=== PATIENT | male | born 1990 | race Caucasian/White ===

== ENCOUNTER 2018-12-26 11:15 | Emergency (ER) | payer SELFPAY ==
[2018-12-26 11:20] VITALS: BP 182/107; PULSE 113; RESP 19; TEMP 36.8; O2SAT 98
[2018-12-26 15:13] VITALS: BP 145/62; PULSE 101; RESP 19; O2SAT 94
--- NOTE | 2018-12-26 15:25 | ED.SOB ---
HPI - SOB/Dyspnea <GEORGE Roberts - Last Filed: 12/26/18 22:12> General Chief Complaint: Shortness of Breath/Dyspnea Stated Complaint: 'POSSIBLE CHF' Time Seen by Provider: 12/26/18 15:00 Source: patient Mode of arrival: ambulatory Limitations: no limitations History of Present Illness 28-year-old male with history of reflux and is a former smoker here for complaint of having occasional swelling to his high lower extremities over the past couple of months. She also reports he has had occasional bouts of shortness of breath. He states that he has had a productive cough over the past few days that had some blood tinged sputum. He denies any fevers. No chest pain. He states he is concerned for heart failure. He denies any stressors relievers of his symptoms. Positive p.o. intake. No nausea vomiting. He denies any other concerns or complaints at this timeframe. He denies any prior cardiac history. Related Data Home Medications Medication Instructions Recorded Confirmed omeprazole 40 mg PO DAILY 12/26/18 12/26/18 Allergies Allergy/AdvReac Type Severity Reaction Status Date / Time tramadol [From ULTRA] Allergy Unknown Unverified 12/26/18 11:24 Review of Systems <GEORGE Roberts - Last Filed: 12/26/18 22:12> Constitutional Denies chills, Denies fever(s), Denies lethargy and Denies weakness Eyes Denies change in vision, Denies eye discharge, Denies irritation and Denies loss of vision ENT Ears, Nose, Mouth, and Throat: Denies change in voice, Denies neck pain, Denies sore throat and Denies throat swelling Cardiovascular Denies chest pain, Denies irregular heart rhythm, Denies lightheadedness, Denies palpitations, Reports dyspnea and Denies orthopnea Respiratory Reports cough, Reports dyspnea and Denies wheezing Gastrointestinal Gastrointestinal: Denies abdominal pain, Denies change in bowel habits, Denies diarrhea, Denies nausea and Denies vomiting Genitourinary Denies hematuria, Denies flank pain, Denies urinary incontinence and Denies urinary urgency Musculoskeletal Denies neck pain Comments: Edema to lower extremities Integumentary/Breasts Denies pruritus, Denies erythema, Denies rash and Denies wounds Neurologic Denies confusion, Denies loss of vision and Denies weakness Psychiatric Denies anxiety, Denies confusion, Denies depression, Denies homicidal ideation and Denies suicidal ideation Endocrine Denies palpitations Hematologic/Lymphatic Denies easy bruising Allergic/Immunologic Denies urticaria, Denies throat swelling and Denies wheezing PFSH <GEORGE Roberts - Last Filed: 12/26/18 22:12> Social History Smoking Status: Former smoker Social History Smoking Status: Former smoker Exam <GEORGE Roberts - Last Filed: 12/26/18 22:12> Initial Vital Signs Initial Vital Signs: Vital Signs Temperature 98.2 F 12/26/18 11:20 Pulse Rate 113 H 12/26/18 11:20 Respiratory Rate 12/26/18 11:20 Blood Pressure 182/107 H 12/26/18 11:20 Pulse Oximetry 98 12/26/18 11:20 Const General: cooperative and well developed Nutritional Appearance: well nourished Orientation: alert, awake, oriented x3 and not confused HENNM Mouth: oral mucosae normal and moist mucous membranes Eyes Conjunctivae: conjunctivae normal Sclera: sclerae normal Pupils: PERRL EOM: EOM intact bilaterally Resp Effort & Inspection: normal respiratory effort, able to speak in complete sentences, no respiratory distress and no use of accessory muscles Auscultation: clear to auscultation bilaterally, no rales, no rhonchi and no wheezes Cardio Rate: regular rate Rhythm: regular rhythm Heart Sounds: no click, no gallops, no murmurs and no rubs Pulses: normal peripheral pulses Skin General: no rashes or lesions noted, No jaundice and No petechiae Neuro General: alert, oriented x3, gait normal and no focal motor deficits Speech: speech normal Extrem Other: bilateral lower extremities with distal CMS intact. No appreciated edema on exam. <Michaelle Romero DO - Last Filed: 12/27/18 08:28> Initial Vital Signs Initial Vital Signs: Vital Signs Temperature 98.2 F 12/26/18 11:20 Pulse Rate 113 H 12/26/18 11:20 Respiratory Rate 12/26/18 11:20 Blood Pressure 182/107 H 12/26/18 11:20 Pulse Oximetry 98 12/26/18 11:20 Course <GEORGE Roberts - Last Filed: 12/26/18 22:12> Orders Ordered: ED Orders 12/26/18 15:30 XR chest 1V Stat 12/26/18 15:45 B Type Natriuretic Peptide Stat Complete Blood Count AUTO DIFF Stat Comprehensive Metabolic Panel Stat Troponin & CK Cardiac Panel Stat Vital Signs - 8 hr 12/26/18 15:13 12/26/18 16:00 12/26/18 17:04 Pulse Rate 101 H 79 69 Respiratory Rate 19 18 17 Blood Pressure [Left Arm] 145/62 H 136/60 127/82 Pulse Oximetry 94 99 98 <Michaelle Romero DO - Last Filed: 12/27/18 08:28> Orders Ordered: ED Orders 12/26/18 15:30 XR chest 1V Stat 12/26/18 15:45 B Type Natriuretic Peptide Stat Complete Blood Count AUTO DIFF Stat Comprehensive Metabolic Panel Stat Troponin & CK Cardiac Panel Stat Vital Signs - 8 hr 12/26/18 15:13 12/26/18 16:00 12/26/18 17:04 Pulse Rate 101 H 79 69 Respiratory Rate 19 18 17 Blood Pressure [Left Arm] 145/62 H 136/60 127/82 Pulse Oximetry 94 99 98 MDM - SOB/Dyspnea <GEORGE Roberts - Last Filed: 12/26/18 22:12> Lab Data Result diagrams: 12/26/18 15:45 12/26/18 15:45 Lab Results 12/26/18 12/26/18 Range/Units 15:45 15:45 WBC 9.0 (4.5-11.0) X10^3/uL RBC 5.39 (4.5-5.9) X10^6/uL Hgb 15.6 (13.5-17.5) g/dL Hct 46.0 (41-53) % MCV 85.4 (80-100) fL MCH 29.0 (26-34) PG MCHC 34.0 (30-36) % RDW 14.5 (11.6-14.8) % Plt Count 323 (150-400) X10^3/uL Neut % (Auto) 72.2 (50-75) % Lymph % (Auto) 17.5 L (25-40) % [place] % (Auto) 8.1 (3-14) % Eos % (Auto) 1.0 L (2-4) % Baso % (Auto) 1.2 (0-2) % Neut # (Auto) 6500 (4887-8401) /uL Lymph # (Auto) 1600 (2292-0883) /uL [place] # (Auto) 700 (0-900) /uL Eos # (Auto) 100 (0-450) /uL Baso # (Auto) 100 (0-100) /uL Sodium 141 (137-145) mmol/L Potassium 4.2 (3.4-5.1) mmol/L Chloride 101 (98-107) mmol/L Carbon Dioxide 30 (22-32) mmol/L BUN 14 (9-20) mg/dL Creatinine 0.70 (0.66-1.25) mg/dL Estimated GFR > 60.0 (>60) mL/min BUN/Creatinine Ratio 20.0 (6-22) Glucose 156 H (70-100) mg/dL Calcium 9.7 (8.4-10.2) mg/dL Total Bilirubin 0.3 (0.2-1.3) mg/dL AST 34 (17-59) IU/L ALT 59 (21-72) IU/L Alkaline Phosphatase 65 (38-126) U/L Total Creatine Kinase 139 (55-170) U/L CK-MB (CK-2) 0.90 (<2.37) ng/mL CK-MB (CK-2) Rel Index 0.6 L (1.5-5.0) % Troponin I < 0.012 (0.01-0.034) ng/mL B-Natriuretic Peptide < 100 (<100) Total Protein 8.1 (6.3-8.2) g/dL Albumin 4.5 (3.5-5.0) g/dL Globulin 3.6 (1.7-4.1) g/dL Albumin/Globulin Ratio 1.3 (1.0-2.8) Imaging Data Chest x-ray: Radiologist's impression: [address] [address] XRay Report Signed Patient: Piter Domínguez#: [id number] : 1990Acct:[id number] Age/Sex: MDate of Service: 12/26/18 Loc: ED Accession Number: [id number] Procedure: XR chest 1V Ordering Provider: Willy Jaramillo PROCEDURE: XR CHEST 1V INDICATIONS: swelling to bilateral lower extremities productive cough TECHNIQUE: One view of the chest was acquired. COMPARISON: [facility], , CHEST 2 VIEW, 11/28/2017, 8:03. FINDINGS: Surgical changes and devices: None. Lungs and pleura: Lungs are clear. No pleural effusions or pneumothorax. Mediastinum: Mediastinal contours appear normal. Heart size is normal. Bones and chest wall: No suspicious bony lesions. Overlying soft tissues appear unremarkable. IMPRESSION: Portable chest within normal limits. Dictated by: Damian Culp M.D. on 12/26/2018 at 14:55 Approved by: Damian Culp M.D. on 12/26/2018 at 14:55 ECG Data Interpretation: EKG shows sinus rhythm with no ST elevation or depression. No ectopy. Ventricular rate of 105. Pr interval 118. QRS duration of 88. QTC of 380. MDM Narrative Medical decision making narrative: chest x-ray was obtained was negative for any acute findings. EKG shows sinus rhythm with no ST elevation or depression. No ectopy. Cardiac enzymes were obtained were unremarkable. BNP was obtained and was negative. CBC andCMP was obtained was unremarkable. patient was reassured. Cough suggestive of a viral upper respiratory infection. subjective edema is normally after patient works and has been on his feet all day Suggestive of dependent edema. Will have him use elevation to help with any edema.Follow up with primary care provider next week for re-evaluation. For any worsening symptoms return emergency room. <Michaelle Romero DO - Last Filed: 12/27/18 08:28> Lab Data Lab Results 12/26/18 12/26/18 Range/Units 15:45 15:45 WBC 9.0 (4.5-11.0) X10^3/uL RBC 5.39 (4.5-5.9) X10^6/uL Hgb 15.6 (13.5-17.5) g/dL Hct 46.0 (41-53) % MCV 85.4 (80-100) fL MCH 29.0 (26-34) PG MCHC 34.0 (30-36) % RDW 14.5 (11.6-14.8) % Plt Count 323 (150-400) X10^3/uL Neut % (Auto) 72.2 (50-75) % Lymph % (Auto) 17.5 L (25-40) % [place] % (Auto) 8.1 (3-14) % Eos % (Auto) 1.0 L (2-4) % Baso % (Auto) 1.2 (0-2) % Neut # (Auto) 6500 (4101-0328) /uL Lymph # (Auto) 1600 (5967-8350) /uL [place] # (Auto) 700 (0-900) /uL Eos # (Auto) 100 (0-450) /uL Baso # (Auto) 100 (0-100) /uL Sodium 141 (137-145) mmol/L Potassium 4.2 (3.4-5.1) mmol/L Chloride 101 (98-107) mmol/L Carbon Dioxide 30 (22-32) mmol/L BUN 14 (9-20) mg/dL Creatinine 0.70 (0.66-1.25) mg/dL Estimated GFR > 60.0 (>60) mL/min BUN/Creatinine Ratio 20.0 (6-22) Glucose 156 H (70-100) mg/dL Calcium 9.7 (8.4-10.2) mg/dL Total Bilirubin 0.3 (0.2-1.3) mg/dL AST 34 (17-59) IU/L ALT 59 (21-72) IU/L Alkaline Phosphatase 65 (38-126) U/L Total Creatine Kinase 139 (55-170) U/L CK-MB (CK-2) 0.90 (<2.37) ng/mL CK-MB (CK-2) Rel Index 0.6 L (1.5-5.0) % Troponin I < 0.012 (0.01-0.034) ng/mL B-Natriuretic Peptide < 100 (<100) Total Protein 8.1 (6.3-8.2) g/dL Albumin 4.5 (3.5-5.0) g/dL Globulin 3.6 (1.7-4.1) g/dL Albumin/Globulin Ratio 1.3 (1.0-2.8) Discharge Plan Departure Patient Disposition: Home Clinical Impression: Viral URI, Dependent edema Discharge Date/Time: 12/26/18 17:11 Interventions: ED Discharge Assessment Last Done: 12/26/18 17:11 Instructions: DI for Viral Upper Respiratory Infection -- Adult, DI for Dependent Edema Activity Restrictions/Additional Instructions: EKG chest x-ray and laboratory results today were unremarkable. Cough and blood tinged sputum presents as viral upper respiratory infection. Edema to lower extremities presents as a dependent edema did recommend using elevation to a help with any edema that occurs. Follow up with primary care provider next week for re-evaluation. For any worsening symptoms return to the emergency room. Prescriptions: No Action omeprazole 40 mg Capsule,Delayed Release(Dr/Ec) 40 mg PO DAILY RF: 0 Referrals: [facility] [Provider Group] <Michaelle Romero DO - Last Filed: 12/27/18 08:28> Cosign ED Attending Cosignature Attestation: I was immediately available in the department for consultation. This documentation has been reviewed and I agree with assessment and plan. Supervised by Michaelle Romero DO
--- NOTE | 2018-12-26 15:30 | DI.RAD.S_ITS ---
PROCEDURE: XR CHEST 1V INDICATIONS: swelling to bilateral lower extremities productive cough TECHNIQUE: One view of the chest was acquired. COMPARISON: [facility], , CHEST 2 VIEW, 11/28/2017, 8:03. FINDINGS: Surgical changes and devices: None. Lungs and pleura: Lungs are clear. No pleural effusions or pneumothorax. Mediastinum: Mediastinal contours appear normal. Heart size is normal. Bones and chest wall: No suspicious bony lesions. Overlying soft tissues appear unremarkable. IMPRESSION: Portable chest within normal limits. Dictated by: Damian Culp M.D. on 12/26/2018 at 14:55 Approved by: Damian Culp M.D. on 12/26/2018 at 14:55
[2018-12-26 15:56] LABS: Add Manual Diff / Slide Review NO; Basophils Absolute Auto 100 /uL (0-100); Basophils Percent Auto 1.2 % (0-2); Eosinophils Absolute Auto 100 /uL (0-450); Hemoglobin 15.6 g/dL (13.5-17.5); Lymphocytes Absolute Auto 1600 /uL (1100-4500); Lymphocytes Percent Auto 17.5 % (25-40); Mean Corpuscular Volume 85.4 fL (80-100); Monocytes Absolute Auto 700 /uL (0-900); Monocytes Percent Auto 8.1 % (3-14); Neutrophils Absolute Auto 6500 /uL (1500-7000); Neutrophils Percent Auto 72.2 % (50-75); Platelet Count 323 X10^3/uL (150-400); Red Blood Cell Count 5.39 X10^6/uL (4.5-5.9); Red Cell Distribution Width 14.5 % (11.6-14.8)
[2018-12-26 16:00] VITALS: BP 136/60; PULSE 79; RESP 18; O2SAT 99
[2018-12-26 16:11] LABS: Alanine Aminotransferase 59 IU/L (21-72); Albumin 4.5 g/dL (3.5-5.0); Albumin Globulin Ratio 1.3 (1.0-2.8); Alkaline Phosphatase 65 U/L (38-126); Aspartate Aminotransferase 34 IU/L (17-59); Bilirubin Total 0.3 mg/dL (0.2-1.3); Blood Urea Nitrogen 14 mg/dL (9-20); Calcium 9.7 mg/dL (8.4-10.2); Carbon Dioxide 30 mmol/L (22-32); Chloride 101 mmol/L (98-107); Creatine Kinase 139 U/L (55-170); Estimated Glomerular Filt Rate > 60.0 mL/min (>60); Globulin 3.6 g/dL (1.7-4.1); Glucose 156 mg/dL (70-100); HEMOLYSIS < 15 (0-50); Potassium 4.2 mmol/L (3.4-5.1); Sodium 141 mmol/L (137-145); Total Protein 8.1 g/dL (6.3-8.2)
[2018-12-26 16:23] LABS: B Type Natriuretic Peptide < 100 (<100); Troponin I < 0.012 ng/mL (0.01-0.034)
[2018-12-26 16:26] LABS: CKMB % Relative Index 0.6 % (1.5-5.0)
--- NOTE | 2018-12-26 17:00 | ED_ITS ---
HPI - SOB/Dyspnea <GEORGE Roberts - Last Filed: 12/26/18 22:12> General Chief Complaint: Shortness of Breath/Dyspnea Stated Complaint: 'POSSIBLE CHF' Time Seen by Provider: 12/26/18 15:00 Source: patient Mode of arrival: ambulatory Limitations: no limitations History of Present Illness 28-year-old male with history of reflux and is a former smoker here for complaint of having occasional swelling to his high lower extremities over the past couple of months. She also reports he has had occasional bouts of sh ortness of breath. He states that he has had a productive cough over the past few days that had some blood tinged sputum. He denies any fevers. No chest pain. He states he is concerned for heart failure. He denies any stressors relievers of his symptoms. Positive p.o. intake. No nausea vomiting. He denies any other concerns or complaints at this timeframe. He denies any prior cardiac history. Related Data Home Medications Medication Instructions Recorded Confirmed omeprazole 40 mg PO DAILY 12/26/18 12/26/18 Allergies Allergy/AdvReac Type Severity Reaction Status Date / Time tramadol [From ULTRAM] Allergy Unknown Unverified 12/26/18 11:24 Review of Systems <GEORGE Roberts - Last Filed: 12/26/18 22:12> Constitutional Denies chills, Denies fever(s), Denies lethargy and Denies weakness Eyes Denies change in vision, Denies eye discharge, Denies irritation and Denies loss of vision ENT Ears, Nose, Mouth, and Throat: Denies change in voice, Denies neck pain, Denies sore throat and Denies throat swelling Cardiovascular Denies chest pain, Denies irregular heart rhythm, Denies lightheadedness, Denies palpitations, Reports dyspnea and Denies orthopnea Respiratory Reports cough, Reports dyspnea and Denies wheezing Gastrointestinal Gastrointestinal: Denies abdominal pain, Denies change in bowel habits, Denies diarrhea, Denies nausea and Denies vomiting Genitourinary Denies hematuria, Denies flank pain, Denies urinary incontinence and Denies urinary urgency Musculoskeletal Denies neck pain Comments: Edema to lower extremities Integumentary/Breasts Denies pruritus, Denies erythema, Denies rash and Denies wounds Neurologic Denies confusion, Denies loss of vision and Denies weakness Psychiatric Denies anxiety, Denies confusion, Denies depression, Denies homicidal ideation and Denies suicidal ideation Endocrine Denies palpitations Hematologic/Lymphatic Denies easy bruising Allergic/Immunologic Denies urticaria, Denies throat swelling and Denies wheezing PFSH <GEORGE Roberts - Last Filed: 12/26/18 22:12> Social History Smoking Status: Former smoker Social History Smoking Status: Former smoker Exam <GEORGE Roberts - Last Filed: 12/26/18 22:12> Initial Vital Signs Initial Vital Signs: Vital Signs Temperature 98.2 F 12/26/18 11:20 Pulse Rate 113 H 12/26/18 11:20 Respiratory Rate 12/26/18 11:20 Blood Pressure 182/107 H 12/26/18 11:20 Pulse Oximetry 98 12/26/18 11:20 Const General: cooperative and well developed Nutritional Appearance: well nourished Orientation: alert, awake, oriented x3 and not confused HENPA Mouth: oral mucosae normal and moist mucous membranes Eyes Conjunctivae: conjunctivae normal Sclera: sclerae normal Pupils: PERRL EOM: EOM intact bilaterally Resp Effort & Inspection: normal respiratory effort, able to speak in complete sentences, no respiratory distress and no use of accessory muscles Auscultation: clear to auscultation bilaterally, no rales, no rhonchi and no wheezes Cardio Rate: regular rate Rhythm: regular rhythm Heart Sounds: no click, no gallops, no murmurs and no rubs Pulses: normal peripheral pulses Skin General: no rashes or lesions noted, No jaundice and No petechiae Neuro General: alert, oriented x3, gait normal and no focal motor deficits Speech: speech normal Extrem Other: bilateral lower extremities with distal CMS intact. No appreciated edema on exam. <Michaelle Romero DO - Last Filed: 12/27/18 08:28> Initial Vital Signs Initial Vital Signs: Vital Signs Temperature 98.2 F 12/26/18 11:20 Pulse Rate 113 H 12/26/18 11:20 Respiratory Rate 12/26/18 11:20 Blood Pressure 182/107 H 12/26/18 11:20 Pulse Oximetry 98 12/26/18 11:20 Course <GEORGE Roberts - Last Filed: 12/26/18 22:12> Orders Ordered: ED Orders 12/26/18 15:30 XR chest 1V Stat 12/26/18 15:45 B Type Natriuretic Peptide Stat Complete Blood Count AUTO DIFF Stat Comprehensive Metabolic Panel Stat Troponin & CK Cardiac Panel Stat Vital Signs - 8 hr 12/26/18 15:13 12/26/18 16:00 12/26/18 17:04 Pulse Rate 101 H 79 69 Respiratory Rate 19 18 17 Blood Pressure [Left Arm] 145/62 H 136/60 127/82 Pulse Oximetry 94 99 98 <Michaelle Romero DO - Last Filed: 12/27/18 08:28> Orders Ordered: ED Orders 12/26/18 15:30 XR chest 1V Stat 12/26/18 15:45 B Type Natriuretic Peptide Stat Complete Blood Count AUTO DIFF Stat Comprehensive Metabolic Panel Stat Troponin & CK Cardiac Panel Stat Vital Signs - 8 hr 12/26/18 15:13 12/26/18 16:00 12/26/18 17:04 Pulse Rate 101 H 79 69 Respiratory Rate 19 18 17 Blood Pressure [Left Arm] 145/62 H 136/60 127/82 Pulse Oximetry 94 99 98 MDM - SOB/Dyspnea <GEORGE Roberts - Last Filed: 12/26/18 22:12> Lab Data Result diagrams: 12/26/18 15:45 12/26/18 15:45 Lab Results 12/26/18 12/26/18 Range/Units 15:45 15:45 WBC 9.0 (4.5-11.0) X10^3/uL RBC 5.39 (4.5-5.9) X10^6/uL Hgb 15.6 (13.5-17.5) g/dL Hct 46.0 (41-53) % MCV 85.4 (80-100) fL MCH 29.0 (26-34) PG MCHC 34.0 (30-36) % RDW 14.5 (11.6-14.8) % Plt Count 323 (150-400) X10^3/uL Neut % (Auto) 72.2 (50-75) % Lymph % (Auto) 17.5 L (25-40) % [place] % (Auto) 8.1 (3-14) % Eos % (Auto) 1.0 L (2-4) % Baso % (Auto) 1.2 (0-2) % Neut # (Auto) 6500 (2281-6560) /uL Lymph # (Auto) 1600 (7172-0879) /uL [place] # (Auto) 700 (0-900) /uL Eos # (Auto) 100 (0-450) /uL Baso # (Auto) 100 (0-100) /uL Sodium 141 (137-145) mmol/L Potassium 4.2 (3.4-5.1) mmol/L Chloride 101 (98-107) mmol/L Carbon Dioxide 30 (22-32) mmol/L BUN 14 (9-20) mg/dL Creatinine 0.70 (0.66-1.25) mg/dL Estimated GFR > 60.0 (>60) mL/min BUN/Creatinine Ratio 20.0 (6-22) Glucose 156 H (70-100) mg/dL Calcium 9.7 (8.4-10.2) mg/dL Total Bilirubin 0.3 (0.2-1.3) mg/dL AST 34 (17-59) IU/L ALT 59 (21-72) IU/L Alkaline Phosphatase 65 (38-126) U/L Total Creatine Kinase 139 (55-170) U/L CK-MB (CK-2) 0.90 (<2.37) ng/mL CK-MB (CK-2) Rel Index 0.6 L (1.5-5.0) % Troponin I < 0.012 (0.01-0.034) ng/mL B-Natriuretic Peptide < 100 (<100) Total Protein 8.1 (6.3-8.2) g/dL Albumin 4.5 (3.5-5.0) g/dL Globulin 3.6 (1.7-4.1) g/dL Albumin/Globulin Ratio 1.3 (1.0-2.8) Imaging Data Chest x-ray: Radiologist's impression: [address] [address] XRay Report Signed Patient: Piter Domínguez#: [id number] : 1990Acct:[id number] Age/Sex: te of Service: 12/26/18 Loc: ED Accession Number: [id number] Procedure: XR chest 1V Ordering Provider: Willy Jraamillo PROCEDURE: XR CHEST 1V INDICATIONS: swelling to bilateral lower extremities productive cough TECHNIQUE: One view of the chest was acquired. COMPARISON: [facility], , CHEST 2 VIEW, 11/28/2017, 8:03. FINDINGS: Surgical changes and devices: None. Lungs and pleura: Lungs are clear. No pleural effusions or pneumothorax. Mediastinum: Mediastinal contours appear normal. Heart size is normal. Bones and chest wall: No suspicious bony lesions. Overlying soft tissues appear unremarkable. IMPRESSION: Portable chest within normal limits. Dictated by: Damian Culp M.D. on 12/26/2018 at 14:55 Approved by: Damian Culp M.D. on 12/26/2018 at 14:55 ECG Data Interpretation: EKG shows sinus rhythm with no ST elevation or depression. No ectopy. Ventricular rate of 105. Pr interval 118. QRS duration of 88. QTC of 380. MDM Narrative Medical decision making narrative: chest x-ray was obtained was negative for any acute findings. EKG shows sinus rhythm with no ST elevation or depression. No ectopy. Cardiac enzymes were obtained were unremarkable. BNP was obtained and was negative. CBC andCMP was obtained was unremarkable. patient was reassured. Cough suggestive of a viral upper respiratory infection. subjective edema is normally after patient works and has been on his feet all day Suggestive of dependent edema. Will have him use elevation to help with any edema.Follow up with primary care provider next week for re-evaluation. For any worsening symptoms return emergency room. <Michaelle Romero DO - Last Filed: 12/27/18 08:28> Lab Data Lab Results 12/26/18 12/26/18 Range/Units 15:45 15:45 WBC 9.0 (4.5-11.0) X10^3/uL RBC 5.39 (4.5-5.9) X10^6/uL Hgb 15.6 (13.5-17.5) g/dL Hct 46.0 (41-53) % MCV 85.4 (80-100) fL MCH 29.0 (26-34) PG MCHC 34.0 (30-36) % RDW 14.5 (11.6-14.8) % Plt Count 323 (150-400) X10^3/uL Neut % (Auto) 72.2 (50-75) % Lymph % (Auto) 17.5 L (25-40) % [place] % (Auto) 8.1 (3-14) % Eos % (Auto) 1.0 L (2-4) % Baso % (Auto) 1.2 (0-2) % Neut # (Auto) 6500 (3177-4820) /uL Lymph # (Auto) 1600 (3867-1578) /uL [place] # (Auto) 700 (0-900) /uL Eos # (Auto) 100 (0-450) /uL Baso # (Auto) 100 (0-100) /uL Sodium 141 (137-145) mmol/L Potassium 4.2 (3.4-5.1) mmol/L Chloride 101 (98-107) mmol/L Carbon Dioxide 30 (22-32) mmol/L BUN 14 (9-20) mg/dL Creatinine 0.70 (0.66-1.25) mg/dL Estimated GFR > 60.0 (>60) mL/min BUN/Creatinine Ratio 20.0 (6-22) Glucose 156 H (70-100) mg/dL Calcium 9.7 (8.4-10.2) mg/dL Total Bilirubin 0.3 (0.2-1.3) mg/dL AST 34 (17-59) IU/L ALT 59 (21-72) IU/L Alkaline Phosphatase 65 (38-126) U/L Total Creatine Kinase 139 (55-170) U/L CK-MB (CK-2) 0.90 (<2.37) ng/mL CK-MB (CK-2) Rel Index 0.6 L (1.5-5.0) % Troponin I < 0.012 (0.01-0.034) ng/mL B-Natriuretic Peptide < 100 (<100) Total Protein 8.1 (6.3-8.2) g/dL Albumin 4.5 (3.5-5.0) g/dL Globulin 3.6 (1.7-4.1) g/dL Albumin/Globulin Ratio 1.3 (1.0-2.8) Discharge Plan Departure Patient Disposition: Home Clinical Impression: Viral URI, Dependent edema Discharge Date/Time: 12/26/18 17:11 Interventions: ED Discharge Assessment Last Done: 12/26/18 17:11 Instructions: DI for Viral Upper Respiratory Infection -- Adult, DI for Dependent Edema Activity Restrictions/Additional Instructions: EKG chest x-ray and laboratory results today were unremarkable. Cough and blood tinged sputum presents as viral upper respiratory infection. Edema to lower extremities presents as a dependent edema did recommend using elevation to a help with any edema that occurs. Follow up with primary care provider next week for re-evaluation. For any worsening symptoms return to the emergency room. Prescriptions: No Action omeprazole 40 mg Capsule,Delayed Release(Dr/Ec) 40 mg PO DAILY RF: 0 Referrals: [facility] [Provider Group] <Michaelle Romero DO - Last Filed: 12/27/18 08:28> Cosign ED Attending Cosignature Attestation: I was immediately available in the department for consultation. This documentation has been reviewed and I agree with assessment and plan. Supervised by Michaelle Romero DO
[2018-12-26 17:04] VITALS: BP 127/82; PULSE 69; RESP 17; O2SAT 98
== END 2018-12-26 17:11 | disposition home or self-care (01) ==
PROVIDERS: Emergency Provider Nurse Practitioner Family
DX: J06.9 Acute upper respiratory infection, unspecified (principal); R60.9 Edema, unspecified
CPT/HCPCS: 36415; 71045; 80053; 82550; 82553; 83880; 84484; 85025; 93005; 99283; 99285

== ENCOUNTER 2019-03-01 15:19 | Emergency (ER) | payer SELFPAY ==
[2019-03-01 15:23] VITALS: BP 155/90; PULSE 121; RESP 22; TEMP 36.7; O2SAT 95; BMI 56.2
--- NOTE | 2019-03-01 16:21 | DI.CT.S_ITS ---
PROCEDURE: CT ABDOMEN PELVIS W CON INDICATIONS: LLQ and inguinal pain TECHNIQUE: After the administration of intravenous contrast, 5 mm thick sections acquired from the diaphragm to the symphysis. 5 mm coronal and sagittal reformats were acquired. For radiation dose reduction, the following was used: automated exposure control, adjustment of mA and/or kV according to patient size. COMPARISON: None. FINDINGS: Image quality: Excellent. ABDOMEN: Lung bases: Lung bases are clear. Heart size is normal. Solid organs: Liver is enlarged in size at 25.7 cm craniocaudad, and normal in enhancement, but there is diffuse moderate fatty infiltration throughout the liver. Gallbladder appears normal. Biliary system is non dilated. Pancreas enhances normally. Spleen is normal in size and enhancement. No adrenal nodules. Kidneys demonstrate normal size and enhancement, without hydronephrosis. Peritoneum and bowel: Bowel loops demonstrate normal wall thickness and caliber. No free fluid or air. Nodes and vessels: No retroperitoneal or mesenteric adenopathy by size criteria. Aorta and inferior vena cava are normal in size. Miscellaneous: No ventral hernias. PELVIS: Genitourinary: Bladder wall thickness is normal. Miscellaneous: No inguinal hernias or adenopathy. Bones: No suspicious bony lesions. No vertebral body compression fractures. IMPRESSION: Hepatomegaly with diffuse fatty infiltration relatively prominent throughout the liver. The spleen is not enlarged. Source of left lower quadrant pain is not seen-mild sigmoid diverticulosis is noted without acute diverticulitis. No free fluid throughout the peritoneal space is seen. Dictated by: Deondre Holbrook M.D. on 03/01/2019 at 17:49 Approved by: Deondre Holbrook M.D. on 03/01/2019 at 17:51
--- NOTE | 2019-03-01 16:28 | ED.ABDPAIN ---
HPI - Abdominal Pain General Chief Complaint: Abdominal Pain Stated Complaint: thinks he has a hernia Time Seen by Provider: 03/01/19 15:43 Source: patient Mode of arrival: ambulatory Limitations: no limitations History of Present Illness HPI narrative: Patient presents the emergency department complaining of left groin pain. patient states that he has had a sharp, tearing type of pain that has been centered in his left inguinal area. He denies nausea or vomiting. He states that when he tries to urinate, he feels a sharp pain just to the left of his suprapubic area. 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 He states that when he does this, he notices an increase in his left inguinal pain. Patient denies any fevers. No dysuria with respect to urethral discomfort. No hematuria. No diarrhea or blood the stool. No history of this previously. Patient states the symptoms happened the 1st time about a week ago, and have been recurring daily in an intermittent fashion. He states that the pain decreases to about a 1/10 early in the day, but that when the patient starts lifting the pain goes up again. After the lifting, during which the pain is 10/10, the pain slowly subsides. Currently, patient states his pain is a 5/10. Patient denies any scrotal swelling or mass. No testicular pain. no pain radiating into his scrotum. Related Data Home Medications Medication Instructions Recorded Confirmed omeprazole 40 mg PO DAILY 12/26/18 12/26/18 Allergies Allergy/AdvReac Type Severity Reaction Status Date / Time tramadol [From ULTRAM] Allergy Unknown Unverified 12/26/18 11:24 Review of Systems Constitutional Denies chills, Denies fever(s), Denies lethargy and Denies weakness Eyes Denies change in vision, Denies eye discharge, Denies irritation and Denies loss of vision ENT Ears, Nose, Mouth, and Throat: Denies change in voice, Denies neck pain and Denies sore throat Cardiovascular Denies chest pain, Denies irregular heart rhythm, Denies lightheadedness, Denies palpitations, Denies dyspnea, Denies dyspnea on exertion and Denies orthopnea Respiratory Denies cough, Denies dyspnea, Denies dyspnea on exertion and Denies wheezing Gastrointestinal Gastrointestinal: Reports abdominal pain, Denies change in bowel habits, Denies diarrhea, Denies nausea and Denies vomiting Genitourinary Denies hematuria, Denies flank pain, Denies urinary incontinence and Denies urinary urgency Musculoskeletal Denies neck pain Integumentary/Breasts Denies pruritus, Denies erythema, Denies rash and Denies wounds Neurologic Denies confusion, Denies loss of vision and Denies weakness Psychiatric Denies anxiety, Denies confusion, Denies depression, Denies homicidal ideation and Denies suicidal ideation Endocrine Denies palpitations Hematologic/Lymphatic Denies easy bruising Allergic/Immunologic Denies wheezing [employer] Medical History Morbid obesity (Acute) Lumbar strain (Acute) Social History Smoking Status: Former smoker Social History Smoking Status: Former smoker Exam Initial Vital Signs Initial Vital Signs: Vital Signs Temperature 98.1 F 03/01/19 15:23 Pulse Rate 121 H 03/01/19 15:23 Respiratory Rate 22 03/01/19 15:23 Blood Pressure 155/90 H 03/01/19 15:23 Pulse Oximetry 95 03/01/19 15:23 Const General: cooperative and well developed Nutritional Appearance: well nourished Orientation: alert, awake, oriented x3 and not confused [facility] Head: normocephalic and atraumatic Ears: external ears normal and TM's normal bilaterally Nose: external nose normal and No nasal discharge Face and sinus: sinuses nontender, face symmetric, no sinus tenderness and No dry mucous membranes Mouth: oral mucosae normal and moist mucous membranes Teeth and gingiva: dentition normal Throat: tonsils normal and uvula midline Eyes General: appearance normal, both eyes and all related structures Eyelids: eyelids normal Conjunctivae: conjunctivae normal Sclera: sclerae normal Pupils: PERRL EOM: EOM intact bilaterally Neck Neck: normal visual inspection, trachea midline, No lymphadenopathy, No midline deformity and No JVD Lymphatic: No lymphedema Chest Chest: normal inspection of the chest Resp Effort & Inspection: normal respiratory effort, able to speak in complete sentences, no respiratory distress and no use of accessory muscles Auscultation: clear to auscultation bilaterally, no rales, no rhonchi and no wheezes Cardio Rate: regular rate Rhythm: regular rhythm Heart Sounds: no click, no gallops, no murmurs and no rubs Pulses: normal peripheral pulses GI Inspection: non-distended Palpation: soft, no hepatosplenomegaly, No guarding and No pulsatile mass Auscultation: normal bowel sounds Other: Patient has tenderness under his pannus, involving the left pelvic and inguinal area this. There is no mass that is palpable. No hernia defect is palpable. There is no fullness of the mons pubis. External: no edema, no hernia, no inguinal lymphadenopathy and no lesions Back/Spine/Pelvis Back: No CVA tenderness Cervical Spine: cervical ROM normal and No pain with cervical ROM Thoracic/Lumbar Spine: thoracic and lumbar spine normal to inspection Skin General: no rashes or lesions noted, No jaundice and No petechiae Neuro General: alert, oriented x3, gait normal and no focal motor deficits Speech: speech normal Extrem General: full ROM, no clubbing, cyanosis or edema, no pedal edema and no calf tenderness Psych Appearance: well kempt Mental Status: mental status grossly normal Attitude: cooperative Thought Content: normal and suicidality Judgment: judgment good Course Course Narrative: Patient was worked up with labs and CT scan of the abdomen and pelvis to evaluate his pain. Patient declined symptomatic management in the emergency department. Workup was negative, and CT scan did not show a distinct hernia. I discussed with the patient that this may represent the beginnings of hernia formation, in which the connective tissue fibers are beginning to develop micro tears which are painful, but no actual tissue herniation as yet occurred. We have discussed the avoidance of heavy lifting, and patient's need for weight loss. We have discussed the patient's need for follow-up, as well as the usual indications for return. No emergent condition has been identified today. Orders Ordered: Discontinued Medications Ketorolac Tromethamine (Toradol) 30 mg IV NOW ONE Stop: 03/01/19 18:14 Last Admin: 03/01/19 18:10 Dose: 30 mg Vital Signs - 8 hr 03/01/19 15:23 Temperature 98.1 F Pulse Rate 121 H Respiratory Rate 22 Blood Pressure 155/90 H Pulse Oximetry 95 MDM - Abdominal Pain Medical Records Attestation: I reviewed the patient's medical records. Lab Data Attestation: I reviewed the patient's lab results. Result diagrams: 03/01/19 16:36 03/01/19 16:36 Lab Results 03/01/19 03/01/19 Range/Units 16:36 16:36 WBC 7.4 (4.5-11.0) X10^3/uL RBC 5.31 (4.5-5.9) X10^6/uL Hgb 15.2 (13.5-17.5) g/dL Hct 44.1 (41-53) % MCV 83.0 (80-100) fL MCH 28.7 (26-34) PG MCHC 34.6 (30-36) % RDW 14.2 (11.6-14.8) % Plt Count 326 (150-400) X10^3/uL Neut % (Auto) 67.1 (50-75) % Lymph % (Auto) 23.0 L (25-40) % [place] % (Auto) 8.2 (3-14) % Eos % (Auto) 0.7 L (2-4) % Baso % (Auto) 1.0 (0-2) % Neut # (Auto) 5000 (1974-8066) /uL Lymph # (Auto) 1700 (9046-8127) /uL [place] # (Auto) 600 (0-900) /uL Eos # (Auto) 100 (0-450) /uL Baso # (Auto) 100 (0-100) /uL Sodium 139 (137-145) mmol/L Potassium 4.2 (3.4-5.1) mmol/L Chloride 100 (98-107) mmol/L Carbon Dioxide 28 (22-32) mmol/L BUN 17 (9-20) mg/dL Creatinine 0.70 (0.66-1.25) mg/dL Estimated GFR > 60.0 (>60) mL/min BUN/Creatinine Ratio 24.3 H (6-22) Glucose 169 H (70-100) mg/dL Calcium 10.9 H (8.4-10.2) mg/dL Total Bilirubin 0.4 (0.2-1.3) mg/dL AST 42 (17-59) IU/L ALT 67 (21-72) IU/L Alkaline Phosphatase 65 (38-126) U/L Total Protein 8.0 (6.3-8.2) g/dL Albumin 4.4 (3.5-5.0) g/dL Globulin 3.6 (1.7-4.1) g/dL Albumin/Globulin Ratio 1.2 (1.0-2.8) Imaging Data CT scan - abdomen: Radiologist's impression: [address] [address] [address] Scan Report Signed Patient: Miguel Domínguez#: [id number] : 1990Acct:[id number] Age/Sex: 28 / MDate of Service: 03/01/19 Loc: ED Accession Number: [id number] Procedure: CT abdomen pelvis w con Ordering Provider: Nata Pierce MD PROCEDURE: CT ABDOMEN PELVIS W CON INDICATIONS: LLQ and inguinal pain TECHNIQUE: After the administration of intravenous contrast, 5 mm thick sections acquired from the diaphragm to the symphysis. 5 mm coronal and sagittal reformats were acquired. For radiation dose reduction, the following was used: automated exposure control, adjustment of mA and/or kV according to patient size. COMPARISON: None. FINDINGS: Image quality: Excellent. ABDOMEN: Lung bases: Lung bases are clear. Heart size is normal. Solid organs: Liver is enlarged in size at 25.7 cm craniocaudad, and normal in enhancement, but there is diffuse moderate fatty infiltration throughout the liver. Gallbladder appears normal. Biliary system is non dilated. Pancreas enhances normally. Spleen is normal in size and enhancement. No adrenal nodules. Kidneys demonstrate normal size and enhancement, without hydronephrosis. Peritoneum and bowel: Bowel loops demonstrate normal wall thickness and caliber. No free fluid or air. Nodes and vessels: No retroperitoneal or mesenteric adenopathy by size criteria. Aorta and inferior vena cava are normal in size. Miscellaneous: No ventral hernias. PELVIS: Genitourinary: Bladder wall thickness is normal. Miscellaneous: No inguinal hernias or adenopathy. Bones: No suspicious bony lesions. No vertebral body compression fractures. IMPRESSION: Hepatomegaly with diffuse fatty infiltration relatively prominent throughout the liver. The spleen is not enlarged. Source of left lower quadrant pain is not seen-mild sigmoid diverticulosis is noted without acute diverticulitis. No free fluid throughout the peritoneal space is seen. Dictated by: Deondre Holbrook M.D. on 03/01/2019 at 17:49 Approved by: Deondre Holbrook M.D. on 03/01/2019 at 17:51 Discharge Plan Departure Patient Disposition: Home Clinical Impression: Abdominal pain Qualifiers: Abdominal location: left lower quadrant Qualified Code(s): R10.32 - Left lower quadrant pain Inguinal strain Qualifiers: Encounter type: initial encounter Laterality: left Qualified Code(s): S76.212A - Strain of adductor muscle, fascia and tendon of left thigh, initial encounter Discharge Date/Time: 03/01/19 18:36 Interventions: ED Discharge Assessment Last Done: 03/01/19 18:36 Instructions: DI for Groin Hernia, DI for Abdominal Pain-Adult Activity Restrictions/Additional Instructions: Your CT scan did not show a clear-cut hernia. However, as we have discussed, when the tissues are in the process of to form the opening for the hernia, this can cause sharp pain, prior to tissues actually being able to herniate through the defective tissue. The most important thing is for the strain to be relieved from the damaged tissues by avoiding heavy lifting or straining. Please talk to your doctor about a weight loss program, as this will also help take the strain off the area. You will be given contact information for the surgery office, as surgical repair is the treatment for a hernia, should one definitively form. At this point, you should be on light duty at work, meaning that you should not do any lifting above 5 lb until cleared to do so. Prescriptions: No Action omeprazole 40 mg Capsule,Delayed Release(Dr/Ec) 40 mg PO DAILY RF: 0 Referrals: [facility] [Provider Group] Stand Alone Forms: Work Release Note
[2019-03-01 16:46] LABS: Add Manual Diff / Slide Review NO; Basophils Absolute Auto 100 /uL (0-100); Eosinophils Absolute Auto 100 /uL (0-450); Eosinophils Percent Auto 0.7 % (2-4); Hematocrit 44.1 % (41-53); Hemoglobin 15.2 g/dL (13.5-17.5); Lymphocytes Absolute Auto 1700 /uL (1100-4500); Mean Corpuscular HGB Conc 34.6 % (30-36); Mean Corpuscular Hemoglobin 28.7 PG (26-34); Monocytes Absolute Auto 600 /uL (0-900); Monocytes Percent Auto 8.2 % (3-14); Neutrophils Absolute Auto 5000 /uL (1500-7000); Neutrophils Percent Auto 67.1 % (50-75); Platelet Count 326 X10^3/uL (150-400); Red Blood Cell Count 5.31 X10^6/uL (4.5-5.9); Red Cell Distribution Width 14.2 % (11.6-14.8); White Blood Cell Count 7.4 X10^3/uL (4.5-11.0)
[2019-03-01 16:59] LABS: Alanine Aminotransferase 67 IU/L (21-72); Albumin 4.4 g/dL (3.5-5.0); Albumin Globulin Ratio 1.2 (1.0-2.8); Alkaline Phosphatase 65 U/L (38-126); Aspartate Aminotransferase 42 IU/L (17-59); BUN Creatinine Ratio 24.3 (6-22); Bilirubin Total 0.4 mg/dL (0.2-1.3); Blood Urea Nitrogen 17 mg/dL (9-20); Calcium 10.9 mg/dL (8.4-10.2); Carbon Dioxide 28 mmol/L (22-32); Chloride 100 mmol/L (98-107); Estimated Glomerular Filt Rate > 60.0 mL/min (>60); Globulin 3.6 g/dL (1.7-4.1); Glucose 169 mg/dL (70-100); HEMOLYSIS < 15 (0-50); Potassium 4.2 mmol/L (3.4-5.1); Sodium 139 mmol/L (137-145)
--- NOTE | 2019-03-01 17:42 | PC.NURSE ---
Patient playing cards with significant other. Drinking iced tea. Denies nausea but reports 7/10 abd pain. Reports that the naproxen is wearing off.
[2019-03-01 17:59] VITALS: BP 138/86
[2019-03-01] MEDS: KETOROLAC 60 MG/2 ML VIAL 30 MG IV (18:10)
== END 2019-03-01 18:36 | disposition home or self-care (01) ==
PROVIDERS: Emergency Provider Emergency Medicine
DX: R10.32 Left lower quadrant pain (principal); S76.212A Strain of adductor muscle, fascia and tendon of left thigh, initial encounter
CPT/HCPCS: 36591; 74177; 80053; 85025; 96374; 99282; 99284; J1885; Q9967

== ENCOUNTER → 2021-04-14 14:46 | Outpatient (ROUT) | payer OTHER, SELFPAY ==
[2021-04-14 15:06] LABS: Add Manual Diff / Slide Review NO; Basophils Absolute Auto 0 /uL (0-100); Basophils Percent Auto 0.6 % (0-2); Eosinophils Absolute Auto 100 /uL (0-450); Eosinophils Percent Auto 0.9 % (2-4); Hematocrit 40.9 % (41-53); Hemoglobin 13.8 g/dL (13.5-17.5); Lymphocytes Absolute Auto 1600 /uL (1100-4500); Lymphocytes Percent Auto 20.2 % (25-40); Mean Corpuscular HGB Conc 33.6 % (30-36); Mean Corpuscular Hemoglobin 28.2 PG (26-34); Mean Corpuscular Volume 84.1 fL (80-100); Monocytes Absolute Auto 500 /uL (0-900); Monocytes Percent Auto 6.2 % (3-14); Neutrophils Absolute Auto 5600 /uL (1500-7000); Neutrophils Percent Auto 72.1 % (50-75); Platelet Count 315 X10^3/uL (150-400); Red Blood Cell Count 4.87 X10^6/uL (4.5-5.9); Red Cell Distribution Width 14.2 % (11.6-14.8); White Blood Cell Count 7.8 X10^3/uL (4.5-11.0)
[2021-04-14 15:22] LABS: Alanine Aminotransferase 37 IU/L (<50); Albumin 3.7 g/dL (3.5-5.0); Albumin Globulin Ratio 1.3 (1.0-2.8); Alkaline Phosphatase 69 U/L (38-126); Aspartate Aminotransferase 29 IU/L (17-59); Bilirubin Total 0.3 mg/dL (0.2-1.3); Blood Urea Nitrogen 17 mg/dL (9-20); Carbon Dioxide 24 mmol/L (22-32); Chloride 101 mmol/L (98-107); Cholesterol 152 mg/dL (140-199); Estimated Glomerular Filt Rate > 60.0 mL/min (>60); Globulin 2.9 g/dL (1.7-4.1); Glucose 275 mg/dL (70-100); HDL Cholesterol 42 mg/dL (40-60); HEMOLYSIS < 15 (0-50); LDL Cholesterol Calculated 75 mg/dL (<100); Potassium 4.6 mmol/L (3.4-5.1); Sodium 134 mmol/L (137-145); Total Protein 6.6 g/dL (6.3-8.2); Triglycerides 175 mg/dL (35-150)
== END ==
PROVIDERS: Visit Provider Internal Medicine
DX: E66.01 Morbid (severe) obesity due to excess calories (principal); E08.8 Diabetes mellitus due to underlying condition with unspecified complications; Z68.43 Body mass index [BMI] 50.0-59.9, adult; I10 Essential (primary) hypertension; E66.9 Obesity, unspecified
CPT/HCPCS: 80053; 80061; 82043; 82570; 85025

== ENCOUNTER 2021-06-05 10:21 | Observation (INO) | payer OTHER, MEDICAID, SELFPAY ==
[2021-06-05] VITALS (14 sets, daily range): BP systolic 112–167; BP diastolic 61–98; PULSE 84–116; RESP 16–37; TEMP 36–37.5; O2SAT 94–100; BMI 53.1
--- NOTE | 2021-06-05 10:31 | DI.RAD.S_ITS ---
PROCEDURE: XR CHEST 1V INDICATIONS: suspected sepsis TECHNIQUE: One view of the chest was acquired. COMPARISON: [facility], CR, XR CHEST 1V, 12/26/2018, 15:42. FINDINGS: Surgical changes and devices: None. Lungs and pleura: Lungs are clear. No pleural effusions or pneumothorax. Mediastinum: Mediastinal contours appear normal. Heart size is accentuated by AP technique, but is likely within normal limits. Bones and chest wall: No suspicious bony lesions. Overlying soft tissues appear unremarkable. IMPRESSION: No acute cardiopulmonary abnormality. Dictated by: Willie Hilton M.D. on 06/05/2021 at 9:48 Approved by: Willie Hilton M.D. on 06/05/2021 at 9:50
[2021-06-05 11:05] LABS: Add Manual Diff / Slide Review NO; Basophils Absolute Auto 0 /uL (0-100); Basophils Percent Auto 0.4 % (0-2); Eosinophils Absolute Auto 0 /uL (0-450); Eosinophils Percent Auto 0.3 % (2-4); Hematocrit 41.9 % (41-53); Hemoglobin 14.2 g/dL (13.5-17.5); Lymphocytes Absolute Auto 800 /uL (1100-4500); Lymphocytes Percent Auto 8.9 % (25-40); Mean Corpuscular HGB Conc 33.8 % (30-36); Mean Corpuscular Hemoglobin 27.9 PG (26-34); Mean Corpuscular Volume 82.6 fL (80-100); Monocytes Absolute Auto 600 /uL (0-900); Monocytes Percent Auto 6.2 % (3-14); Neutrophils Absolute Auto 8000 /uL (1500-7000); Neutrophils Percent Auto 84.2 % (50-75); Platelet Count 233 X10^3/uL (150-400); Red Blood Cell Count 5.07 X10^6/uL (4.5-5.9); Red Cell Distribution Width 14.8 % (11.6-14.8); White Blood Cell Count 9.5 X10^3/uL (4.5-11.0)
[2021-06-05 11:14] LABS: Alanine Aminotransferase 39 IU/L (<50); Albumin 3.9 g/dL (3.5-5.0); Albumin Globulin Ratio 1.1 (1.0-2.8); Alkaline Phosphatase 68 U/L (38-126); Aspartate Aminotransferase 29 IU/L (17-59); BUN Creatinine Ratio 17.5 (6-22); Bilirubin Total 0.5 mg/dL (0.2-1.3); Blood Urea Nitrogen 10 mg/dL (9-20); Calcium 9.1 mg/dL (8.4-10.2); Carbon Dioxide 24 mmol/L (22-32); Chloride 104 mmol/L (98-107); Estimated Glomerular Filt Rate > 60.0 mL/min (>60); Globulin 3.4 g/dL (1.7-4.1); Glucose 187 mg/dL (70-100); HEMOLYSIS < 15 (0-50); Lipase 38 U/L (23-300); Potassium 4.3 mmol/L (3.4-5.1); Sodium 136 mmol/L (137-145); Total Protein 7.3 g/dL (6.3-8.2)
[2021-06-05] MEDS: HYDROMORPHONE 1 MG INJ IV ×2 (11:15→11:53)
[2021-06-05 11:16] LABS: Lactate (Lactic Acid) 0.9 mmol/L (0.7-2.1)
[2021-06-05] MEDS: LIDO 1%/SOD BICARB 8.4% (10ML) 10 ML SYRINGE INJ (11:22)
[2021-06-05] MEDS: SODIUM CHLORIDE 0.9% 1,000 ML 1000 ML IV (11:23)
[2021-06-05 11:30] LABS: Procalcitonin 0.77 ng/mL (<0.5)
[2021-06-05] MEDS: cefTRIAXone 2,000 MG in SODIUM CHLORIDE 0.9% 100 ML 200 ML IV (11:54)
[2021-06-05 12:17] LABS: COVID19 - ADMIT (NP swab/PCR) Negative (Negative)
--- NOTE | 2021-06-05 12:44 | ED.SKABFB ---
HPI - Skin/Abscess/Foreign Bdy General Chief complaint: Skin/Abscess/Foreign Body Stated complaint: hurt right leg Time Seen by Provider: 06/05/21 10:49 History of Present Illness HPI narrative: Patient is a 31-year-old male who has history of diabetes, obesity who presents with severe right leg pain getting worse over the last 2 days. He said he had ?sun poisoning 2 days ago. He said he was out on a boat and came home he had fevers chills could get warm. And has had progressing right lower leg pain. He does have some obvious jones on his forearms no blistering. Right leg is red and really tender. Said he says it hurts whenever he moves his toes. He denies any chest pain cough or shortness of breath, he denies any abdominal pain nausea vomiting. Related Data Home Medications Medication Instructions Recorded Confirmed omeprazole 40 mg capsule,delayed 40 mg PO DAILY 12/26/18 06/05/21 release amlodipine 5 mg tablet (Norvasc) 5 mg PO DAILY 06/05/21 06/05/21 insulin NPH-reg human insulin 100 28 unit SUBCUT ONCE PM 06/05/21 06/05/21 unit/mL (70-30) subcutaneous syringe insulin NPH-reg human insulin 100 32 unit SUBCUT QAM 06/05/21 06/05/21 unit/mL (70-30) subcutaneous syringe lisinopril 10 mg tablet 10 mg PO DAILY 06/05/21 06/05/21 metformin 1,000 mg tablet 1,000 mg PO BID 06/05/21 06/05/21 Allergies Allergy/AdvReac Type Severity Reaction Status Date / Time vancomycin Allergy Intermediate Rash Verified 06/05/21 10:30 tramadol [From ULTRAM] Allergy Unknown Verified 06/05/21 10:30 Review of Systems Review of Systems Narrative: My GENERAL: Denies chills, fatigue, malaise, fever, sweats, travel HEENT: Denies sinus pain, ear pain, sore throat, difficulty swallowing, neck pain RESPIRATORY: Denies dyspnea, cough,] [wheezing,] [hemoptysis,] [sputum.] CARDIOVASCULAR: Denies chest pain, palpitations, orthopnea, edema GASTROINTESTINAL: Denies nausea, vomiting, abdominal pain, diarrhea, constipation, melena. : Denies dysuria, frequency, incontinence, hematuria, urinary retention, flank pain. MUSCULOSKELETAL: Denies weakness, joint pain, or bony pain SKIN: See HPI NEUROLOGIC: Denies weakness, dizziness, headache, numbness, change in speech, confusion PSYCHIATRIC: No concerning psychosocial issues. 12 point review of systems is negative except for those stated above and HPI Patient History Medical History Diabetes Lumbar strain Morbid obesity Social History marital status: unmarried,living together household members: significant other occupational status: employed Smoking Status: Current every day smoker alcohol intake: current substance use type: marijuana Smoking Status: Former smoker alcohol intake frequency: other Substance Use Type: marijuana Exam Initial Vital Signs Initial Vital Signs: Vital Signs Temperature 99.5 F 06/05/21 10:26 Pulse Rate 116 H 06/05/21 10:26 Respiratory Rate 24 06/05/21 10:26 Blood Pressure 167/98 H 06/05/21 10:26 Pulse Oximetry 98 06/05/21 10:26 GENERAL: Alert 31-year-old male BMI 53 appears in pain and in no acute distress. HEENT: Head atraumatic,EOMI, pupils reactive, face symmetric, moist mucous membranes CARDIOVASCULAR: Regular rate and rhythm without murmurs, rubs or gallops. RESPIRATORY: Breath sounds equal bilaterally, no wheezes rales or rhonchi. ABDOMEN: Soft, nontender. Normoactive bowel sounds all 4 quadrants. No guarding or rebound. EXTREMITIES: Normal range of motion, no clubbing or edema. Neurovascularly intact Right lower extremity quite tense extremely painful distal pedal pulse intact hurts to move toes NEUROLOGICAL: Alert and oriented x4.Normal gait and speech. Cranial nerves II through XII grossly intact. SKIN: Right lower extremity erythematous knee to ankle some posteriorly as well, the forearms have some mild erythema no blistering Course Orders Ordered: ED Orders 06/05/21 11:16 COVID19 - ADMIT ([facility] swab/PCR) Stat Acetaminophen (Acetaminophen 325 Mg Tablet) 650 mg PO Q6HR PRN PRN Reason: Fever/Mild Pain (1-3) Last Admin: 06/05/21 13:26 Dose: 650 mg Documented by: BRITTNEE Amlodipine Besylate (Amlodipine 5 Mg Tablet) 5 mg PO DAILY [facility]IMO Docusate Sodium (Docusate 100 Mg Capsule) 100 mg PO BID [facility] Enoxaparin Sodium (Enoxaparin 40 Mg/0.4 Ml Syringe) 40 mg SUBCUT DAILY [facility] [place] Sodium Chloride (Normal Saline 0.9%) 1,000 mls @ 125 mls/hr IV CONT [facility] [place] Last Admin: 06/05/21 13:57 Dose: 125 mls/hr Documented by: KEVINOPAR Ceftriaxone Sodium 2,000 mg/ (Sodium Chloride) 100 mls @ 200 mls/hr IV 1200 [facility] [place] Ibuprofen (Ibuprofen 600 Mg Tablet) 600 mg PO Q6HR PRN PRN Reason: Fever/Mild Pain (1-3) Last Admin: 06/05/21 13:26 Dose: 600 mg Documented by: BRITTNEE Insulin Human Isoph/Insulin Regular (Insulin Nph/Reg 70-30 100 Unit/Ml 3ml Vial) 28 unit SUBCUT 1600 MAXIMO Last Admin: 06/05/21 17:14 Dose: 28 unit Documented by: MERCEDES Cosigned by: JULISSA Insulin Human Isoph/Insulin Regular (Insulin Nph/Reg 70-30 100 Unit/Ml 3ml Vial) 32 unit SUBCUT 0630 [facility] [place] Insulin Human Lispro (Insulin Lispro 100 Unit/Ml 3ml Vial) 0 unit SUBCUT ACHS [facility]; Protocol Last Admin: 06/05/21 17:11 Dose: 1 unit Documented by: MERCEDES Cosigned by: JULISSA Lisinopril (Lisinopril 10 Mg Tablet) 10 mg PO DAILY [facility] [place] Morphine Sulfate (Morphine 4 Mg/Ml Inj) 4 mg IV Q4HR PRN PRN Reason: Pain, Severe (7-10) Naloxone HCl (Naloxone 0.4 Mg/Ml Vial) 0.2 mg IV Q2MIN PRN PRN Reason: Opiate Reversal Ondansetron HCl (Ondansetron 4 Mg/2 Ml Inj) 4 mg IV Q8HR PRN PRN Reason: Nausea And Vomiting Oxycodone HCl (Oxycodone Ir 5 Mg Tablet) 5 mg PO Q6HR PRN PRN Reason: Pain, Moderate (4-6) Last Admin: 06/05/21 13:27 Dose: 5 mg Documented by: BRITTNEE Pantoprazole Sodium (Pantoprazole Dr 40 Mg Tablet) 40 mg PO 0600 [facility] [place] Discontinued Medications Hydromorphone HCl (Hydromorphone 1 Mg Inj) 1 mg IV NOW ONE Stop: 06/05/21 11:10 Last Admin: 06/05/21 11:15 Dose: 1 mg Documented by: MYRANDA Hydromorphone HCl (Hydromorphone 1 Mg Inj) 1 mg IV NOW ONE Stop: 06/05/21 11:31 Last Admin: 06/05/21 11:53 Dose: 1 mg Documented by: JOSHUA Sodium Chloride (Normal Saline 0.9%) 1,000 mls @ 1,000 mls/hr IV BOLUS ONE Stop: 06/05/21 11:30 Last Infusion: 06/05/21 13:06 Dose: 0 mls/hr Documented by: Admin: 06/05/21 11:23 Dose: 1,000 mls/hr Documented by: MYRANDA Ceftriaxone Sodium 2,000 mg/ (Sodium Chloride) 100 mls @ 200 mls/hr IV NOW ONE Stop: 06/05/21 11:38 Last Infusion: 06/05/21 12:30 Dose: 0 mls/hr Documented by: Admin: 06/05/21 11:54 Dose: 200 mls/hr Documented by: JOSHUA Ceftriaxone Sodium 2,000 mg/ (Sodium Chloride) 100 mls @ 200 mls/hr IV Q24H MAXIMO Last Admin: 06/05/21 15:17 Dose: Not Given Documented by: JULISSA Lidocaine/Sodium Bicarbonate (Lido 1%/Sod Bicarb 8.4% (10ml) 10 Ml Syringe) 10 ml INJ NOW ONE Stop: 06/05/21 10:55 Last Admin: 06/05/21 11:22 Dose: 10 ml Documented by: MYRANDA Vital Signs Vital signs: Vital Signs - 8 hr 06/05/21 12:30 Pulse Rate 102 H Respiratory Rate 21 Pulse Oximetry 97 MDM - Skin/Abscess/Foreign Bdy Lab Data Result diagrams: 06/05/21 10:54 06/05/21 10:54 Labs: Lab Results 06/05/21 06/05/21 06/05/21 Range/Units 10:54 10:54 10:54 WBC 9.5 (4.5-11.0) X10^3/uL RBC 5.07 (4.5-5.9) X10^6/uL Hgb 14.2 (13.5-17.5) g/dL Hct 41.9 (41-53) % MCV 82.6 (80-100) fL MCH 27.9 (26-34) PG MCHC 33.8 (30-36) % RDW 14.8 (11.6-14.8) % Plt Count 233 (150-400) X10^3/uL Neut % (Auto) 84.2 H (50-75) % Lymph % (Auto) 8.9 L (25-40) % [place]arton % (Auto) 6.2 (3-14) % Eos % (Auto) 0.3 L (2-4) % Baso % (Auto) 0.4 (0-2) % Neut # (Auto) 8000 H (5407-3545) /uL Lymph # (Auto) 800 L (4436-0205) /uL [place]arton # (Auto) 600 (0-900) /uL Eos # (Auto) 0 (0-450) /uL Baso # (Auto) 0 (0-100) /uL Sodium 136 L (137-145) mmol/L Potassium 4.3 (3.4-5.1) mmol/L Chloride 104 (98-107) mmol/L Carbon Dioxide 24 (22-32) mmol/L BUN 10 (9-20) mg/dL Creatinine 0.57 L (0.66-1.25) mg/dL Estimated GFR > 60.0 (>60) mL/min BUN/Creatinine Ratio 17.5 (6-22) Glucose 187 H (70-100) mg/dL Lactate 0.9 (0.7-2.1) mmol/L Calcium 9.1 (8.4-10.2) mg/dL Total Bilirubin 0.5 (0.2-1.3) mg/dL AST 29 (17-59) IU/L ALT 39 (<50) IU/L Alkaline Phosphatase 68 (38-126) U/L Total Creatine Kinase (55-170) U/L Total Protein 7.3 (6.3-8.2) g/dL Albumin 3.9 (3.5-5.0) g/dL Globulin 3.4 (1.7-4.1) g/dL Albumin/Globulin Ratio 1.1 (1.0-2.8) Lipase 38 (23-300) U/L Procalcitonin 0.77 H (<0.5) ng/mL SARS-CoV-2 (PCR) (Negative) 06/05/21 06/05/21 Range/Units 10:54 11:16 WBC (4.5-11.0) X10^3/uL RBC (4.5-5.9) X10^6/uL Hgb (13.5-17.5) g/dL Hct (41-53) % MCV (80-100) fL MCH (26-34) PG MCHC (30-36) % RDW (11.6-14.8) % Plt Count (150-400) X10^3/uL Neut % (Auto) (50-75) % Lymph % (Auto) (25-40) % Wharton % (Auto) (3-14) % Eos % (Auto) (2-4) % Baso % (Auto) (0-2) % Neut # (Auto) (4525-5465) /uL Lymph # (Auto) (3633-1277) /uL Wharton # (Auto) (0-900) /uL Eos # (Auto) (0-450) /uL Baso # (Auto) (0-100) /uL Sodium (137-145) mmol/L Potassium (3.4-5.1) mmol/L Chloride (98-107) mmol/L Carbon Dioxide (22-32) mmol/L BUN (9-20) mg/dL Creatinine (0.66-1.25) mg/dL Estimated GFR (>60) mL/min BUN/Creatinine Ratio (6-22) Glucose (70-100) mg/dL Lactate (0.7-2.1) mmol/L Calcium (8.4-10.2) mg/dL Total Bilirubin (0.2-1.3) mg/dL AST (17-59) IU/L ALT (<50) IU/L Alkaline Phosphatase (38-126) U/L Total Creatine Kinase 192 H (55-170) U/L Total Protein (6.3-8.2) g/dL Albumin (3.5-5.0) g/dL Globulin (1.7-4.1) g/dL Albumin/Globulin Ratio (1.0-2.8) Lipase (23-300) U/L Procalcitonin (<0.5) ng/mL SARS-CoV-2 (PCR) Negative (Negative) Point of Care Testing Glucose POC 144 Imaging Data Chest x-ray: Radiologist's Impression: PROCEDURE: XR CHEST 1V INDICATIONS: suspected sepsis TECHNIQUE: One view of the chest was acquired. COMPARISON: [facility], , XR CHEST 1V, 12/26/2018, 15:42. FINDINGS: Surgical changes and devices: None. Lungs and pleura: Lungs are clear. No pleural effusions or pneumothorax. Mediastinum: Mediastinal contours appear normal. Heart size is accentuated by AP technique, but is likely within normal limits. Bones and chest wall: No suspicious bony lesions. Overlying soft tissues appear unremarkable. IMPRESSION: No acute cardiopulmonary abnormality. Dictated by: Willie Hilton M.D. on 06/05/2021 at 9:48 ECG Data Interpretation: Sinus tachycardia rate 116 p.r. interval 142, QRS [address] changes or T-wave inversions MDM Narrative Medical decision making narrative: Patient is afebrile mildly tachycardic no leukocytosis elevated procalcitonin. Probably cellulitis. However patient is so tender away was concerned about come possible compartment syndrome 4 quadrants were anesthetized up the lower leg and pressures were measured anterior 10 mgHg lateral 3mmHg, medial 7mmHg and posterior 1mmHg. None of which are diagnostic of compartment syndrome, more likely a cellulitis. He certainly is not having severe sepsis, hemodynamically stable with some mild tachycardia. Dr. Caraballo in ED to seen evaluate patient have wakes up. Discharge Plan Departure Patient Disposition: Admitted As Inpatient Clinical Impression: Cellulitis of right lower leg Admit Date/Time: 06/05/21 12:48 Admit Provider: Simon Caraballo
--- NOTE | 2021-06-05 13:04 | PC.NURSE ---
Ice packs applied to lower leg for comfort. Dr Gregorio at bedside.
[2021-06-05] MEDS: ACETAMINOPHEN 325 MG TABLET 650 MG PO (13:26)
[2021-06-05] MEDS: IBUPROFEN 600 MG TABLET PO (13:26)
[2021-06-05] MEDS: OXYCODONE IR 5 MG TABLET PO (13:27)
[2021-06-05] MEDS: SODIUM CHLORIDE 0.9% 1,000 ML 125 ML IV ×2 (13:57→21:51)
--- NOTE | 2021-06-05 14:19 | PC.NURSE ---
Assess- Patient admitted to room 211, Blood Sugar 144. Patient states that he is a type 2 diabetic. He is an obese man, and weighs 350 pounds. He has a hx of hypertension and does take blood pressure meds. Patient has cellulitis from below his r.knee down to his r.ankle. Area is outlined in black marking pen. Area red and warm to touch, he has 2+ bilateral edema to lower extremities. Up with minimal assist, patient has voided in the urinal. He is on Normal Saline at 125cc/hr and has had percolone, tylenol, and ibuprofen for pain.
--- NOTE | 2021-06-05 15:19 | P.HP_ITS ---
History of Present Illness History of Present Illness Date Patient Seen: 06/05/21 Time Patient Seen: 13:00 Chief complaint: hurt right leg Narrative: Mr. Domínguez is a 31M with PMH DM, HTN, HL, morbid obesity who comes in with right leg swelling, pain. He had been in his normal state of health until Saturday when he went out boating all day. He was in the sun, got significant sunburns, however he states he legs were not exposed to sun. He also did not swim in the water. He recalls no trauma to his leg, no cuts/scratches. That day he began feeling worse with fevers,chills. He developed progressing right lower leg pain over most of the lower right leg. This was progressed slowly since in area. However, it has become more painful. He has a headache and slight nausea. He has been able to eat, but appetite is decreased. In the ED, vitals were notable for tachycardia, tachypnea, and high blood pressure. Labs notable for WBC of 9.5 with 84% PMNs, creatinine 0.57, procalcitonin 0.77, lactate 0.9, COVID negative. Chest xray negative for any acute process. ED physician did measure four sites on his leg and found pressures of 10 anteriorly, 3 laterally, 7 medially, 1 posteriorly which was inconsistent with compartment syndrome. He was ordered for ceftriaxone and admitted for further treatment. Family history: multiple uncles with CAD, grandfather with CAD Patient History Medical History Diabetes Lumbar strain Morbid obesity Family & Social History Social History: household members significant other Prior Living Arrangements House Safety & Behavioral: Feels Safe in Current Yes Environment Been Physically Hurt or No Threatened By a Person Suicidal Ideation Description None Suicide Plan Description No Plan Tobacco & Substance use: Tobacco type cigarettes,cannabis/marijuana Smoking Status Current every day smoker alcohol intake current alcohol intake frequency a few times a month Substance Use Type marijuana Meds Home Medications and Allergies Home Medications Medication Instructions Recorded Confirmed Type omeprazole 40 mg capsule,delayed 40 mg PO DAILY 12/26/18 06/05/21 History release amlodipine 5 mg tablet (Norvasc) 5 mg PO DAILY 06/05/21 06/05/21 History insulin NPH-reg human insulin 100 28 unit SUBCUT ONCE PM 06/05/21 06/05/21 History unit/mL (70-30) subcutaneous syringe insulin NPH-reg human insulin 100 32 unit SUBCUT QAM 06/05/21 06/05/21 History unit/mL (70-30) subcutaneous syringe lisinopril 10 mg tablet 10 mg PO DAILY 06/05/21 06/05/21 History metformin 1,000 mg tablet 1,000 mg PO BID 06/05/21 06/05/21 History Allergies Allergy/AdvReac Type Severity Reaction Status Date / Time vancomycin Allergy Intermediate Rash Verified 06/05/21 10:30 tramadol [From ULTRAM] Allergy Unknown Verified 06/05/21 10:30 Review of Systems Review of Systems Narrative: 14 systems reviewed and negative aside from what is noted in HPI Exam Vital Signs (past 8 hours): - 06/05/21 10:26 06/05/21 10:42 06/05/21 10:44 Temperature 99.5 F Pulse Rate 116 H 115 H 112 H Respiratory Rate 24 37 H 26 H Blood Pressure 167/98 H 152/72 H Pulse Oximetry 98 97 06/05/21 11:00 06/05/21 11:30 06/05/21 12:00 Temperature Pulse Rate 108 H 106 H 107 H Respiratory Rate 32 H 33 H 28 H Blood Pressure Pulse Oximetry 99 94 98 06/05/21 12:30 06/05/21 13:00 06/05/21 13:20 Temperature 96.8 F L Pulse Rate 102 H 102 H 110 H Respiratory Rate 21 25 H 20 Blood Pressure 144/84 H Pulse Oximetry 97 98 100 Oxygen Delivery Method Room Air Oxygen Flow Rate 0 Narrative Exam Narrative: GEN: mild distress from pain HEENT: moist mucous membranes, PERRL NECK: trachea midline, no JVD CV: tachycardic, no murmurs, rubs, gallops PULM: clear bilaerally, with no wheezes, rhonchi, rales ABD: soft, nontender, nondistended, no organomegaly, normal bowel sounds EXT: warm and well perfused, pedal pulses bilaterally SKIN: Right lower extremity erythematous from knee to ankle, well demarcate primarily anteriorly but also posterior as well, tender and warm to touch, no crepitus or fluctuance noted NEURO: AAOx4, moving all extremities, normal speech PSYCH: pleasant, cooperative Objective Labs Result Diagrams: 06/05/21 10:54 06/05/21 10:54 Labs: Laboratory Results - last 24 hr 06/05/21 06/05/21 06/05/21 10:54 10:54 10:54 WBC 9.5 RBC 5.07 Hgb 14.2 Hct 41.9 MCV 82.6 MCH 27.9 MCHC 33.8 RDW 14.8 Plt Count 233 Neut % (Auto) 84.2 H Lymph % (Auto) 8.9 L [place] % (Auto) 6.2 Eos % (Auto) 0.3 L Baso % (Auto) 0.4 Neut # (Auto) 8000 H Lymph # (Auto) 800 L [place] # (Auto) 600 Eos # (Auto) 0 Baso # (Auto) 0 Sodium 136 L Potassium 4.3 Chloride 104 Carbon Dioxide 24 BUN 10 Creatinine 0.57 L Estimated GFR > 60.0 BUN/Creatinine Ratio 17.5 Glucose 187 H Lactate 0.9 Calcium 9.1 Total Bilirubin 0.5 AST 29 ALT 39 Alkaline Phosphatase 68 Total Protein 7.3 Albumin 3.9 Globulin 3.4 Albumin/Globulin Ratio 1.1 Lipase 38 Procalcitonin 0.77 H SARS-CoV-2 (PCR) 06/05/21 11:16 WBC RBC Hgb Hct MCV MCH MCHC RDW Plt Count Neut % (Auto) Lymph % (Auto) [place] % (Auto) Eos % (Auto) Baso % (Auto) Neut # (Auto) Lymph # (Auto) [place] # (Auto) Eos # (Auto) Baso # (Auto) Sodium Potassium Chloride Carbon Dioxide BUN Creatinine Estimated GFR BUN/Creatinine Ratio Glucose Lactate Calcium Total Bilirubin AST ALT Alkaline Phosphatase Total Protein Albumin Globulin Albumin/Globulin Ratio Lipase Procalcitonin SARS-CoV-2 (PCR) Negative Assessment & Plan Assessment & Plan narrative: Mr. Domínguez is a 31M PMH DM, HTN, HL who comes in with leg pain found to have right leg cellulitis. 1. Acute right leg cellulitis -currently not septic -procalcitonin mildly elevated -no evidence of abscess, no crepitus, area of erythema not spreading rapidly -started on IV ceftriaxone 2gm daily -continue IV fluids -compartment pressures done in ED ranged from 1-10 in the four regions, inconsistent with compartment syndrome 2. Type 2 Diabetes, insulin dependent -continue home dose of insulin -hold metformin -ordered for insulin sliding scale 3. Hypertension -continue lisinopril and amlodipine 4. Hyperlipidemia -per patient not on any medications CODE: Kady, Berenice Neeraj, mother is proxy DIET: Diabetic IVF: Normal saline at 125cc/hr DVT ppx: Lovenox 40u sc Quality VTE Deep Vein Thrombosis/Pulmonary Embolism Present on Admission: No MIPS - Admit I confirm the patient?s Advance Care Plan is present, Code status is documented, Surrogate decision maker is in patient?s record [If Yes, STOP here]: Yes
[2021-06-05 16:07] LABS: Creatine Kinase 192 U/L (55-170)
[2021-06-05] MEDS: INSULIN LISPRO 100 UNIT/ML 3ML VIAL SUBCUT (17:11)
[2021-06-05] MEDS: INSULIN NPH/REG 70-30 100 UNIT/ML 3ML VIAL 28 UNIT SUBCUT (17:14)
[2021-06-05] MEDS: DOCUSATE 100 MG CAPSULE PO (20:56)
[2021-06-06] MEDS: PANTOPRAZOLE DR 40 MG TABLET PO (05:11)
[2021-06-06] MEDS: SODIUM CHLORIDE 0.9% 1,000 ML 125 ML IV (05:12)
[2021-06-06 05:53] LABS: Add Manual Diff / Slide Review NO; Basophils Absolute Auto 0 /uL (0-100); Basophils Percent Auto 0.4 % (0-2); Eosinophils Absolute Auto 100 /uL (0-450); Hematocrit 40.4 % (41-53); Lymphocytes Absolute Auto 1100 /uL (1100-4500); Lymphocytes Percent Auto 16.7 % (25-40); Mean Corpuscular HGB Conc 32.1 % (30-36); Mean Corpuscular Hemoglobin 27.6 PG (26-34); Mean Corpuscular Volume 85.9 fL (80-100); Monocytes Absolute Auto 600 /uL (0-900); Monocytes Percent Auto 8.3 % (3-14); Neutrophils Absolute Auto 5000 /uL (1500-7000); Neutrophils Percent Auto 73.6 % (50-75); Platelet Count 224 X10^3/uL (150-400); Red Blood Cell Count 4.71 X10^6/uL (4.5-5.9); Red Cell Distribution Width 14.9 % (11.6-14.8); White Blood Cell Count 6.7 X10^3/uL (4.5-11.0)
[2021-06-06 05:59] LABS: Blood Urea Nitrogen 11 mg/dL (9-20); Calcium 8.5 mg/dL (8.4-10.2); Carbon Dioxide 27 mmol/L (22-32); Chloride 106 mmol/L (98-107); Estimated Glomerular Filt Rate > 60.0 mL/min (>60); Glucose 154 mg/dL (70-100); HEMOLYSIS < 15 (0-50); Potassium 4.2 mmol/L (3.4-5.1); Sodium 138 mmol/L (137-145)
[2021-06-06 08:06] VITALS: BP 153/98; PULSE 100; RESP 16; TEMP 36.1; O2SAT 97
[2021-06-06] MEDS: INSULIN LISPRO 100 UNIT/ML 3ML VIAL SUBCUT (08:13)
[2021-06-06] MEDS: INSULIN NPH/REG 70-30 100 UNIT/ML 3ML VIAL 32 UNIT SUBCUT (08:13)
[2021-06-06] MEDS: ENOXAPARIN 40 MG/0.4 ML SYRINGE SUBCUT (08:15)
[2021-06-06] MEDS: DOCUSATE 100 MG CAPSULE PO (08:15)
[2021-06-06] MEDS: lisinopriL 10 MG TABLET PO (08:15)
[2021-06-06] MEDS: AMLODIPINE 5 MG TABLET PO (08:15)
--- NOTE | 2021-06-06 09:24 | CM.DANOTE ---
Discharge Planning/Care Management DCP: assessment: case received, EMR reviewed and met with pt right after he saw Dr. Caraballo this morning. Introduced self and role. Pt is a 31 year old male who admitted yesterday to care of hospitalist team. PCP: pt confirms: Dr. Renaldo Tristan Payer: [facility]/Medicaid. Pt confirms the doctor told him he would be able to d/c home today on oral antibiotics and says he is pleased re same. He will drive himself home. CM Discharge Assessment Start: 06/06/21 09:20 Freq: Status: Active Protocol: Document 06/06/21 09:23 ITV (Rec: 06/06/21 09:24 ITV [id number]) Discharge Planning Assessment Advance Directives? No History Provided By Patient,Medical Record Prior Living Arrangements House Household Members significant other Type of transporation used prior to Drives own vehicle admit Independent with ADL's Yes Is patient alert and oriented? Yes Discharge Plan Home Transportation Arrangement will drive self
--- NOTE | 2021-06-06 10:04 | PC.NURSE ---
Patients r.lower leg with some redness and cellulitis. Area is more red on the proximal leg and pink toward his foot. Area is outlined in black marker. Patient will be discharged at 11am, and given an oral dose of antibiotics prior to leaving. He denies pain.
[2021-06-06] MEDS: cephALEXin 250 MG CAPSULE 500 MG PO (10:57)
--- NOTE | 2021-06-06 15:38 | P.DS_ITS ---
History of Present Illness History of Present Illness Chief complaint: hurt right leg Narrative: Mr. Domínguez is a 31M with PMH DM, HTN, HL, morbid obesity who comes in with right leg swelling, pain. He had been in his normal state of health until Saturday when he went out boating all day. He was in the sun, got significant sunburns, however he states he legs were not exposed to sun. He also did not swim in the water. He recalls no trauma to his leg, no cuts/scratches. That day he began feeling worse with fevers,chills. He developed progressing right lower leg pain over most of the lower right leg. This was progressed slowly since in area. However, it has become more painful. He has a headache and slight nausea. He has been able to eat, but appetite is decreased. In the ED, vitals were notable for tachycardia, tachypnea, and high blood pressure. Labs notable for WBC of 9.5 with 84% PMNs, creatinine 0.57, procalcitonin 0.77, lactate 0.9, COVID negative. Chest xray negative for any acute process. ED physician did measure four sites on his leg and found pressures of 10 anteriorly, 3 laterally, 7 medially, 1 posteriorly which was inconsistent with compartment syndrome. He was ordered for ceftriaxone and admitted for further treatment. Family history: multiple uncles with CAD, grandfather with CAD Discharge Providers Provider Date of admission: 06/05/21 12:48 Discharge Date: 06/06/21 Discharge provider: Simon Caraballo MD Summary Hospital Course Discharge Diagnosis: 1. Acute right leg cellulitis 2. Type 2 Diabetes, insulin dependent 3. Hypertension 4. Hyperlipidemia 5. Morbid obesity, BMI 53.2 Hospital Course: Mr. Domínguez was admitted with a right leg cellulitis. He had quite exquisite pain, but remained hemodynamically stable. He had no sepsis. He had compartment pressures measured in his right leg which were normal. He had no crepuitus or fluctuance. He was started on IV ceftriaxone with marked improved. He was discharged with keflex for a plan of one week total of antibiotics. Exam Vital Signs (past 8 hours): - 06/06/21 08:06 Temperature 97.0 F L Pulse Rate 100 H Respiratory Rate 16 Blood Pressure 153/98 H Pulse Oximetry 97 Oxygen Delivery Method Room Air Oxygen Flow Rate 0 Narrative Exam Narrative: GEN: no acute distress HEENT: moist mucous membranes, PERRL NECK: trachea midline, no JVD CV: tachycardic, no murmurs, rubs, gallops PULM: clear bilaerally, with no wheezes, rhonchi, rales ABD: soft, nontender, nondistended, no organomegaly, normal bowel sounds EXT: warm and well perfused, pedal pulses bilaterally SKIN: Right lower extremity erythema markedly improved, decreased swelling, warmth and pain NEURO: AAOx4, moving all extremities, normal speech PSYCH: pleasant, cooperative Objective Labs Result Diagrams: 06/06/21 05:35 06/06/21 05:35 Labs: Laboratory Results - last 24 hr 06/05/21 06/06/21 06/06/21 10:54 05:35 05:35 WBC 6.7 RBC 4.71 Hgb 13.0 L Hct 40.4 L MCV 85.9 D MCH 27.6 MCHC 32.1 RDW 14.9 H Plt Count 224 Neut % (Auto) 73.6 Lymph % (Auto) 16.7 L [place] % (Auto) 8.3 Eos % (Auto) 1.0 L Baso % (Auto) 0.4 Neut # (Auto) 5000 Lymph # (Auto) 1100 [place] # (Auto) 600 Eos # (Auto) 100 Baso # (Auto) 0 Sodium 138 Potassium 4.2 Chloride 106 Carbon Dioxide 27 BUN 11 Creatinine 0.61 L Estimated GFR > 60.0 BUN/Creatinine Ratio 18.0 Glucose 154 H Calcium 8.5 Total Creatine Kinase 192 H PFSH Medical History Diabetes Lumbar strain Morbid obesity Social History marital status: unmarried,living together household members: significant other occupational status: employed Smoking Status: Current every day smoker alcohol intake: current substance use type: marijuana Discharge Plan Discharge Plan Patient Disposition: Home Provider Discharge Comment: Mr. Domínguez came in with right leg pain and was found to have a skin infection (cellulitis). He improved quite quickly with antibiotics. He will need to finish his antibiotic prescription. He can be off work through 06/08. Discharge orders & Medications Prescriptions: New cephalexin 500 mg capsule 500 mg PO QID Qty: 24 RF: 0 Continued metformin 1,000 mg Tablet 1,000 mg PO BID RF: 0 amlodipine [Norvasc] 5 mg Tablet 5 mg PO DAILY RF: 0 lisinopril 10 mg Tablet 10 mg PO DAILY RF: 0 insulin NPH and regular human 100 unit/mL (70-30) Syringe 32 unit SUBCUT QAM RF: 0 insulin NPH and regular human 100 unit/mL (70-30) Syringe 28 unit SUBCUT ONCE PM RF: 0 omeprazole 40 mg Capsule,Delayed Release(Dr/Ec) 40 mg PO DAILY RF: 0 Quality VTE Deep Vein Thrombosis/Pulmonary Embolism Present on Admission: No MIPS - DC The patient has current or prior documentation of left ventricular ejection fraction (LVEF) less than 40%, or moderate or severely depressed left ventricular systolic function.: No
== END 2021-06-06 11:05 | disposition home or self-care (01) ==
LOC: ED 11:25 → AC 12:52
PROVIDERS: Admitting Provider Internal Medicine; Emergency Provider Emergency Medicine; Referring Provider Emergency Medicine; Visit Provider Internal Medicine
DX: L03.115 Cellulitis of right lower limb (principal); E11.9 Type 2 diabetes mellitus without complications; Z79.4 Long term (current) use of insulin; E66.01 Morbid (severe) obesity due to excess calories; Z68.43 Body mass index [BMI] 50.0-59.9, adult; I10 Essential (primary) hypertension; E78.5 Hyperlipidemia, unspecified; F17.210 Nicotine dependence, cigarettes, uncomplicated; Z20.822 Contact with and (suspected) exposure to COVID-19
CPT/HCPCS: 36415; 71045; 80048; 80053; 82550; 82962; 83605; 83690; 84145; 85025; 87040; 87635; 93005; 93010; 96361; 96365; 96372; 96375; 99284; C9803; G0378; J0696; J1170; J1650; J1815

== ENCOUNTER 2021-11-30 15:19 | Emergency (ER) | payer OTHER, MEDICAID, SELFPAY ==
[2021-06-05 13:29] VITALS: BMI 53.1
[2021-11-30 15:31] VITALS: BP 163/70; PULSE 106; RESP 20; TEMP 36.9; O2SAT 97; BMI 54.1
[2021-11-30] MEDS: AMOXICILLIN/CLAV 875/125 MG 1 TAB PO (15:59)
[2021-11-30] MEDS: CLOTRIMAZOLE 1% CRM 30 GM 1 APPLIC TOP (15:59)
[2021-11-30] MEDS: FLUCONAZOLE 150 MG TABLET PO (15:59)
--- NOTE | 2021-11-30 17:22 | ED.MALEGU ---
HPI - Male Genitourinary <ADRIA GranadosP - Last Filed: 11/30/21 17:35> General Chief complaint: Urogenital-Male Stated complaint: Balanitis Time Seen by Provider: 11/30/21 15:33 Source: patient Mode of arrival: Ambulatory History of Present Illness HPI Narrative: 31-year-old male presents to the emergency department complaining of balanitis. Pt has a history of diabetes, obesity, he is uncircumcised and has a history of this happening 2 times prior in the past. He also has a history of a foreskin tear with cellulitis during his last balanitis infection approximately 1.5 years ago. During that infection, he was admitted to the hospital and given vanc and Zosyn for an infection with tear is to his foreskin. Patient reports that it has been about 2 weeks that he has been trying to chavis off the symptoms. He reports that it is very difficult to clean since he is uncircumcised and obese, said is it is very painful at the head of his penis. Patient denies any recent STI exposure, reports that he is in a monogamous relationship without concern for STI. He denies any penile discharge, he does endorse yeast at the head of his penis. He denies any testicular pain. He denies any fever, urinary symptoms, difficulty urinating, or dysuria. Related Data Home Medications Medication Instructions Recorded Confirmed omeprazole 40 mg capsule,delayed 40 mg PO DAILY 12/26/18 06/05/21 release amlodipine 5 mg tablet (Norvasc) 5 mg PO DAILY 06/05/21 06/05/21 insulin NPH-reg human insulin 100 28 unit SUBCUT ONCE PM 06/05/21 06/05/21 unit/mL (70-30) subcutaneous syringe insulin NPH-reg human insulin 100 32 unit SUBCUT QAM 06/05/21 06/05/21 unit/mL (70-30) subcutaneous syringe lisinopril 10 mg tablet 10 mg PO DAILY 06/05/21 06/05/21 metformin 1,000 mg tablet 1,000 mg PO BID 06/05/21 06/05/21 Previous Rx's Medication Instructions Recorded cephalexin 500 mg capsule 500 mg PO QID #24 cap 06/06/21 amoxicillin 875 mg-potassium 1 tab PO BID 5 Days #10 tab 11/30/21 clavulanate 125 mg tablet (Augmentin) clotrimazole 1 % topical cream 1 applic TOPICAL BID 7 Days #30 g 11/30/21 Allergies Allergy/AdvReac Type Severity Reaction Status Date / Time vancomycin Allergy Intermediate Rash Verified 06/05/21 10:30 tramadol [From ULTRAM] Allergy Unknown Verified 06/05/21 10:30 Review of Systems <GEORGE Granados - Last Filed: 11/30/21 17:35> Review of Systems Narrative: General: denies fever, chills Head/Neck: denies headache, neck pain Eyes: denies visual changes, eye pain Cardio: denies chest pain, palpitations Respiratory: denies shortness of breath, cough GI: denies abdominal pain, nausea, vomiting, or diarrhea : denies dysuria, hematuria, endorses penis pain MSK: denies joint pain, muscle weakness Skin: denies rash, itching Neuro: denies numbness, tingling Patient History <GEORGE Granados - Last Filed: 11/30/21 17:35> Medical History Diabetes Lumbar strain Morbid obesity Social History marital status: unmarried,living together household members: significant other occupational status: employed Smoking Status: Current every day smoker alcohol intake: current substance use type: marijuana Smoking Status: Current every day smoker tobacco type: cigarettes alcohol intake frequency: a few times a month Substance Use Type: marijuana Exam <GEORGE Granados - Last Filed: 11/30/21 17:35> Narrative Exam Narrative: Independently reviewed vitals signs and nursing notes. General: Awake, alert, nontoxic, no cardiorespiratory distress Head/Neck: Atraumatic, neck full range of motion Eyes: EOMI, conjunctiva normal Nose: nares patent, no rhinorrhea Mouth/Throat: moist mucus membranes, posterior pharynx normal, no oral lesions Cardio: Regular rate and rhythm, no peripheral edema Respiratory: respirations unlabored without wheezing, stridor, or rales. No retractions. GI: Abdomen soft, nontender MSK: Moves all extremities, neurovascularly intact : Patient's penis is retracted, able to retract the foreskin and obtain a culture of the smegma appears like yeast with a curd like appearance, head of penis is erythematous without penile discharge, area does not appear cellulitic, without edematous scrotum Skin: Normal capillary refill, no rash Neuro: Normal speech and cognition, normal gait Initial Vital Signs Initial Vital Signs: Vital Signs Temperature 98.5 F 11/30/21 15:31 Pulse Rate 106 H 11/30/21 15:31 Respiratory Rate 20 11/30/21 15:31 Blood Pressure 163/70 H 11/30/21 15:31 Pulse Oximetry 97 11/30/21 15:31 <Michaelle Romero DO - Last Filed: 12/01/21 07:32> Initial Vital Signs Initial Vital Signs: Vital Signs Temperature 98.5 F 11/30/21 15:31 Pulse Rate 106 H 11/30/21 15:31 Respiratory Rate 20 11/30/21 15:31 Blood Pressure 163/70 H 11/30/21 15:31 Pulse Oximetry 97 11/30/21 15:31 Course <GEORGE Granados - Last Filed: 11/30/21 17:35> Orders Ordered: Discontinued Medications Amoxicillin/Clavulanate Potassium (Amoxicillin/Clav 875/125 Mg) 1 tab PO NOW ONE Stop: 11/30/21 15:48 Last Admin: 11/30/21 15:59 Dose: 1 tab Documented by: PERLA Clotrimazole (Clotrimazole 1% Vag Crm 45 Gm) 1 applic TOP NOW ONE Stop: 11/30/21 15:46 Clotrimazole (Clotrimazole 1% Crm 30 Gm) 1 applic TOP NOW ONE Stop: 11/30/21 15:50 Last Admin: 11/30/21 15:59 Dose: 1 applic Documented by: PERLA Fluconazole (Fluconazole 150 Mg Tablet) 150 mg PO NOW ONE Stop: 11/30/21 15:51 Last Admin: 11/30/21 15:59 Dose: 150 mg Documented by: PERLA Vital Signs Vital signs: Vital Signs - 8 hr 11/30/21 15:31 Temperature 98.5 F Pulse Rate 106 H Respiratory Rate 20 Blood Pressure 163/70 H Pulse Oximetry 97 <Michaelle Romero DO - Last Filed: 12/01/21 07:32> Orders Ordered: Discontinued Medications Amoxicillin/Clavulanate Potassium (Amoxicillin/Clav 875/125 Mg) 1 tab PO NOW ONE Stop: 11/30/21 15:48 Last Admin: 11/30/21 15:59 Dose: 1 tab Documented by: PERLA Clotrimazole (Clotrimazole 1% Vag Crm 45 Gm) 1 applic TOP NOW ONE Stop: 11/30/21 15:46 Clotrimazole (Clotrimazole 1% Crm 30 Gm) 1 applic TOP NOW ONE Stop: 11/30/21 15:50 Last Admin: 11/30/21 15:59 Dose: 1 applic Documented by: PERLA Fluconazole (Fluconazole 150 Mg Tablet) 150 mg PO NOW ONE Stop: 11/30/21 15:51 Last Admin: 11/30/21 15:59 Dose: 150 mg Documented by: PERLA Vital Signs Vital signs: Vital Signs - 8 hr 11/30/21 15:31 Temperature 98.5 F Pulse Rate 106 H Respiratory Rate 20 Blood Pressure 163/70 H Pulse Oximetry 97 MDM - Male Genitourinary <GEORGE Granados - Last Filed: 11/30/21 17:35> MDM Narrative Medical decision making narrative: 31-year-old male presents to the emergency department for balanitis infection which started approximately 2 weeks ago. Patient has a history of uncircumcised penis, obesity, and diabetes type 2. This is his 3rd episode of balanitis. Culture obtained, appears like yeast with erythematous penis head. Without penile discharge or scrotal edema. Patient reports his blood sugars have been approximately 180 range recently. He is insulin-dependent. Patient reports that he moved recently and has been under lot of stress, he reports that it is difficult to clean his penis due to his body habitus. I prescribed topical clotrimazole, gave him 1 oral fluconazole as this is most likely candidal, and empirically covered him for bacteria with Augmentin. Patient was given information various ways to clean this area, was given clear directions on how to apply the cream and for 1 week to 3 weeks as long as his symptoms persist. He will follow-up with his primary care provider if this does not get better. No new sexual partners or concern for STI. Is appropriate and amenable to discharge home. Vital signs are stable on repeat examination is unremarkable. Patient has been informed of results. Patient has been given strict return to ER precautions for any new or worsening symptoms. Patient understands to follow up closely with outpatient providers as instructed. Patient understands plan and agrees to discharge home. All questions and concerns answered at this time. Discharge Plan Departure Patient Disposition: Home Clinical Impression: Candidal balanitis Activity Restrictions/Additional Instructions: *You have been diagnosed with balanitis most likely candidal with possible bacterial component. Today I gave you an oral antifungal and an oral antibiotic which should clear this up. I have also prescribed a course of antibiotics for you to order picker/assembler and a topical antifungal which show into to use twice a day for at least 1 week and up to 3 weeks. Please clean your penis every day as best as able and apply the antifungal cream morning and night. Please try and keep your blood sugars under tight control during this time. I hope this clears up over the next couple of days. Please return if it is getting worse, you can take ibuprofen or Tylenol as needed for pain. I hope you feel better soon, we will call you if your antibiotic is not sufficient when the culture results. *What to do: *Please continue to take your regular medications as directed. [ x] New medication prescriptions sent to your pharmacy: [[facility] ] [ ] New medication written as a paper prescription [ ] No new medications given *Please follow up with your primary care provider in 2-3 days, call for an appointment. Let them know you were seen in the Emergency Department and that we ask that you be seen in follow up. We will electronically transmit a record of today's note if your PCP is in our system *If you do not have a primary care provider please contact the [facility] Resource line at [phone]. They will ask some questions about your medical history and help get you set up with a doctor in the community. *Return to Emergency Department if you should have any new, worsening or concerning symptoms, such as [fever greater than 101F, chills, worsening pain, persistent vomiting or other bothersome symptoms] What is balanitis? Balanitis is the medical term for when the head of the penis or the clitoris is swollen, sore, or inflamed. This condition most often affects the penis, so this article will focus only on that type. What are the symptoms of balanitis? The symptoms often get worse over 3 to 7 days and can include: ?Pain, tenderness, or itching on the head of the penis (also called the glans) (figure [email or web address]://www.[employer]/contents/image?imageKey=PI%0U12036&topicKey=PI%4A31074&search=balanitis&source=see_link) ?Red sores on the head of the penis or the skin around the head of the penis (also called the foreskin or prepuce) ?Thick, bad-smelling pus on the head of the penis If these symptoms are not treated in a person who is not circumcised, the penis can swell and the foreskin can get stuck to the head of the penis or just below the head of the penis. The foreskin can also form scars. In some cases, balanitis can make it hard to urinate. Should I see a doctor or nurse? Yes. If you have the symptoms described above, see your doctor or nurse right away. Go to the emergency room if you are not circumcised and your foreskin is stuck just below the head of your penis and won't move. This could cause permanent damage (figure [email or web address]://www.[employer]/contents/image?imageKey=PI%1N61164&topicKey=PI%8H11879&search=balanitis&source=see_link). Will I need tests?Probably. Your doctor or nurse will need to find out what might be causing your balanitis. To do that, they will probably: ?Take samples of the fluid from your penis to check for infection ?Order blood tests to check for diabetes or infection How is balanitis treated?Treatment varies depending on the cause of the balanitis: ?If your balanitis is caused by a yeast infection, you will be treated with medicines called antifungals. These medicines come as a cream or gel that you put on your penis, or as pills you take by mouth. Yeast infections most often affect men with diabetes. ?If your balanitis happened because you did not clean your penis well, you will have to rinse your penis twice a day. After your symptoms get better, you will need to begin cleaning yourself better with mild soap and water every day. (But don't use soap while you still have symptoms. Soap can make symptoms worse.) ?If your balanitis is caused by infection with bacteria you will be treated with antibiotic pills. Infections that can cause balanitis include infections you can catch during sex. ?If your balanitis is caused by an allergy or skin reaction to soaps, medicines, or chemicals, you will be treated with steroid creams or ointments. These steroids reduce inflammation and help the skin heal. ?In rare cases, balanitis is a symptom of cancer or a sign that cancer might soon develop. If your balanitis is related to cancer, you will get treated with surgery or cancer medicines. Treatment of balanitis in children is very similar to treatment in adults. Can balanitis be prevented?Yes. You can reduce your chances of getting balanitis by keeping your penis clean. This is especially important if you are not circumcised. After your symptoms are cured, wash your penis every day with soap and water. If you are not circumcised, be sure to pull back the foreskin to clean under it. Then dry the skin there before you put the foreskin back. Keeping your penis clean is important, but it is also possible to go too far. Clean the area gently, with water that is not too hot. Use mild soap, but be careful not to scrub the area too roughly. Prescriptions: New amoxicillin-pot clavulanate [Augmentin] 875-125 mg tablet 1 tab PO BID 5 Days Qty: 10 0RF clotrimazole 1 % cream 1 applic topical BID 7 Days Qty: 30 0RF No Action metformin 1,000 mg Tablet 1,000 mg PO BID 0RF amlodipine [Norvasc] 5 mg Tablet 5 mg PO DAILY 0RF lisinopril 10 mg Tablet 10 mg PO DAILY 0RF insulin NPH and regular human 100 unit/mL (70-30) Syringe 32 unit SUBCUT QAM 0RF insulin NPH and regular human 100 unit/mL (70-30) Syringe 28 unit SUBCUT ONCE PM 0RF cephalexin 500 mg capsule 500 mg PO QID Qty: 24 0RF omeprazole 40 mg Capsule,Delayed Release(Dr/Ec) 40 mg PO DAILY 0RF Referrals: Karl Tristan MD [Primary Care Provider] - <Michaelle Romero DO - Last Filed: 12/01/21 07:32> Cosign ED Attending Cosignature Attestation: I was immediately available in the department for consultation. Documentation has been reviewed.
== END 2021-11-30 16:10 | disposition home or self-care (01) ==
PROVIDERS: Emergency Provider Nurse Practitioner Critical Care Medicine; PCP Internal Medicine
DX: B37.42 Candidal balanitis (principal)
CPT/HCPCS: 87070; 87077; 87147; 87205; 99283

== ENCOUNTER 2022-01-02 16:00 | Emergency (ER) | payer OTHER, MEDICAID, SELFPAY ==
[2021-06-05 13:29] VITALS: BMI 53.1
[2022-01-02 16:17] VITALS: BP 136/67; PULSE 111; RESP 22; TEMP 36.6; O2SAT 99
--- NOTE | 2022-01-02 18:15 | DI.RAD.S_ITS ---
PROCEDURE: XR LUMBAR SPINE 2-3V INDICATIONS: right hip pain TECHNIQUE: Two views of the lumbar spine were acquired. COMPARISON: None. FINDINGS: Bones: 5 [id number] vertebrae are present. There is normal bony alignment. No vertebral body compression fractures. No suspicious bony lesions. Left femur orthopedic hardware is partially imaged. Soft tissues: Overlying bowel gas pattern is normal. No suspicious soft tissue calcifications. IMPRESSION: No acute osseous abnormality. If the symptoms persist, consider cross sectional imaging such as MRI or CT for further assessment. Dictated by: Willie Hilton M.D. on 01/02/2022 at 18:31 Approved by: Willie Hilton M.D. on 01/02/2022 at 18:32
--- NOTE | 2022-01-02 18:16 | ED.EXTPRO ---
HPI - Extremity Problem <Leroy Woods PA-C - Last Filed: 01/02/22 18:41> General Chief complaint: Extremity Problem,Nontraumatic Stated complaint: rt hip pain, states ballanitis Time Seen by Provider: 01/02/22 17:21 Source: patient Mode of arrival: Ambulatory History of Present Illness HPI Narrative: Patient is a 31-year-old male who presents for evaluation of his right hip with pain radiating down to his right knee. He reports this to be a chronic issue this been going on since June of last year pain comes and goes however today it has become increasingly worse that he is now having difficulty walking. He denies any recent trauma or fall he denies any history of back problems and he denies any pain that radiates down past his knee. Related Data Home Medications Medication Instructions Recorded Confirmed omeprazole 40 mg capsule,delayed 40 mg PO DAILY 12/26/18 06/05/21 release amlodipine 5 mg tablet (Norvasc) 5 mg PO DAILY 06/05/21 06/05/21 insulin NPH-reg human insulin 100 28 unit SUBCUT ONCE PM 06/05/21 06/05/21 unit/mL (70-30) subcutaneous syringe insulin NPH-reg human insulin 100 32 unit SUBCUT QAM 06/05/21 06/05/21 unit/mL (70-30) subcutaneous syringe lisinopril 10 mg tablet 10 mg PO DAILY 06/05/21 06/05/21 metformin 1,000 mg tablet 1,000 mg PO BID 06/05/21 06/05/21 Previous Rx's Medication Instructions Recorded cephalexin 500 mg capsule 500 mg PO QID #24 cap 06/06/21 ibuprofen 800 mg tablet 800 mg PO Q8H PRN #21 tab 01/02/22 methylprednisolone 4 mg tablets in See Rx Instructions .ROUTE 01/02/22 a dose pack (Medrol (Mike)) .COMPLEX #21 ea Allergies Allergy/AdvReac Type Severity Reaction Status Date / Time vancomycin Allergy Intermediate Rash Verified 06/05/21 10:30 tramadol [From ULTRAM] Allergy Unknown Verified 06/05/21 10:30 Review of Systems <Leroy Woods PA-C - Last Filed: 01/02/22 18:41> Review of Systems ROS Unobtainable: All systems reviewed & are unremarkable except as noted in HPI and below Constitutional Constitutional: Denies chills, Denies fatigue, Denies fever(s), Denies frequent falls, Denies lethargy and Denies weakness Eyes Eyes: Denies change in vision, Denies eye discharge, Denies irritation and Denies loss of vision ENT Ears, Nose, Mouth, and Throat: Denies change in voice, Denies dizziness, Denies neck pain, Denies sore throat and Denies throat swelling Cardiovascular Cardiovascular: Denies chest pain, Denies irregular heart rhythm, Denies lightheadedness, Denies palpitations, Denies dyspnea, Denies dyspnea on exertion and Denies orthopnea Respiratory Respiratory: Denies cough, Denies dyspnea, Denies dyspnea on exertion and Denies wheezing Gastrointestinal Gastrointestinal: Denies abdominal pain, Denies change in bowel habits, Denies diarrhea, Denies nausea and Denies vomiting Genitourinary Genitourinary: Denies hematuria, Denies flank pain, Denies urinary incontinence and Denies urinary urgency Musculoskeletal Musculoskeletal: Reports system reviewed and no additional complaints, except as documented, Reports as per HPI, Denies back pain, Reports arthralgias, Denies muscle weakness, Denies neck pain, Denies numbness and Denies tingling Integumentary/Breasts Skin/Breast: Denies pruritus, Denies erythema, Denies rash and Denies wounds Neurologic Neurologic: Denies behavioral changes, Denies confusion, Denies dizziness, Denies frequent falls, Denies loss of vision, Denies numbness, Denies tingling and Denies weakness Psychiatric Psychiatric: Denies anxiety, Denies behavioral changes, Denies confusion, Denies depression, Denies homicidal ideation and Denies suicidal ideation Endocrine Endocrine: Denies fatigue, Denies flushing and Denies palpitations Hematologic/Lymphatic Hematologic/Lymphatic: Denies easy bruising Allergic/Immunologic Allergic/Immunologic: Denies urticaria, Denies throat swelling and Denies wheezing Patient History <Leroy Woods PA-C - Last Filed: 01/02/22 18:41> Medical History Diabetes Lumbar strain Morbid obesity Social History marital status: unmarried,living together household members: significant other occupational status: employed Smoking Status: Current every day smoker alcohol intake: current substance use type: marijuana Smoking Status: Current every day smoker tobacco type: cigarettes alcohol intake frequency: a few times a month Substance Use Type: marijuana Exam <TOD Darnell Last Filed: 01/02/22 18:41> Initial Vital Signs Initial Vital Signs: Vital Signs Temperature 97.9 F 01/02/22 16:17 Pulse Rate 111 H 01/02/22 16:17 Respiratory Rate 22 01/02/22 16:17 Blood Pressure 136/67 01/02/22 16:17 Pulse Oximetry 99 01/02/22 16:17 Const General: cooperative and healthy appearing Nutritional Appearance: obese Orientation: Orientation Back/Spine/Pelvis Back: normal to inspection Sacroiliac Joints: nontender Extrem Right lower extremity: normal to inspection, full ROM and hip/thigh Details: tenderness Location: other (IT Band) <DO Salvador Barroso Last Filed: 01/03/22 07:33> Initial Vital Signs Initial Vital Signs: Vital Signs Temperature 97.9 F 01/02/22 16:17 Pulse Rate 111 H 01/02/22 16:17 Respiratory Rate 22 01/02/22 16:17 Blood Pressure 136/67 01/02/22 16:17 Pulse Oximetry 99 01/02/22 16:17 Course <Leroy Woods PA-C - Last Filed: 01/02/22 18:41> Orders Ordered: ED Orders 01/02/22 18:15 XR lumbar spine 2-3V Stat Vital Signs Vital signs: Vital Signs - 8 hr 01/02/22 16:17 Temperature 97.9 F Pulse Rate 111 H Respiratory Rate 22 Blood Pressure 136/67 Pulse Oximetry 99 <DO Salvador Barroso Last Filed: 01/03/22 07:33> Orders Ordered: ED Orders 01/02/22 18:15 XR lumbar spine 2-3V Stat Vital Signs Vital signs: Vital Signs - 8 hr 01/02/22 16:17 Temperature 97.9 F Pulse Rate 111 H Respiratory Rate 22 Blood Pressure 136/67 Pulse Oximetry 99 MDM - Extremity (Nontraumatic) <TOD Darnell Last Filed: 01/02/22 18:41> Differential Diagnosis Differential diagnosis: Likely other MDM Narrative Medical decision making narrative: Patient was evaluated for right sided leg pain radiating from outside hip to the lateral part of the knee. X-rays of lumbar spine were performed which do not show any evidence of any degenerative changes in the upper L-spine the x-rays look adequate. I think it is feasible to treat this patient from an outpatient setting with some anti-inflammatories and steroids and he should follow up with his PCP for ongoing treatment. Discharge Plan Departure Patient Disposition: Home Clinical Impression: Iliotibial band tendinitis of right side Instructions: Iliotibial Band Syndrome Activity Restrictions/Additional Instructions: You were evaluated today for your pain in the right hip radiating down to her right knee. I believe is a combination of steroids and anti-inflammatories would be effective treatment for this condition however if you do not see any improvement over the next week he should follow-up with your PCP for continued evaluation. Prescriptions: New methylprednisolone [Medrol (Mike)] 4 mg tablets,dose pack See Rx Instructions .ROUTE .COMPLEX Qty: 21 0RF Rx Instructions: orally per package directions ibuprofen 800 mg tablet 800 mg PO Q8H PRN (Reason: pain) Qty: 21 0RF No Action metformin 1,000 mg Tablet 1,000 mg PO BID 0RF amlodipine [Norvasc] 5 mg Tablet 5 mg PO DAILY 0RF lisinopril 10 mg Tablet 10 mg PO DAILY 0RF insulin NPH and regular human 100 unit/mL (70-30) Syringe 32 unit SUBCUT QAM 0RF insulin NPH and regular human 100 unit/mL (70-30) Syringe 28 unit SUBCUT ONCE PM 0RF cephalexin 500 mg capsule 500 mg PO QID Qty: 24 0RF omeprazole 40 mg Capsule,Delayed Release(Dr/Ec) 40 mg PO DAILY 0RF Referrals: Karl Tristan MD [Primary Care Provider] - <Quinten Blancas DO - Last Filed: 01/03/22 07:33> Cosign ED Attending Cosignature Attestation: I was immediately available in the department for consultation. This documentation has been reviewed and I agree with assessment and plan. Supervised by Quinten Blancas DO
--- NOTE | 2022-01-02 19:33 | PC.NURSE ---
Pt's azaleaance called to voice complaints that pt had been 'rushed' in and out of the ED and that we had missed a big infection. I explained that pt had been seen by the provider and had been evaluated. She continued to verbalize displeasure with care. I attempted to de-escalate however she continued to raise her voice and I hung up.
== END 2022-01-02 18:46 | disposition home or self-care (01) ==
PROVIDERS: Emergency Provider Physician Assistant; PCP Internal Medicine
DX: M76.821 Posterior tibial tendinitis, right leg (principal)
CPT/HCPCS: 72100; 99281; 99283

== ENCOUNTER 2022-05-16 06:37 | Observation (INO) | payer OTHER, MEDICAID, SELFPAY ==
[2021-06-05 13:29] VITALS: BMI 53.1
[2022-05-16] VITALS (20 sets, daily range): BP systolic 126–151; BP diastolic 60–78; PULSE 97–118; RESP 18–22; TEMP 37.1–38.2; O2SAT 93–100; BMI 53.1
--- NOTE | 2022-05-16 06:48 | DI.US.S_ITS ---
PROCEDURE: US PERIPH VENOUS LOW EXTREM RT INDICATIONS: PAIN, EDEMA, WARMTH TECHNIQUE: Real-time imaging, as well as color and pulse Doppler interrogation, were performed of the lower extremity deep veins from the inguinal ligament to the popliteal fossa. COMPARISON: None. FINDINGS: The common femoral, femoral and popliteal veins are normally compressible, and free of intraluminal thrombus. Color and pulse Doppler demonstrate normal phasic intraluminal flow. There is normal augmentation response to distal compression maneuver. IMPRESSION: No deep venous thrombosis. Dictated by: Ginny Briseno M.D. on 05/16/2022 at 8:57 Approved by: Ginny Briseno M.D. on 05/16/2022 at 9:10
--- NOTE | 2022-05-16 07:14 | ED.EXTPRO ---
HPI - Extremity Problem General Chief complaint: Extremity Problem,Nontraumatic Stated complaint: Sudden severe pain in right leg Time Seen by Provider: 05/16/22 06:48 Source: patient Mode of arrival: Wheelchair History of Present Illness HPI Narrative: Patient is a 32-year-old male history of diabetes, morbid obesity presenting today with sudden onset of severe right leg pain. 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 Woke up this morning around 1:00 a.m. with severe pain unable to bear weight shooting from his hip all the way down to his toe. He denies any injury. He also states that he has been unable to tell when he has to urinate he says that has happened in the last couple of hours. He is currently febrile in the ED with temperature of a 100.7? and tachycardic. He denies any IV drug use. He denies any painful or frequent urination. He has no abdominal pain no nausea or vomiting. No cough chest pain or shortness of breath. There is no abscess or redness on his leg. Related Data Home Medications Medication Instructions Recorded Confirmed omeprazole 40 mg capsule,delayed 40 mg PO DAILY 12/26/18 05/16/22 release amlodipine 5 mg tablet (Norvasc) 5 mg PO DAILY 06/05/21 05/16/22 insulin NPH-reg human insulin 100 40 unit SUBCUT ONCE PM 06/05/21 05/16/22 unit/mL (70-30) subcutaneous syringe insulin NPH-reg human insulin 100 50 unit SUBCUT QAM 06/05/21 05/16/22 unit/mL (70-30) subcutaneous syringe lisinopril 10 mg tablet 10 mg PO DAILY 06/05/21 05/16/22 metformin 1,000 mg tablet 1,000 mg PO BID 06/05/21 05/16/22 Previous Rx's Medication Instructions Recorded cephalexin 500 mg capsule 500 mg PO QID #24 caps 06/06/21 ibuprofen 800 mg tablet 800 mg PO Q8H PRN pain #21 tabs 01/02/22 methylprednisolone 4 mg tablets in See Rx Instructions PO .COMPLEX 01/02/22 a dose pack (Medrol (Mike)) #21 ea Allergies Allergy/AdvReac Type Severity Reaction Status Date / Time vancomycin Allergy Intermediate Rash Verified 06/05/21 10:30 tramadol [From ULTRAM] Allergy Unknown Verified 06/05/21 10:30 Review of Systems Review of Systems Narrative: GENERAL: + fever, see HPI HEENT: Denies sinus pain, ear pain, sore throat, difficulty swallowing, neck pain RESPIRATORY: Denies dyspnea, cough, wheezing, hemoptysis, sputum. CARDIOVASCULAR: Denies chest pain, palpitations, orthopnea, edema GASTROINTESTINAL: Denies nausea, vomiting, abdominal pain, diarrhea, constipation, melena. : Denies dysuria, frequency, incontinence, hematuria, urinary retention, flank pain. MUSCULOSKELETAL: See HPI SKIN: No rash, no erythema, no pruritus NEUROLOGIC: Denies weakness, dizziness, headache, numbness, change in speech, confusion PSYCHIATRIC: No concerning psychosocial issues. 12 point review of systems is negative except for those stated above and HPI Patient History Medical History Diabetes Lumbar strain Morbid obesity Social History marital status: unmarried,living together household members: significant other occupational status: employed Smoking Status: Current every day smoker alcohol intake: current substance use type: marijuana Smoking Status: Current every day smoker tobacco type: cigarettes alcohol intake frequency: a few times a month Substance Use Type: marijuana Exam Initial Vital Signs Initial Vital Signs: Vital Signs Temperature 100.7 F H 05/16/22 06:40 Pulse Rate 118 H 05/16/22 06:40 Respiratory Rate 20 05/16/22 06:40 Blood Pressure 136/69 05/16/22 06:40 Pulse Oximetry 96 05/16/22 06:40 Oxygen Delivery Method 05/16/22 06:40 GENERAL: Alert 32-year-old male, appears in severe pain HEENT: Head atraumatic,EOMI, pupils reactive, face symmetric, moist mucous membranes CARDIOVASCULAR: Regular rate and rhythm without murmurs, rubs or gallops. RESPIRATORY: Breath sounds equal bilaterally, no wheezes rales or rhonchi. ABDOMEN: Soft, nontender. Normoactive bowel sounds all 4 quadrants. No guarding or rebound. EXTREMITIES: Normal range of motion, no clubbing or edema. Neurovascularly intact BACK: Low back pain no is localization or step-off Significant pain moving right leg starting in hip area distal pedal pulse intact no significant swelling NEUROLOGICAL: Alert and oriented x4.Normal gait and speech. SKIN: Warm, dry, no laceration, no petechiae, no rashes or lesions. No erythema no abscess Course Orders Ordered: ED Orders 05/16/22 11:14 UA Complete [Urinalysis and Microscopic] Stat Acetaminophen (Acetaminophen 325 Mg Tablet) 650 mg PO Q4H PRN PRN Reason: Fever/Mild Pain (1-3) Last Admin: 05/16/22 17:03 Dose: 650 mg Documented By: AMY Hydromorphone HCl (Hydromorphone 2 Mg Tablet) 1 mg PO Q4HR PRN PRN Reason: Pain, Severe (7-10) Last Admin: 05/16/22 15:48 Dose: 1 mg Documented By: AMY Ceftriaxone Sodium 2,000 mg/ (Sodium Chloride) 100 mls @ 200 mls/hr IV Q24H MAXIMO Stop: 05/21/22 07:59 Ketorolac Tromethamine (Ketorolac 30 Mg/Ml Vial) 15 mg IV Q6H PRN PRN Reason: pain 4-6 Stop: 05/21/22 15:27 Last Admin: 05/16/22 18:39 Dose: 15 mg Documented By: AMY Discontinued Medications Hydromorphone HCl (Hydromorphone 1 Mg Inj) 1 mg IV NOW ONE Stop: 05/16/22 07:29 Last Admin: 05/16/22 07:40 Dose: 1 mg Documented By: NOMAN Hydromorphone HCl (Hydromorphone 1 Mg Inj) 1 mg IV NOW ONE Stop: 05/16/22 09:47 Last Admin: 05/16/22 10:27 Dose: 1 mg Documented By: NOMAN(2) Hydromorphone HCl (Hydromorphone 1 Mg Inj) 1 mg IV NOW ONE Stop: 05/16/22 10:25 Last Admin: 05/16/22 11:11 Dose: 1 mg Documented By: NOMAN Hydromorphone HCl (Hydromorphone 1 Mg Inj) 1 mg IV NOW ONE Stop: 05/16/22 11:07 Last Admin: 05/16/22 13:10 Dose: Not Given Documented By: AMY Sodium Chloride (Normal Saline 0.9%) 1,000 mls @ 1,000 mls/hr IV BOLUS ONE Stop: 05/16/22 07:47 Last Infusion: 05/16/22 09:14 Dose: 0 mls/hr Documented By: NOMAN(3) Admin: 05/16/22 07:41 Dose: 1,000 mls/hr Documented By: NOMAN Ceftriaxone Sodium 2,000 mg/ (Sodium Chloride) 100 mls @ 200 mls/hr IV NOW ONE Stop: 05/16/22 07:39 Last Infusion: 05/16/22 09:14 Dose: 0 mls/hr Documented By: NOMAN(3) Admin: 05/16/22 07:52 Dose: 200 mls/hr Documented By: NOMAN Sodium Chloride (Normal Saline 0.9%) 1,000 mls @ 1,000 mls/hr IV BOLUS ONE Stop: 05/16/22 09:06 Last Infusion: 05/16/22 11:04 Dose: 0 mls/hr Documented By: Admin: 05/16/22 09:19 Dose: 1,000 mls/hr Documented By: NOMAN Ketorolac Tromethamine (Ketorolac 30 Mg/Ml Vial) 15 mg IV NOW ONE Stop: 05/16/22 06:49 Last Admin: 05/16/22 07:40 Dose: 15 mg Documented By: NOMAN Lorazepam (Lorazepam 2 Mg/Ml Inj) 1 mg IV NOW ONE Stop: 05/16/22 11:07 Last Admin: 05/16/22 11:12 Dose: 1 mg Documented By: NOMAN Vital Signs Vital signs: Vital Signs - 8 hr 05/16/22 11:10 05/16/22 12:13 05/16/22 11:19 Pulse Rate 102 H 100 H Respiratory Rate 18 Blood Pressure 145/76 H 132/60 Pulse Oximetry 97 95 05/16/22 11:30 05/16/22 12:00 Pulse Rate 102 H 101 H Respiratory Rate Blood Pressure 145/76 H Pulse Oximetry 96 98 MDM - Extremity (Nontraumatic) Lab Data Result diagrams: 05/16/22 07:31 05/16/22 07:31 Labs: Lab Results 05/16/22 05/16/22 05/16/22 Range/Units 07:31 07:31 07:31 WBC 17.5 H (4.5-11.0) X10^3/uL RBC 5.28 (4.5-5.9) X10^6/uL Hgb 15.0 (13.5-17.5) g/dL Hct 44.0 (41-53) % MCV 83.3 (80-100) fL MCH 28.3 (26-34) PG MCHC 34.0 (30-36) % RDW 14.4 (11.6-14.8) % Plt Count 277 (150-400) X10^3/uL Neut % (Auto) 90.0 H (50-75) % Lymph % (Auto) 3.9 L (25-40) % [place] % (Auto) 6.0 (3-14) % Eos % (Auto) 0.0 L (2-4) % Baso % (Auto) 0.1 (0-2) % Neut # (Auto) 12918 H (7279-4238) /uL Lymph # (Auto) 700 L (5879-2563) /uL [place] # (Auto) 1100 H (0-900) /uL Eos # (Auto) 0 (0-450) /uL Baso # (Auto) 0 (0-100) /uL ESR (0-15) MM/HR Sodium 134 L (137-145) mmol/L Potassium 4.5 (3.4-5.1) mmol/L Chloride 99 (98-107) mmol/L Carbon Dioxide 26 (22-32) mmol/L BUN 14 (9-20) mg/dL Creatinine 0.60 L (0.66-1.25) mg/dL Estimated GFR > 60 (>60) mL/min BUN/Creatinine Ratio 23.3 H (6-22) Glucose 365 H (70-100) mg/dL Lactate 1.8 (0.7-2.1) mmol/L Calcium 9.3 (8.4-10.2) mg/dL Total Bilirubin 0.4 (0.2-1.3) mg/dL AST 28 (17-59) IU/L ALT 48 (<50) IU/L Alkaline Phosphatase 73 (38-126) U/L C-Reactive Protein 3.8 H (<1.0) mg/dL Total Protein 7.4 (6.3-8.2) g/dL Albumin 4.4 (3.5-5.0) g/dL Globulin 3.0 (1.7-4.1) g/dL Albumin/Globulin Ratio 1.5 (1.0-2.8) Procalcitonin (<0.5) ng/mL Urine Color Urine Appearance Urine pH (4.5-8.0) Ur Specific [place] (1.000-1.035) Urine Protein (Negative) Urine Glucose (UA) (Negative) g/dL Urine Ketones (NEGATIVE) Urine Occult Blood (Negative) Urine Nitrate (Negative) Urine Bilirubin (NEGATIVE) Urine Urobilinogen (0.2) E.U./dL Ur Leukocyte Esterase (NEGATIVE) Urine RBC (0-5/HPF) Urine WBC (0-5/HPF) Ur Squamous Epith Cells (0-5/HPF) Urine Bacteria (None) Ur Culture Indicated? 05/16/22 05/16/22 05/16/22 Range/Units 07:31 07:31 11:14 WBC (4.5-11.0) X10^3/uL RBC (4.5-5.9) X10^6/uL Hgb (13.5-17.5) g/dL Hct (41-53) % MCV (80-100) fL MCH (26-34) PG MCHC (30-36) % RDW (11.6-14.8) % Plt Count (150-400) X10^3/uL Neut % (Auto) (50-75) % Lymph % (Auto) (25-40) % [place] % (Auto) (3-14) % Eos % (Auto) (2-4) % Baso % (Auto) (0-2) % Neut # (Auto) (5211-3831) /uL Lymph # (Auto) (2847-3662) /uL [place] # (Auto) (0-900) /uL Eos # (Auto) (0-450) /uL Baso # (Auto) (0-100) /uL ESR 4 (0-15) MM/HR Sodium (137-145) mmol/L Potassium (3.4-5.1) mmol/L Chloride (98-107) mmol/L Carbon Dioxide (22-32) mmol/L BUN (9-20) mg/dL Creatinine (0.66-1.25) mg/dL Estimated GFR (>60) mL/min BUN/Creatinine Ratio (6-22) Glucose (70-100) mg/dL Lactate (0.7-2.1) mmol/L Calcium (8.4-10.2) mg/dL Total Bilirubin (0.2-1.3) mg/dL AST (17-59) IU/L ALT (<50) IU/L Alkaline Phosphatase (38-126) U/L C-Reactive Protein (<1.0) mg/dL Total Protein (6.3-8.2) g/dL Albumin (3.5-5.0) g/dL Globulin (1.7-4.1) g/dL Albumin/Globulin Ratio (1.0-2.8) Procalcitonin 0.59 H (<0.5) ng/mL Urine Color Yellow Urine Appearance Clear Urine pH 5.5 (4.5-8.0) Ur Specific [place] <=1.005 (1.000-1.035) Urine Protein 1+ H (Negative) Urine Glucose (UA) 2+ H (Negative) g/dL Urine Ketones Trace H (NEGATIVE) Urine Occult Blood Trace-lysed (Negative) Urine Nitrate Negative (Negative) Urine Bilirubin Negative (NEGATIVE) Urine Urobilinogen 0.2 (0.2) E.U./dL Ur Leukocyte Esterase Negative (NEGATIVE) Urine RBC 0-1/hpf (0-5/HPF) Urine WBC 0-1/hpf (0-5/HPF) Ur Squamous Epith Cells 0-1 /hpf (0-5/HPF) Urine Bacteria Occasional (0-1) (None) Ur Culture Indicated? Cult not indicated Point of Care Testing Glucose POC 330 Imaging Data US - DVT: Radiologist's Impression: tient: Maria De Jesus Mireles MR#: [id number] : 12/08/1930 Acct:[id number] Age/Sex: 89 / F Date of Service: 05/16/22 Loc: ED Accession Number: [id number] ?? Procedure: MR abdomen wo/w con Ordering Provider: Quinten Blancas D.O. PROCEDURE:? MR ABDOMEN WO/W CON ? INDICATIONS:? abnormal labs, dilated ducts on CT ? TECHNIQUE:? Coronal HASTE, axial 2D FLASH in- and [id number]; axial breath-hold T2 FSE.? Dynamic axial VIBE during the administration of contrast; post-contrast coronal VIBE or 2D FLASH with fat saturation from the hepatic dome to the iliac crests.? Optional diffusion weighted imaging and ADC may be performed.? ? COMPARISON:? [facility], CT, CT ABDOMEN PELVIS W CON, 05/16/2022, 1:12. ? FINDINGS:? Image quality:? Excellent.? ? Lung bases:? No basal pleural effusions.? Heart size is normal.? ? Solid organs:? Liver/biliary:? Status post cholecystectomy.? The liver has normal signal with no intrahepatic biliary ductal dilatation.? The extrahepatic bile duct is mildly dilated measuring up to 10 mm in diameter.? No obstructing mass or stone is identified. ? Nodes and vessels:? No retroperitoneal or mesenteric adenopathy by size criteria.? Aorta and inferior vena cava are normal in size.? ? Bowel and peritoneum:? There is a moderate-sized hiatal hernia.? There is a small duodenal diverticulum noted adjacent to the ampullary.? No free fluid.? ? Bones and soft tissues:? No ventral hernias.? Bone marrow is normal in overall signal.? ? IMPRESSION:? 1. Biliary ductal dilatation without obstructing stone or mass identified.? This finding is likely due to prior cholecystectomy and age. 2. Moderate-sized hiatal hernia.? ? ? Dictated by: Nadir Cunha M.D. on 05/16/2022 at 16:56 ? ? Approved by: Nadir Cunha M.D. on 05/16/2022 at 17:07 ? CT scan - abdomen/pelvis: Radiologist's Impression: CT Scan Report Signed Patient: Miguel Domínguez MR#: [id number] : 1990 Acct:[id number] Age/Sex: 32 / M Date of Service: 05/16/22 Loc: ED Accession Number: [id number] ?? Procedure: CT abdomen pelvis w con Ordering Provider: Gina Paz D.O. PROCEDURE:? CT ABDOMEN PELVIS W CON ? INDICATIONS:? severe right hip pain with fever ? TECHNIQUE:? After the administration of IV contrast, axial sections were acquired from the lung bases to the pubic symphysis.? Coronal and sagittal reformats were performed.? For radiation dose reduction, the following was used:? automated exposure control, adjustment of mA and/or kV according to patient size. ? COMPARISON:? [facility], CT, CT ABDOMEN PELVIS W CON, 03/01/2019, 16:43. ? FINDINGS:? Image quality:? Excellent.? ? Lung bases:? Unremarkable.? ? Heart:? No significant findings. ? ? ABDOMEN: Liver:? Liver is enlarged measuring 26.9 cm with steatosis.? ? Gallbladder:? Unremarkable.? ? Biliary ducts:? Unremarkable.? ? Pancreas:? Unremarkable.? ? Spleen:? Unremarkable.? ? Adrenal Glands:? Unremarkable.? ? Kidneys and Ureters:? Unremarkable.? ? ? Stomach and Bowel:? Stomach, small bowel loops, and colon are unremarkable.? Peritoneum:? No abnormal intraperitoneal fluid.? No free air.? ? Ventral Wall: ? No hernia.? Abdominal Nodes:? No retroperitoneal or mesenteric adenopathy by size criteria.? Vessels:? Aorta and inferior vena cava are normal in size.? ? PELVIS: Pelvic Organs:? Unremarkable.? ? Bladder:? Unremarkable.? ? Pelvic Nodes: No enlarged lymph nodes.? Miscellaneous: No inguinal hernias are seen. ? ? ? Bones:? Unremarkable.? IMPRESSION:? ? Hepatomegaly with steatosis. ? No visualized right hip abnormality. ? ? Dictated by: Ginny Briseno M.D. on 05/16/2022 at 8:33 ? MR Lumbar: Radiologist's Impression: [address] [place] [address] Magnetic Resonance Report Signed Patient: Miguel Domínguez MR#: [id number] : 1990 Acct:[id number] Age/Sex: 32 / M Date of Service: 05/16/22 Loc: ED Accession Number: [id number] ?? Procedure: MR lumbar spine wo/w con Ordering Provider: Gina Paz D.O. PROCEDURE:? MR LUMBAR SPINE WO/W CON ? INDICATIONS:? fever, severe pain, loss of bladder ? TECHNIQUE:? Noncontrast sagittal T1 spin echo and T2 fast echo, sagittal STIR, and T2 fast spin echo through the lumbar spine.? In cases with scoliosis, additional coronal T2 fast spin echo may be performed.? ? COMPARISON:? [facility], GAIL, XR LUMBAR SPINE 2-3V, 01/02/2022, 18:07. ? FINDINGS:? Image quality:? Excellent.? ? Alignment and Curvature:? There is normal bony alignment.? ? Bone Marrow:? Marrow is of normal overall signal.? No acute vertebral body compression fractures.? ? Spinal Cord:? Conus medullaris terminates at the L1 level.? Visualized cord demonstrates normal signal and size.? ? Paraspinous Soft Tissues:? No paravertebral masses.? ? T12-L1:? Normal appearance.? ? L1-L2:? Normal appearance.? ? L2-L3:? Normal appearance.? ? L3-L4:? Normal appearance.? ? L4-L5:? Disc has a normal appearance.? Mild bilateral facet hypertrophy.? No central stenosis.? Mild bilateral neural foraminal narrowing.? No neural compression. ? L5-S1:? Disc has a normal appearance.? Mild right and moderate left facet hypertrophy.? No central stenosis.? Mild left neural foraminal narrowing.? No neural compression. ? ? IMPRESSION:? ? 1. L4-L5 and L5-S1 facet arthropathy. ? 2. No central stenosis. ? 3. No severe neural foraminal narrowing. ? 4. No neural compression. ? 5. No suspicious postcontrast enhancement.? ? ? Dictated by: Ludy Andrade MD, PhD on 05/16/2022 at 11:36 ? ? MDM Narrative Medical decision making narrative: Patient is a diabetic male with sudden onset of severe right-sided leg pain which time like sciatica however is with loss of urinary control concern for possible epidural abscess. He is febrile here he got leukocytosis elevated inflammatory markers and procalcitonin. No other sign is infection. MRI is fortunately negative. Injuring the patient does have a bacterial infection however I do not source. He has no respiratory symptoms at all. No breathing issues. Biggest complaint is severe pain in his right leg. Possible psoas abscess however CT does not show any abscess or abnormality. Urinalysis is negative. He has no headache or meningeal signs. He is empirically given Rocephin. However he developed hives to vancomycin at this time would out obvious epidural abscess will hold off for MRSA infection in till cultures come back. Patient has low-grade fever, mildly tachycardic with normal blood pressure. He is given IV fluids and Toradol. He has received multiple medications of Dilaudid and Ativan for pain. Dr. De La Torre accepts patient Discharge Plan Departure Patient Disposition: Admitted As Inpatient Clinical Impression: Sepsis Admit Date/Time: 05/16/22 12:13 Admit Provider: Lena Rai
--- NOTE | 2022-05-16 07:24 | DI.MRI.S_ITS ---
PROCEDURE: MR LUMBAR SPINE WO/W CON INDICATIONS: fever, severe pain, loss of bladder TECHNIQUE: Noncontrast sagittal T1 spin echo and T2 fast echo, sagittal STIR, and T2 fast spin echo through the lumbar spine. In cases with scoliosis, additional coronal T2 fast spin echo may be performed. COMPARISON: [facility], CR, XR LUMBAR SPINE 2-3V, 01/02/2022, 18:07. FINDINGS: Image quality: Excellent. Alignment and Curvature: There is normal bony alignment. Bone Marrow: Marrow is of normal overall signal. No acute vertebral body compression fractures. Spinal Cord: Conus medullaris terminates at the L1 level. Visualized cord demonstrates normal signal and size. Paraspinous Soft Tissues: No paravertebral masses. T12-L1: Normal appearance. L1-L2: Normal appearance. L2-L3: Normal appearance. L3-L4: Normal appearance. L4-L5: Disc has a normal appearance. Mild bilateral facet hypertrophy. No central stenosis. Mild bilateral neural foraminal narrowing. No neural compression. L5-S1: Disc has a normal appearance. Mild right and moderate left facet hypertrophy. No central stenosis. Mild left neural foraminal narrowing. No neural compression. IMPRESSION: 1. L4-L5 and L5-S1 facet arthropathy. 2. No central stenosis. 3. No severe neural foraminal narrowing. 4. No neural compression. 5. No suspicious postcontrast enhancement. Dictated by: Ludy Andrade MD, PhD on 05/16/2022 at 11:36 Approved by: Ludy Andrade MD, PhD on 05/16/2022 at 11:39
--- NOTE | 2022-05-16 07:24 | DI.CT.S_ITS ---
PROCEDURE: CT ABDOMEN PELVIS W CON INDICATIONS: severe right hip pain with fever TECHNIQUE: After the administration of IV contrast, axial sections were acquired from the lung bases to the pubic symphysis. Coronal and sagittal reformats were performed. For radiation dose reduction, the following was used: automated exposure control, adjustment of mA and/or kV according to patient size. COMPARISON: [facility], CT, CT ABDOMEN PELVIS W CON, 03/01/2019, 16:43. FINDINGS: Image quality: Excellent. Lung bases: Unremarkable. Heart: No significant findings. ABDOMEN: Liver: Liver is enlarged measuring 26.9 cm with steatosis. Gallbladder: Unremarkable. Biliary ducts: Unremarkable. Pancreas: Unremarkable. Spleen: Unremarkable. Adrenal Glands: Unremarkable. Kidneys and Ureters: Unremarkable. Stomach and Bowel: Stomach, small bowel loops, and colon are unremarkable. Peritoneum: No abnormal intraperitoneal fluid. No free air. Ventral Wall: No hernia. Abdominal Nodes: No retroperitoneal or mesenteric adenopathy by size criteria. Vessels: Aorta and inferior vena cava are normal in size. PELVIS: Pelvic Organs: Unremarkable. Bladder: Unremarkable. Pelvic Nodes: No enlarged lymph nodes. Miscellaneous: No inguinal hernias are seen. Bones: Unremarkable. IMPRESSION: Hepatomegaly with steatosis. No visualized right hip abnormality. Dictated by: Ginny Briseno M.D. on 05/16/2022 at 8:33 Approved by: Ginny Briseno M.D. on 05/16/2022 at 8:57
[2022-05-16] MEDS: HYDROMORPHONE 1 MG INJ IV ×3 (07:40→11:11)
[2022-05-16] MEDS: KETOROLAC 30 MG/ML VIAL 15 MG IV ×2 (07:40→18:39)
[2022-05-16] MEDS: SODIUM CHLORIDE 0.9% 1,000 ML 1000 ML IV ×2 (07:41→09:19)
[2022-05-16 07:46] LABS: Add Manual Diff / Slide Review NO; Basophils Absolute Auto 0 /uL (0-100); Basophils Percent Auto 0.1 % (0-2); Eosinophils Absolute Auto 0 /uL (0-450); Lymphocytes Absolute Auto 700 /uL (1100-4500); Lymphocytes Percent Auto 3.9 % (25-40); Mean Corpuscular Hemoglobin 28.3 PG (26-34); Mean Corpuscular Volume 83.3 fL (80-100); Monocytes Absolute Auto 1100 /uL (0-900); Neutrophils Absolute Auto 15800 /uL (1500-7000); Platelet Count 277 X10^3/uL (150-400); Red Blood Cell Count 5.28 X10^6/uL (4.5-5.9); Red Cell Distribution Width 14.4 % (11.6-14.8); White Blood Cell Count 17.5 X10^3/uL (4.5-11.0)
[2022-05-16] MEDS: cefTRIAXone 2,000 MG in SODIUM CHLORIDE 0.9% 100 ML 200 MG IV (07:52)
[2022-05-16 08:02] LABS: Lactate (Lactic Acid) 1.8 mmol/L (0.7-2.1)
[2022-05-16 08:04] LABS: Alanine Aminotransferase 48 IU/L (<50); Albumin 4.4 g/dL (3.5-5.0); Albumin Globulin Ratio 1.5 (1.0-2.8); Alkaline Phosphatase 73 U/L (38-126); Aspartate Aminotransferase 28 IU/L (17-59); BUN Creatinine Ratio 23.3 (6-22); Bilirubin Total 0.4 mg/dL (0.2-1.3); Blood Urea Nitrogen 14 mg/dL (9-20); C-Reactive Protein Quant 3.8 mg/dL (<1.0); Calcium 9.3 mg/dL (8.4-10.2); Carbon Dioxide 26 mmol/L (22-32); Chloride 99 mmol/L (98-107); Estimated Glomerular Filt Rate > 60 mL/min (>60); Glucose 365 mg/dL (70-100); HEMOLYSIS < 15 (0-50); Potassium 4.5 mmol/L (3.4-5.1); Sodium 134 mmol/L (137-145); Total Protein 7.4 g/dL (6.3-8.2)
[2022-05-16 08:09] LABS: Erythrocyte Sedimentation Rate 4 MM/HR (0-15)
[2022-05-16 08:18] LABS: Procalcitonin 0.59 ng/mL (<0.5)
[2022-05-16] MEDS: LORazepam 2 MG/ML INJ 1 MG IV (11:12)
[2022-05-16 11:45] LABS: Appearance Urine UA CLEAR; Bilirubin Urine UA NEGATIVE (NEGATIVE); Color Urine UA YELLOW; Glucose Urine UA 2+ g/dL (Negative); Ketones Urine UA TRACE (NEGATIVE); Leukocyte Esterase Urine UA NEGATIVE (NEGATIVE); Nitrite Urine UA NEGATIVE (Negative); Occult Blood Urine UA TRACE-LYSED (Negative); Protein Urine UA 1+ (Negative); Specific Gravity Urine UA <=1.005 (1.000-1.035); Urobilinogen Urine UA 0.2 E.U./dL (0.2); pH Urine UA 5.5 (4.5-8.0)
[2022-05-16 11:59] LABS: Bacteria Urine Occasional (0-1); Culture Indicated Urine Cult Not Indicated; RBC Urine 0-1/HPF (0-5/HPF); Squamous Epithelial Cell Urine 0-1 /HPF (0-5/HPF); WBC Urine 0-1/HPF (0-5/HPF)
[2022-05-16 13:17] LABS: COVID19 -Nasal RAPID Negative (Negative)
[2022-05-16] MEDS: HYDROMORPHONE 2 MG TABLET 1 MG PO ×2 (15:48→22:58)
[2022-05-16] MEDS: ACETAMINOPHEN 325 MG TABLET 650 MG PO (17:03)
[2022-05-16] MEDS: LACTATED RINGERS 1,000 ML 60 ML IV (21:00)
[2022-05-16] MEDS: INSULIN LISPRO 100 UNIT/ML 3ML VIAL SUBCUT (21:00)
[2022-05-16 21:43] LABS: NT-proBNP (BNP-Adult 18+) 24 pg/mL (<125)
[2022-05-16 21:48] LABS: Hemoglobin A1C% w Est Avg Glu 11.5 % (4.0-6.0)
[2022-05-16] MEDS: METFORMIN HCL 500 MG TABLET 1000 MG PO (22:50)
[2022-05-16] MEDS: INSULIN NPH/REG 70-30 100 UNIT/ML 3ML VIAL 40 UNIT SUBCUT (23:01)
[2022-05-17] VITALS (7 sets, daily range): BP systolic 133–153; BP diastolic 76–81; PULSE 88–97; RESP 18–20; TEMP 36.5–37.1; O2SAT 95–98
[2022-05-17] MEDS: ACETAMINOPHEN 325 MG TABLET 650 MG PO ×2 (00:48→08:33)
[2022-05-17] MEDS: KETOROLAC 30 MG/ML VIAL 15 MG IV ×2 (00:49→08:33)
--- NOTE | 2022-05-17 03:38 | P.HP_ITS ---
History of Present Illness History of Present Illness Date Patient Seen: 05/16/22 Time Patient Seen: 21:07 Chief complaint: Sudden severe pain in right leg Narrative: Miguel Domínguez is a 31M with PMH DM, HTN, HL, morbid obesity who comes in complaining of acute onset right hip pain, with right leg swelling, pain. 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 Woke up around 1:00 a.m. with severe pain unable to bear weight shooting from his hip radiating to his toe.? He denies any injury.? He also states that he has been unable to tell when he has to urinate, or sense a full bladder and has been incontinent over the day.?In the ED patient presented with a temp of 100.7? and tachycardic.? He denies any IV drug use, painful or frequent urination, no abdominal pain, nausea or vomiting.? No cough, chest pain or shortness of breath. Upon admit patient is diaphoretic continues to be afebrile temp 99.7?, BP 130/69, tachycardic HR 107, slightly tachypneic, R 21, O2 saturation 94 5% on room air, BMI is 53.2. Patient reports that he is having difficulty weight- bearing ambulating. Patient continues with severe right hip and leg pain. Patient suffers from chronic low back pain that is unchanged, noted lumbar paraspinal tenderness. Patient notes that he had a sciffy procedure at 13 years of age with a pin placement in the right hip. Should be noted the patient was also seen on 06/05/2021 and admitted for a right leg cellulitis of unknown etiology. Lower extremity venous ultrasound was negative for DVT. Patient's right leg is erythemic, warm to the touch, painful to light touch, and inflammation noted above the knee down to the ankle. Patient does meet SIRS criteria, with a sofa score of 1. WBC 17.5, neut # 15,800, mono # 1100, sodium 134, glucose 365, lactate WNL, ESR WNL, CRP 3.8, procalcitonin 0.59. 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 Patient's abdomen pelvis CT demonstrated hepatomegaly a with steatosis, right hip demonstrated no abnormal disease. Patient's urine demonstrated positive protein, glucose, ketones, negative for nitrates no culture was ordered. Patient admitted with sepsis, hyponatremia possible right lower leg cellulitis of unknown etiology. Patient History Medical History (Updated 05/17/22 @ 03:55 by NAEEM Salas-DENZEL) Diabetes GERD (gastroesophageal reflux disease) HTN (hypertension) Lumbar strain Morbid obesity Surgical History (Updated 05/17/22 @ 03:55 by NAEEM Salas-) History of hip surgery Family & Social History Family History (Updated 05/17/22 @ 03:56 by NAEEM Salas-) Mother Heart disease Father Heart disease Social History: household members significant other Safety & Behavioral: Feels Safe in Current Yes Environment Been Physically Hurt or No Threatened By a Person Tobacco & Substance use: Tobacco type cigarettes,cannabis/marijuana Smoking Status Current every day smoker alcohol intake current alcohol intake frequency a few times a month Substance Use Type marijuana Meds Home Medications and Allergies Home Medications Medication Instructions Recorded Confirmed Type omeprazole 40 mg capsule,delayed 40 mg PO DAILY 12/26/18 05/16/22 History release amlodipine 5 mg tablet (Norvasc) 5 mg PO DAILY 06/05/21 05/16/22 History insulin NPH-reg human insulin 100 40 unit SUBCUT ONCE PM 06/05/21 05/16/22 History unit/mL (70-30) subcutaneous syringe insulin NPH-reg human insulin 100 50 unit SUBCUT QAM 06/05/21 05/16/22 History unit/mL (70-30) subcutaneous syringe lisinopril 10 mg tablet 10 mg PO DAILY 06/05/21 05/16/22 History metformin 1,000 mg tablet 1,000 mg PO BID 06/05/21 05/16/22 History cephalexin 500 mg capsule 500 mg PO QID #24 caps 06/06/21 05/16/22 Rx ibuprofen 800 mg tablet 800 mg PO Q8H PRN pain #21 tabs 01/02/22 05/16/22 Rx methylprednisolone 4 mg tablets in See Rx Instructions PO .COMPLEX 01/02/22 05/16/22 Rx a dose pack (Medrol (Mike)) #21 ea Allergies Allergy/AdvReac Type Severity Reaction Status Date / Time vancomycin Allergy Intermediate Rash Verified 06/05/21 10:30 tramadol [From ULTRAM] Allergy Unknown Verified 06/05/21 10:30 Review of Systems Review of Systems Narrative: All 12 point systems reviewed with the patient and are negative except otherwise documented. Exam Vital Signs (past 8 hours): - 05/16/22 20:51 05/16/22 23:00 05/17/22 01:00 Temperature 98.8 F 98.8 F Pulse Rate 99 H 95 H Respiratory Rate 22 20 Blood Pressure 151/71 H 150/79 H Pulse Oximetry 96 95 95 Oxygen Delivery Method Nasal Cannula Oxygen Flow Rate 3 0 0 05/17/22 00:51 Temperature Pulse Rate Respiratory Rate Blood Pressure Pulse Oximetry 98 Oxygen Delivery Method Nasal Cannula Oxygen Flow Rate 3 Oxygen Delivery Method Nasal Cannula Oxygen Flow Rate 0 Narrative Exam Narrative: General: Patient is a well-developed, morbidly obese male, in severe pain, diaphoretic, in no acute distress at this time. HEENT: Normocephalic, atraumatic, extraocular muscles intact, oral pharynx is clear and mucous membranes are moist. Neck is supple and symmetric, trachea is midline, no adenopathy, no thyroid enlargement, nontender, no masses palpated. Negative for JVD Chest: Normal AP diameter and contour without kyphoscoliosis, no nasal flaring, retractions, or tachypneic labored Lungs: Auscultation of all lung recio are clear without adventitious sounds, wheezes, rhonchi, or rales. Cardio: regular rate and rhythm without murmur, rubs, or gallops, no carotid bruit, no cardiac pulsations present. Abdomen: Soft nontender, negative for organomegaly, or masses. Bowel sounds are present in all 4 quadrants without guarding or rebound, no CVA tenderness. Musculoskeletal: Right lower extremity erythematous from knee to ankle, well demarcated, tender and warm to touch, painful to light touch, no crepitus or fluctuance noted. No signs of open wounds or injury. No swelling or erythema is noted over the right hip. Skin: Diaphoretic, Warm, and intact without rashes, ulcerations or petechiae- with right lower leg exception. Neuro: Alert and orientated x3, strength is +5/5 in all extremities, sensation to touch intact, no gross deficits noted of cranial nerves. Psych: Patient has a well-kept appearance, appropriate affect, mental status attitude thought context and judgment are appropriate for age. Objective Labs Result Diagrams: 05/16/22 07:31 05/16/22 07:31 Labs: Laboratory Results - last 24 hr 05/16/22 05/16/22 05/16/22 07:31 07:31 07:31 WBC 17.5 H RBC 5.28 Hgb 15.0 Hct 44.0 MCV 83.3 MCH 28.3 MCHC 34.0 RDW 14.4 Plt Count 277 Neut % (Auto) 90.0 H Lymph % (Auto) 3.9 L [place] % (Auto) 6.0 Eos % (Auto) 0.0 L Baso % (Auto) 0.1 Neut # (Auto) 21776 H Lymph # (Auto) 700 L [place] # (Auto) 1100 H Eos # (Auto) 0 Baso # (Auto) 0 ESR Sodium 134 L Potassium 4.5 Chloride 99 Carbon Dioxide 26 BUN 14 Creatinine 0.60 L Estimated GFR > 60 BUN/Creatinine Ratio 23.3 H Glucose 365 H Hemoglobin A1c Lactate 1.8 Calcium 9.3 Total Bilirubin 0.4 AST 28 ALT 48 Alkaline Phosphatase 73 C-Reactive Protein 3.8 H NT-Pro-B Natriuret Pep Total Protein 7.4 Albumin 4.4 Globulin 3.0 Albumin/Globulin Ratio 1.5 Procalcitonin Urine Color Urine Appearance Urine pH Ur Specific [place] Urine Protein Urine Glucose (UA) Urine Ketones Urine Occult Blood Urine Nitrate Urine Bilirubin Urine Urobilinogen Ur Leukocyte Esterase Urine RBC Urine WBC Ur Squamous Epith Cells Urine Bacteria Ur Culture Indicated? SARS-CoV-2 (PCR) 05/16/22 05/16/22 05/16/22 07:31 07:31 07:31 WBC RBC Hgb Hct MCV MCH MCHC RDW Plt Count Neut % (Auto) Lymph % (Auto) [place] % (Auto) Eos % (Auto) Baso % (Auto) Neut # (Auto) Lymph # (Auto) [place] # (Auto) Eos # (Auto) Baso # (Auto) ESR 4 Sodium Potassium Chloride Carbon Dioxide BUN Creatinine Estimated GFR BUN/Creatinine Ratio Glucose Hemoglobin A1c 11.5 H Lactate Calcium Total Bilirubin AST ALT Alkaline Phosphatase C-Reactive Protein NT-Pro-B Natriuret Pep Total Protein Albumin Globulin Albumin/Globulin Ratio Procalcitonin 0.59 H Urine Color Urine Appearance Urine pH Ur Specific [place] Urine Protein Urine Glucose (UA) Urine Ketones Urine Occult Blood Urine Nitrate Urine Bilirubin Urine Urobilinogen Ur Leukocyte Esterase Urine RBC Urine WBC Ur Squamous Epith Cells Urine Bacteria Ur Culture Indicated? SARS-CoV-2 (PCR) 05/16/22 05/16/22 05/16/22 07:31 11:14 12:30 WBC RBC Hgb Hct MCV MCH MCHC RDW Plt Count Neut % (Auto) Lymph % (Auto) [place] % (Auto) Eos % (Auto) Baso % (Auto) Neut # (Auto) Lymph # (Auto) [place] # (Auto) Eos # (Auto) Baso # (Auto) ESR Sodium Potassium Chloride Carbon Dioxide BUN Creatinine Estimated GFR BUN/Creatinine Ratio Glucose Hemoglobin A1c Lactate Calcium Total Bilirubin AST ALT Alkaline Phosphatase C-Reactive Protein NT-Pro-B Natriuret Pep 24 Total Protein Albumin Globulin Albumin/Globulin Ratio Procalcitonin Urine Color Yellow Urine Appearance Clear Urine pH 5.5 Ur Specific [place] <=1.005 Urine Protein 1+ H Urine Glucose (UA) 2+ H Urine Ketones Trace H Urine Occult Blood Trace-lysed Urine Nitrate Negative Urine Bilirubin Negative Urine Urobilinogen 0.2 Ur Leukocyte Esterase Negative Urine RBC 0-1/hpf Urine WBC 0-1/hpf Ur Squamous Epith Cells 0-1 /hpf Urine Bacteria Occasional (0-1) Ur Culture Indicated? Cult not indicated SARS-CoV-2 (PCR) Negative Assessment & Plan Assessment & Plan narrative: Miguel Domínguez is a 31M PMH DM, HTN, HL, morbid obesity who comes in with sepsis, severe right hip and leg pain with right leg cellulitis of unknown etiology. 1.Sepsis secondary to, Acute right leg cellulitis, acute, present on admission -CRP 3.8, procalcitonin 0.59, WBC 17.5, lactate & ESR- WNL, tachycardic HR107, tachypneic RR 21, febrile temp 99.7? -this is the patient's 2nd admit for right lower leg cellulitis from unknown etiology. -blood cultures drawn ED -procalcitonin mildly elevated -no evidence of abscess, no crepitus, area of erythema and inflammation spreading -started on IV ceftriaxone daily -continue IV fluids -Consider weighted T2 MRI for evaluation for epidural abscess, psoas abscess, or subacute infection regarding pin in right hip? -concerns regarding patient's sudden onset of urinary incontinence, inability to since fullness of bladder or need to urinate-rule out spinal injury. 2. Insulin-dependent type 2 diabetes, with hyperglycemia, uncontrolled, acute on chronic, present on admission -patient admitted under diabetic protocols -continue home dose of insulin -hold metformin -ordered for insulin sliding scale 3. Hypertension -continue lisinopril and amlodipine 4. Morbid obesity as evidence by BMI of 54.7, acute on chronic, present on admission -dietary consult ordered 5. GERD, chronic, present on admission -continue patient's omeprazole or equivalency Code status:Full Surrogate decision maker: Judith FrancoGirlfrienmarie KRUGER PCR:Negative DVT/VTE prophylaxis: SCDs on left leg and Lovenox 40mg Disposition: Patient admitted to acute care expected length of stay greater than 3 midnights I have utilized all available immediate resources to obtain, update, or review the patient's current medications. I confirmed that the patient's advanced care plan is present, Code status is documented and/or surrogate decision maker is listed in the patient's medical record. Time Spent With Patient Critical Care time: I spent a total of [] minutes of critical care time on this patient's care today; this time is exclusive of procedural time. Quality VTE Deep Vein Thrombosis/Pulmonary Embolism Present on Admission: No
[2022-05-17] MEDS: cefTRIAXone 1,000 MG in SODIUM CHLORIDE 0.9% 100 ML 200 MG IV (05:47)
[2022-05-17 06:22] LABS: Add Manual Diff / Slide Review NO; Basophils Absolute Auto 0 /uL (0-100); Basophils Percent Auto 0.4 % (0-2); Eosinophils Absolute Auto 100 /uL (0-450); Eosinophils Percent Auto 0.7 % (2-4); Hemoglobin 13.9 g/dL (13.5-17.5); Lymphocytes Absolute Auto 1100 /uL (1100-4500); Lymphocytes Percent Auto 15.2 % (25-40); Mean Corpuscular HGB Conc 33.9 % (30-36); Mean Corpuscular Hemoglobin 28.2 PG (26-34); Mean Corpuscular Volume 83.2 fL (80-100); Monocytes Absolute Auto 600 /uL (0-900); Monocytes Percent Auto 8.9 % (3-14); Neutrophils Absolute Auto 5200 /uL (1500-7000); Neutrophils Percent Auto 74.8 % (50-75); Platelet Count 215 X10^3/uL (150-400); Red Blood Cell Count 4.93 X10^6/uL (4.5-5.9); Red Cell Distribution Width 14.4 % (11.6-14.8)
[2022-05-17 06:52] LABS: INR 1.2 (0.9-1.3); Prothrombin Time 13.4 SECONDS (10.1-12.7)
[2022-05-17 06:54] LABS: PTT Partial Thromboplastin Tim 33 SECONDS (26.4-36.2)
[2022-05-17 06:57] LABS: Alanine Aminotransferase 41 IU/L (<50); Albumin 3.6 g/dL (3.5-5.0); Albumin Globulin Ratio 1.2 (1.0-2.8); Alkaline Phosphatase 61 U/L (38-126); Aspartate Aminotransferase 25 IU/L (17-59); BUN Creatinine Ratio 22.6 (6-22); Bilirubin Total 0.3 mg/dL (0.2-1.3); Blood Urea Nitrogen 14 mg/dL (9-20); Calcium 8.5 mg/dL (8.4-10.2); Carbon Dioxide 29 mmol/L (22-32); Chloride 105 mmol/L (98-107); Estimated Glomerular Filt Rate > 60 mL/min (>60); Globulin 3.1 g/dL (1.7-4.1); Glucose 201 mg/dL (70-100); HEMOLYSIS < 15 (0-50); Magnesium 2.1 mg/dL (1.6-2.3); Potassium 4.1 mmol/L (3.4-5.1); Sodium 138 mmol/L (137-145); Total Protein 6.7 g/dL (6.3-8.2)
[2022-05-17] MEDS: lisinopriL 10 MG TABLET PO (08:32)
[2022-05-17] MEDS: AMLODIPINE 5 MG TABLET PO (08:32)
[2022-05-17] MEDS: PANTOPRAZOLE DR 40 MG TABLET PO (08:32)
[2022-05-17] MEDS: INSULIN LISPRO 100 UNIT/ML 3ML VIAL SUBCUT ×2 (08:34→12:47)
[2022-05-17] MEDS: ENOXAPARIN 40 MG/0.4 ML SYRINGE SUBCUT (08:36)
[2022-05-17] MEDS: INSULIN NPH/REG 70-30 100 UNIT/ML 3ML VIAL 50 UNIT SUBCUT (08:44)
--- NOTE | 2022-05-17 14:02 | P.DS_ITS ---
History of Present Illness History of Present Illness Date Patient Seen: 05/16/22 Time Patient Seen: 21:07 Chief complaint: Sudden severe pain in right leg Narrative: Per admitting provider: Miguel Domínguez is a 31M with PMH DM, HTN, HL, morbid obesity who comes in [facility] of acute onset right hip pain, with right leg swelling, pain. 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 Woke up around 1:00 a.m. with severe pain unable to bear weight shooting from his hip radiating to his toe.? He denies any injury.? He also states that he has been unable to tell when he has to urinate, or sense a full bladder and has been incontinent over the day.?In the ED patient presented with a temp of 100.7? and tachycardic.? He denies any IV drug use, painful or frequent urination, no abdominal pain, nausea or vomiting.? No cough, chest pain or shortness of breath. Upon admit patient is diaphoretic continues to be afebrile temp 99.7?, BP 130/69, tachycardic HR 107, slightly tachypneic, R 21, O2 saturation 94 5% on room air, BMI is 53.2. Patient reports that he is having difficulty weight- bearing ambulating. Patient continues with severe right hip and leg pain. Patient suffers from chronic low back pain that is unchanged, noted lumbar paraspinal tenderness. Patient notes that he had a sciffy procedure at 13 years of age with a pin placement in the right hip. Should be noted the patient was also seen on 06/05/2021 and admitted for a right leg cellulitis of unknown etiology. Lower extremity venous ultrasound was negative for DVT. Patient's right leg is erythemic, warm to the touch, painful to light touch, and inflammation noted above the knee down to the ankle. Patient does meet SIRS criteria, with a sofa score of 1. WBC 17.5, neut # 15,800, mono # 1100, sodium 134, glucose 365, lactate WNL, ESR WNL, CRP 3.8, procalcitonin 0.59. 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 Patient's abdomen pelvis CT demonstrated hepatomegaly a with steatosis, right hip demonstrated no abnormal disease. Patient's urine demonstrated positive protein, glucose, ketones, negative for nitrates no culture was ordered. Patient admitted with sepsis, hyponatremia possible right lower leg cellulitis of unknown etiology. Discharge Providers Provider Date of admission: 05/16/22 12:13 Discharge Date: 05/17/22 Consults: 05/16/22 20:52 Consult to Dietitian, Adult Routine Comment: Reason For Exam: DM uncontrolled morbid obesity Discharge provider: Simon Caraballo MD Summary Hospital Course Discharge Diagnosis: 1. Cellulitis, not septic 2. Type 2 Diabetes, on insulin 3. Hypertension 4. Morbid obesity, BMI 54.7 5. GERD Hospital Course: Mr. Domínguez was admitted with cellulitis. It was initially quite painful, and he had fever and tachycardia. It was confined to his lower leg. Because of the initial severity and some difficulty with urination workup was done to rule out abscess. MRI of lumbar spine was normal. He did have hip pain and CT abdomen/pelvis ruled out and abscess. His initial white count was 17. The next day was improved to 7, and he had no fevers. His cellulitis was reduced in area. He was able to be discharged home and will be given one week of antibiotics and should follow up with PCP within one week. Exam Vital Signs (past 8 hours): - 05/17/22 08:32 05/17/22 09:00 05/17/22 09:00 Temperature 97.7 F Pulse Rate 97 H 97 H Respiratory Rate 20 Blood Pressure 151/76 H 151/76 H Pulse Oximetry 97 96 Oxygen Delivery Method Room Air Oxygen Flow Rate 0 0 05/17/22 13:00 05/17/22 13:00 Temperature 98.7 F Pulse Rate 88 Respiratory Rate 19 Blood Pressure 133/76 Pulse Oximetry 97 97 Oxygen Delivery Method Room Air Oxygen Flow Rate 0 0 Oxygen Delivery Method Room Air Oxygen Flow Rate 0 Narrative Exam Narrative: General: no acute distress Lungs: clear bilaterally Cardio: regular rate and rhythm with no murmurs Musculoskeletal: Right lower extremity erythematous with original line of cellulitis demarcated, and now area of erythema reduced, and pain improved Objective Labs Result Diagrams: 05/17/22 05:23 05/17/22 05:23 Labs: Laboratory Results - last 24 hr 05/16/22 05/16/22 05/17/22 07:31 07:31 05:23 WBC 7.0 D RBC 4.93 Hgb 13.9 Hct 41.0 MCV 83.2 MCH 28.2 MCHC 33.9 RDW 14.4 Plt Count 215 Neut % (Auto) 74.8 Lymph % (Auto) 15.2 L [place] % (Auto) 8.9 Eos % (Auto) 0.7 L Baso % (Auto) 0.4 Neut # (Auto) 5200 Lymph # (Auto) 1100 [place] # (Auto) 600 Eos # (Auto) 100 Baso # (Auto) 0 PT INR APTT Sodium Potassium Chloride Carbon Dioxide BUN Creatinine Estimated GFR BUN/Creatinine Ratio Glucose Hemoglobin A1c 11.5 H Calcium Magnesium Total Bilirubin AST ALT Alkaline Phosphatase NT-Pro-B Natriuret Pep 24 Total Protein Albumin Globulin Albumin/Globulin Ratio 05/17/22 05/17/22 05:23 05:23 WBC RBC Hgb Hct MCV MCH MCHC RDW Plt Count Neut % (Auto) Lymph % (Auto) [place] % (Auto) Eos % (Auto) Baso % (Auto) Neut # (Auto) Lymph # (Auto) [place] # (Auto) Eos # (Auto) Baso # (Auto) PT 13.4 H INR 1.2 APTT 33 Sodium 138 Potassium 4.1 Chloride 105 Carbon Dioxide 29 BUN 14 Creatinine 0.62 L Estimated GFR > 60 BUN/Creatinine Ratio 22.6 H Glucose 201 H D Hemoglobin A1c Calcium 8.5 Magnesium 2.1 Total Bilirubin 0.3 AST 25 ALT 41 Alkaline Phosphatase 61 NT-Pro-B Natriuret Pep Total Protein 6.7 Albumin 3.6 Globulin 3.1 Albumin/Globulin Ratio 1.2 REPLACED BY [facility] Medical History (Updated 05/17/22 @ 03:55 by JEREMIAH Salas) Diabetes GERD (gastroesophageal reflux disease) HTN (hypertension) Lumbar strain Morbid obesity Surgical History (Updated 05/17/22 @ 03:55 by JEREMIAH Salas) History of hip surgery Family History (Updated 05/17/22 @ 03:56 by JEREMIAH Salas) Mother Heart disease Father Heart disease Social History marital status: unmarried,living together household members: significant other occupational status: employed Smoking Status: Current every day smoker alcohol intake: current substance use type: marijuana Discharge Plan Discharge Plan Patient Disposition: Home Provider Discharge Comment: Mr. Domínguez was admitted with a cellulitis (skin infection). He quickly improved with IV antibiotics and was feeling good enough to go home. He was discharged with one week of antibiotics. Discharge orders & Medications Prescriptions: Continued metformin 1,000 mg Tablet 1,000 mg PO BID amlodipine [Norvasc] 5 mg Tablet 5 mg PO DAILY lisinopril 10 mg Tablet 10 mg PO DAILY insulin NPH and regular human 100 unit/mL (70-30) Syringe 50 unit SUBCUT QAM insulin NPH and regular human 100 unit/mL (70-30) Syringe 40 unit SUBCUT ONCE PM ibuprofen 800 mg tablet 800 mg PO Q8H PRN (Reason: pain) Qty: 21 0RF cephalexin 500 mg capsule 500 mg PO QID Qty: 28 0RF omeprazole 40 mg Capsule,Delayed Release(Dr/Ec) 40 mg PO DAILY Discontinued methylprednisolone [Medrol (Mike)] 4 mg tablets,dose pack See Rx Instructions .ROUTE .COMPLEX Qty: 21 0RF Rx Instructions: orally per package directions Diet/Activity/Treatments Diet: Carb-consistent/Diabetic Quality VTE Deep Vein Thrombosis/Pulmonary Embolism Present on Admission: No
--- NOTE | 2022-05-17 14:29 | CM.DANOTE ---
Addendum entered by Tyra Harman R.N. 05/17/22 14:35: Patient has discharge orders this afternoon and to be discharged home. CHERYL Original Note: Initial Discharge Planning Note: Case received. EMR reviewed. Met with patient in room. Introduced self and role. Payer: [facility] HO and Medicaid PCP: He previously had Dr Tristan who retired and will see a new provider 05/30/22. 31 year old obese male admitted yesterday with shooting pain to E. He has been diagnosed with sepsis and RLE cellulitis and treated for. He states he is feeling better and that leg is much less red. Patient lives locally with partner and works as a middle school reading teacher at the [employer]. P: Return to prior living arrangement. CHERYL Discharge Planning/Care Management CM Discharge Assessment Start: 05/17/22 14:25 Freq: Status: Active Protocol: Document 05/17/22 14:25 (Rec: 05/17/22 14:28 [id number]) Discharge Planning Assessment Assigned Nozzle Worker Ling Harman RN/JOSSP Advance Directives? No History Provided By Patient,Medical Record Prior Living Arrangements House Household Members significant other Type of transporation used prior to Drives own vehicle admit Independent with ADL's Yes Is patient alert and oriented? Yes Caregiver for Another No Discharge Plan Home Transportation Arrangement self or partner will transport Referrals Initiated None needed Whiteboard Updated in Patient Room with Yes name and ext. # of Nozzle Worker Review Status In Process
== END 2022-05-17 15:13 | disposition home or self-care (01) | DRG 383 ==
LOC: ED 12:01 → AC 13:31
PROVIDERS: Emergency Medicine; Nurse Practitioner Family; Admitting Provider Neuromusculoskeletal Medicine, Sports Medicine; Emergency Provider Emergency Medicine; Referring Provider Emergency Medicine; Visit Provider Neuromusculoskeletal Medicine, Sports Medicine
DX: L03.115 Cellulitis of right lower limb (principal); E66.01 Morbid (severe) obesity due to excess calories; Z68.43 Body mass index [BMI] 50.0-59.9, adult; E11.65 Type 2 diabetes mellitus with hyperglycemia; I10 Essential (primary) hypertension; K21.9 Gastro-esophageal reflux disease without esophagitis; F17.210 Nicotine dependence, cigarettes, uncomplicated; Z79.84 Long term (current) use of oral hypoglycemic drugs; Z79.4 Long term (current) use of insulin; Z20.822 Contact with and (suspected) exposure to COVID-19
CPT/HCPCS: 36415; 72158; 74177; 80053; 81001; 82962; 83036; 83605; 83735; 83880; 84145; 85025; 85610; 85651; 85730; 86140; 87040; 87635; 93971; 96361; 96365; 96375; 96376; 99284; 99285; C9803; G0378; J0696; J1170; J1650; J1815; J1885; J2060

== ENCOUNTER 2022-06-05 15:20 | Emergency (ER) | payer OTHER, MEDICAID, SELFPAY ==
[2022-05-16 13:28] VITALS: BMI 53.1
[2022-06-05 15:46] VITALS: BP 152/89; PULSE 110; RESP 24; TEMP 36.9; O2SAT 97
[2022-06-05 18:58] VITALS: BP 140/70; PULSE 96; O2SAT 97
[2022-06-05] MEDS: KETOROLAC 30 MG/ML VIAL IM (19:43)
--- NOTE | 2022-06-11 20:33 | ED.MALEGU ---
HPI - Male Genitourinary <Ratna Calderon PA-C - Last Filed: 06/12/22 20:41> General Chief complaint: Urogenital-Male Stated complaint: states severe balanitis Time Seen by Provider: 06/05/22 19:10 Source: patient Mode of arrival: Ambulatory History of Present Illness HPI Narrative: 32-year-old male with past medical history type 2 diabetes on metformin and insulin presents to the ED with penile tip irritation and discharge. Patient endorses a cottage cheese like discharge at the tip of his penis, with the skin very sore and inflamed. Patient endorses significant pain in the area. Patient states that he has a frequent history of balanitis which responds to antifungals. Patient denies fever, chills, chest pain, shortness of breath. Patient denies unprotected sex. Patient denies history of STI. Related Data Home Medications Medication Instructions Recorded Confirmed omeprazole 40 mg capsule,delayed 40 mg PO DAILY 12/26/18 05/16/22 release amlodipine 5 mg tablet (Norvasc) 5 mg PO DAILY 06/05/21 05/16/22 insulin NPH-reg human insulin 100 40 unit SUBCUT ONCE PM 06/05/21 05/16/22 unit/mL (70-30) subcutaneous syringe insulin NPH-reg human insulin 100 50 unit SUBCUT QAM 06/05/21 05/16/22 unit/mL (70-30) subcutaneous syringe lisinopril 10 mg tablet 10 mg PO DAILY 06/05/21 05/16/22 metformin 1,000 mg tablet 1,000 mg PO BID 06/05/21 05/16/22 Previous Rx's Medication Instructions Recorded cephalexin 500 mg capsule 500 mg PO QID #28 caps 05/17/22 ibuprofen 800 mg tablet 800 mg PO Q8H PRN pain #21 tabs 05/17/22 fluconazole 150 mg tablet 150 mg PO Q3D 2 doses #2 tabs 06/05/22 Allergies Allergy/AdvReac Type Severity Reaction Status Date / Time vancomycin Allergy Intermediate Rash Verified 06/05/21 10:30 tramadol [From ULTRAM] Allergy Unknown Verified 06/05/21 10:30 Review of Systems <Ratna Calderon PA-C - Last Filed: 06/12/22 20:41> Review of Systems ROS Unobtainable: All systems reviewed & are unremarkable except as noted in HPI and below Constitutional Constitutional: Denies chills, Denies fatigue, Denies fever(s), Denies frequent falls, Denies lethargy and Denies weakness Eyes Eyes: Denies change in vision, Denies eye discharge, Denies irritation and Denies loss of vision ENT Ears, Nose, Mouth, and Throat: Denies change in voice, Denies dizziness, Denies neck pain, Denies sore throat and Denies throat swelling Cardiovascular Cardiovascular: Denies chest pain, Denies irregular heart rhythm, Denies lightheadedness, Denies palpitations, Denies dyspnea, Denies dyspnea on exertion and Denies orthopnea Respiratory Respiratory: Denies cough, Denies dyspnea, Denies dyspnea on exertion and Denies wheezing Gastrointestinal Gastrointestinal: Denies abdominal pain, Denies change in bowel habits, Denies diarrhea, Denies nausea and Denies vomiting Genitourinary Genitourinary: Denies hematuria, Denies flank pain, Reports penile discharge, Denies urinary incontinence and Denies urinary urgency Musculoskeletal Musculoskeletal: Denies back pain, Denies muscle weakness, Denies neck pain, Denies numbness and Denies tingling Integumentary/Breasts Skin/Breast: Denies pruritus, Denies erythema, Denies rash and Denies wounds Neurologic Neurologic: Denies behavioral changes, Denies confusion, Denies dizziness, Denies frequent falls, Denies loss of vision, Denies numbness, Denies tingling and Denies weakness Psychiatric Psychiatric: Denies anxiety, Denies behavioral changes, Denies confusion, Denies depression, Denies homicidal ideation and Denies suicidal ideation Endocrine Endocrine: Denies fatigue, Denies flushing and Denies palpitations Hematologic/Lymphatic Hematologic/Lymphatic: Denies easy bruising Allergic/Immunologic Allergic/Immunologic: Denies urticaria, Denies throat swelling and Denies wheezing Patient History <Ratna Calderon PA-C - Last Filed: 06/12/22 20:41> Medical History Diabetes GERD (gastroesophageal reflux disease) HTN (hypertension) Lumbar strain Morbid obesity Surgical History History of hip surgery Family History Mother Heart disease Father Heart disease Social History marital status: unmarried,living together household members: significant other occupational status: employed Smoking Status: Current every day smoker alcohol intake: current substance use type: marijuana Smoking Status: Current every day smoker tobacco type: cigarettes alcohol intake frequency: a few times a month Substance Use Type: marijuana Exam <Ratna Calderon PA-C - Last Filed: 06/12/22 20:41> Narrative Exam Narrative: Const General:?cooperative, healthy appearing and comfortable [facility] Head:?normal to inspection Ears:?hearing grossly normal bilaterally Nose:?external nose normal Face and sinus:?normal facial exam and sinuses nontender Mouth:?oral mucosae normal Throat:?posterior oropharynx normal Eyes General:?appearance normal, both eyes and all related structures Neck Neck:?normal visual inspection and no lymphadenopathy noted Resp Effort & Inspection:?normal respiratory effort Auscultation:?clear to auscultation bilaterally Cardio Rate:?regular rate Rhythm:?regular rhythm Genitourinary Cottage cheese like discharge visualized at the tip of the penis, with skin appearing sore and inflamed. No signs of overlying bacterial infection. No sores Neuro General:?patient alert, patient awake and patient oriented x Initial Vital Signs Initial Vital Signs: Vital Signs Temperature 98.4 F 06/05/22 15:46 Pulse Rate 110 H 06/05/22 15:46 Respiratory Rate 24 06/05/22 15:46 Blood Pressure 152/89 H 06/05/22 15:46 Pulse Oximetry 97 06/05/22 15:46 Oxygen Delivery Method 06/05/22 15:46 <Baudilio Middleton MD - Last Filed: 06/24/22 07:02> Initial Vital Signs Initial Vital Signs: Vital Signs Temperature 98.4 F 06/05/22 15:46 Pulse Rate 110 H 06/05/22 15:46 Respiratory Rate 24 06/05/22 15:46 Blood Pressure 152/89 H 06/05/22 15:46 Pulse Oximetry 97 06/05/22 15:46 Oxygen Delivery Method 06/05/22 15:46 Course <Ratna Calderon PA-C - Last Filed: 06/12/22 20:41> Orders Ordered: Discontinued Medications Ketorolac Tromethamine (Ketorolac 30 Mg/Ml Vial) 30 mg IM NOW ONE Stop: 06/05/22 19:35 Last Admin: 06/05/22 19:43 Dose: 30 mg Documented By: RO <Baudilio Middleton MD - Last Filed: 06/24/22 07:02> Orders Ordered: Discontinued Medications Ketorolac Tromethamine (Ketorolac 30 Mg/Ml Vial) 30 mg IM NOW ONE Stop: 06/05/22 19:35 Last Admin: 06/05/22 19:43 Dose: 30 mg Documented By: RO MDM - Male Genitourinary <Ratna Calderon PA-C - Last Filed: 06/12/22 20:41> [facility] Narrative Medical decision making narrative: 32-year-old male with past medical history type 2 diabetes on metformin and insulin presents to the ED with penile tip irritation and discharge. Physical exam consistent with balanitis. Will prescribe fluconazole p.o. ED return precautions discussed with patient. Patient verbalized understanding. Discharge Plan Departure Patient Disposition: Home Clinical Impression: Balanitis Activity Restrictions/Additional Instructions: You were evaluated in the ED today for balanitis. You have been prescribed fluconazole for the yeast infection. You may take 1 pill, take a 2nd pill 3 days later if you still are experiencing symptoms. Please follow-up with your PCP as soon as possible. Return to the ED if your symptoms worsen, you experience fever, chills. Prescriptions: New fluconazole 150 mg tablet 150 mg PO Q3D Qty: 2 0RF Rx Instructions: may repeat second dose 72 hrs after first dose if symptoms persist No Action metformin 1,000 mg Tablet 1,000 mg PO BID amlodipine [Norvasc] 5 mg Tablet 5 mg PO DAILY lisinopril 10 mg Tablet 10 mg PO DAILY insulin NPH and regular human 100 unit/mL (70-30) Syringe 50 unit SUBCUT QAM insulin NPH and regular human 100 unit/mL (70-30) Syringe 40 unit SUBCUT ONCE PM ibuprofen 800 mg tablet 800 mg PO Q8H PRN (Reason: pain) Qty: 21 0RF cephalexin 500 mg capsule 500 mg PO QID Qty: 28 0RF omeprazole 40 mg Capsule,Delayed Release(Dr/Ec) 40 mg PO DAILY Visit Report Forms: Patient Portal/API <Baudilio Middleton MD - Last Filed: 06/24/22 07:02> Cosign ED Attending Cosignature Attestation: I was immediately available for consultation of this patient was seen and evaluated by the APC in the department.
== END 2022-06-05 19:56 | disposition home or self-care (01) ==
PROVIDERS: Emergency Provider Student in an Organized Health Care Education/Training Program
DX: N48.1 Balanitis (principal)
CPT/HCPCS: 96372; 99283; J1885

== ENCOUNTER 2023-03-12 17:15 | Emergency (ER) | payer OTHER, MEDICAID, SELFPAY ==
[2022-05-16 13:28] VITALS: BMI 53.1
[2023-03-12] VITALS (9 sets, daily range): BP systolic 134–170; BP diastolic 70–90; PULSE 93–121; RESP 20; TEMP 37.4; O2SAT 94–98; BMI 50.1
--- NOTE | 2023-03-12 21:00 | ED_ITS ---
HPI - General Adult General Chief complaint: Urogenital-Male Stated complaint: states yeast infection Time Seen by Provider: 03/12/23 20:36 Source: patient Mode of arrival: Ambulatory History of Present Illness HPI narrative: Patient is a 32-year-old male who is here for evaluation of worsening symptoms from his HSV. He states that he recently went to an outside facility for having discomfort in his genital area. He states he was diagnosed with a yeast infection and HSV and also balanitis. He was given a prescription for clotrimazole. He was not given any antivirals. Since that time he states he is had increased discomfort to the point where he is a very difficult time urinating. He denies any fevers. He is never had a HSV infection in the past. No change in bowel issues. Related Data Home Medications Medication Instructions Recorded Confirmed omeprazole 40 mg capsule,delayed 40 mg PO DAILY 12/26/18 05/16/22 release amlodipine 5 mg tablet (Norvasc) 5 mg PO DAILY 06/05/21 05/16/22 insulin NPH-reg human insulin 100 40 unit SUBCUT ONCE PM 06/05/21 05/16/22 unit/mL (70-30) subcutaneous syringe insulin NPH-reg human insulin 100 50 unit SUBCUT QAM 06/05/21 05/16/22 unit/mL (70-30) subcutaneous syringe lisinopril 10 mg tablet 10 mg PO DAILY 06/05/21 05/16/22 metformin 1,000 mg tablet 1,000 mg PO BID 06/05/21 05/16/22 Previous Rx's Medication Instructions Recorded cephalexin 500 mg capsule 500 mg PO QID #28 caps 05/17/22 ibuprofen 800 mg tablet 800 mg PO Q8H PRN pain #21 tabs 05/17/22 fluconazole 150 mg tablet 150 mg PO Q3D 2 doses #2 tabs 06/05/22 acyclovir 400 mg tablet 400 mg PO TID 10 days #30 tabs 03/12/23 lidocaine 5 % topical ointment 1 applic topical QID PRN pain #30 03/12/23 grams Allergies Allergy/AdvReac Type Severity Reaction Status Date / Time vancomycin Allergy Intermediate Rash Verified 03/12/23 17:45 tramadol [From ULTRAM] Allergy Unknown Verified 03/12/23 17:45 Review of Systems Constitutional Constitutional: Reports system reviewed and no additional complaints, except as documented Gastrointestinal Gastrointestinal: Reports system reviewed and no additional complaints, except as documented Genitourinary Genitourinary: Reports system reviewed and no additional complaints, except as documented Integumentary/Breasts Skin/Breast: Reports system reviewed and no additional complaints, except as documented Neurologic Neurologic: Reports system reviewed and no additional complaints, except as documented Hematologic/Lymphatic On Anticoagulants: No Patient History Medical History Diabetes GERD (gastroesophageal reflux disease) HTN (hypertension) Lumbar strain Morbid obesity Surgical History History of hip surgery Family History Mother Heart disease Father Heart disease Social History marital status: unmarried,living together household members: significant other occupational status: employed Smoking Status: Former smoker alcohol intake: current substance use type: marijuana Smoking Status: Former smoker tobacco type: cigarettes alcohol intake frequency: a few times a month Substance Use Type: marijuana Exam Initial Vital Signs Initial Vital Signs: Vital Signs Temperature 99.3 F 03/12/23 17:39 Pulse Rate 121 H 03/12/23 17:39 Respiratory Rate 20 03/12/23 17:39 Blood Pressure 166/80 H 03/12/23 17:39 Pulse Oximetry 96 03/12/23 17:39 Oxygen Delivery Method Room Air 03/12/23 17:39 Const General: cooperative GI Inspection: non-distended Other: Patient is uncircumcised. He does have lesions on the penile shaft and on the glands that are consistent with HSV. They are very difficult to touch. There is no surrounding erythema that would make me concern for cellulitis. His exam is not consistent with phimosis/paraphimosis. Skin Other: Skin changes consistent with HSV. His presentation is not consistent with a yeast infection. Course Orders Ordered: Discontinued Medications Hydrocodone Bitart/Acetaminophen (Hydrocodone/Acet 5/325 Tablet) 1 tab PO NOW ONE Stop: 03/12/23 21:01 Last Admin: 03/12/23 21:35 Dose: 1 tab Documented By: DIANNA Acyclovir (Acyclovir 400 Mg Tablet) 400 mg PO NOW ONE Stop: 03/12/23 21:01 Last Admin: 03/12/23 21:41 Dose: 400 mg Documented By: TERE Lidocaine HCl (Lidocaine 2% (Glydo) 6 Ml Gel) 6 ml TOP NOW ONE Stop: 03/12/23 21:01 Last Admin: 03/12/23 21:35 Dose: 6 ml Documented By: DIANNA Vital Signs Vital signs: Vital Signs - 8 hr 03/12/23 20:31 03/12/23 20:32 03/12/23 20:32 Pulse Rate 97 H 102 H Respiratory Rate 20 Blood Pressure 137/75 Pulse Oximetry 98 97 Oxygen Delivery Method Room Air 03/12/23 21:00 03/12/23 21:00 03/12/23 21:30 Pulse Rate 96 H 94 H Respiratory Rate Blood Pressure 142/89 H Pulse Oximetry 98 94 Oxygen Delivery Method 03/12/23 21:42 03/12/23 22:00 03/12/23 22:52 Pulse Rate 93 H 95 H Respiratory Rate Blood Pressure 134/70 Pulse Oximetry 95 97 Oxygen Delivery Method Room Air 03/12/23 22:53 03/12/23 22:53 Pulse Rate 95 H Respiratory Rate Blood Pressure 170/90 H Pulse Oximetry 95 Oxygen Delivery Method Medical Decision Making MDM Narrative Medical decision making narrative: Patient's presentation today is most consistent with a HSV infection. I have little to no concern for a yeast infection based on his exam. Also not consistent with phimosis/paraphimosis. Patient has had very difficult time urinating because of the discomfort. If Rojas catheter was placed in greater than 1 L of urine resulted. He is afebrile. Unsure why the prior providers diagnosed with HSV and did not start him on acyclovir. He was given a dose of acyclovir here in the ER. An a long discussion with him regarding his symptoms. We discussed the possibility leaving the Rojas catheter in place to when potentially retaining urine again versus removing the catheter here today. Patient states he would like to have the catheter removed. I will prescribe a prescription for the acyclovir. Also provide a prescription for lidocaine jelly. He understands that he may need to return if he can not urinate. He s aid that his most recent sexual partner does know of his outbreak. Will discharge patient home with strict return precautions. He expressed understanding and agreement. Discharge Plan Departure Patient Disposition: Home Clinical Impression: Herpes genitalia, Acute urinary retention Instructions: DI for Genital Herpes Activity Restrictions/Additional Instructions: I do recommend that you take the antiviral medicines as directed. I also recommend you use the lidocaine to help you urinate. It is important that you follow-up with your primary doctor. Return to the emergency department for new or worsening symptoms. Prescriptions: New acyclovir 400 mg tablet 400 mg PO TID 10 Days Qty: 30 0RF lidocaine 5 % ointment 1 applic topical QID PRN (Reason: pain) Qty: 30 2RF No Action metformin 1,000 mg Tablet 1,000 mg PO BID amlodipine [Norvasc] 5 mg Tablet 5 mg PO DAILY lisinopril 10 mg Tablet 10 mg PO DAILY insulin NPH and regular human 100 unit/mL (70-30) Syringe 50 unit SUBCUT QAM insulin NPH and regular human 100 unit/mL (70-30) Syringe 40 unit SUBCUT ONCE PM ibuprofen 800 mg tablet 800 mg PO Q8H PRN (Reason: pain) Qty: 21 0RF cephalexin 500 mg capsule 500 mg PO QID Qty: 28 0RF omeprazole 40 mg Capsule,Delayed Release(Dr/Ec) 40 mg PO DAILY fluconazole 150 mg tablet 150 mg PO Q3D Qty: 2 0RF Rx Instructions: may repeat second dose 72 hrs after first dose if symptoms persist Stand Alone Forms: Patient Portal/API
[2023-03-12] MEDS: HYDROCODONE/ACET 5/325 TABLET 1 TAB PO (21:35)
[2023-03-12] MEDS: LIDOCAINE 2% (GLYDO) 6 ML GEL TOP (21:35)
[2023-03-12] MEDS: ACYCLOVIR 400 MG TABLET PO (21:41)
== END 2023-03-12 22:58 | disposition home or self-care (01) ==
PROVIDERS: Emergency Provider Emergency Medicine
DX: R33.8 Other retention of urine (principal); A60.00 Herpesviral infection of urogenital system, unspecified
CPT/HCPCS: 99283; 99284

== ENCOUNTER 2023-09-18 18:21 | Emergency (ER) | payer OTHER, MEDICAID, SELFPAY ==
[2022-05-16 13:28] VITALS: BMI 53.1
[2023-09-18] VITALS (15 sets, daily range): BP systolic 128–183; BP diastolic 68–95; PULSE 98–120; RESP 18–30; TEMP 36.8–36.9; O2SAT 93–97; BMI 50.1
--- NOTE | 2023-09-18 18:29 | DI.RAD.S_ITS ---
PROCEDURE: XR CHEST 2V INDICATIONS: Eval for pneumonia TECHNIQUE: 2 views of the chest were acquired. COMPARISON: [facility], CR, XR CHEST 1V, 06/05/2021, 10:36. [facility], CR, XR CHEST 1 VIEW, 11/12/2022, 16:21. FINDINGS: Surgical changes and devices: None. Lungs and pleura: An incomplete inspiratory result is noted, causing a crowded appearance to the lung markings. No focal infiltrates are seen. No pneumothorax or significant pleural effusions are seen. Mediastinum: Mediastinal contours are normal. Heart size is normal. Bones and chest wall: No suspicious bony abnormalities. Soft tissues appear unremarkable. IMPRESSION: Low lung volumes, without focal infiltrates. Dictated by: Damian Culp M.D. on 09/18/2023 at 18:09 Approved by: Damian Culp M.D. on 09/18/2023 at 18:09
--- NOTE | 2023-09-18 18:34 | ED.GENADULT ---
HPI - General Adult General Chief complaint: Shortness of Breath/Dyspnea Stated complaint: SOB, Symptoms of pneumonia Time Seen by Provider: 09/18/23 18:29 Source: patient Mode of arrival: Ambulatory History of Present Illness HPI narrative: 33-year-old male. He is an insulin-dependent diabetic. History of hypertension. Is here for evaluation of several days of shortness of breath. Subjective fevers. Is having a cough. It is nonproductive. No underlying lung pathology such as asthma. Has not tried anything for symptoms prior to arrival. Related Data Home Medications Medication Instructions Recorded Confirmed omeprazole 40 mg capsule,delayed 40 mg PO DAILY 12/26/18 05/16/22 release amlodipine 5 mg tablet (Norvasc) 5 mg PO DAILY 06/05/21 05/16/22 insulin NPH-reg human insulin 100 40 unit SUBCUT ONCE PM 06/05/21 05/16/22 unit/mL (70-30) subcutaneous syringe insulin NPH-reg human insulin 100 50 unit SUBCUT QAM 06/05/21 05/16/22 unit/mL (70-30) subcutaneous syringe lisinopril 10 mg tablet 10 mg PO DAILY 06/05/21 05/16/22 metformin 1,000 mg tablet 1,000 mg PO BID 06/05/21 05/16/22 Previous Rx's Medication Instructions Recorded cephalexin 500 mg capsule 500 mg PO QID #28 caps 05/17/22 ibuprofen 800 mg tablet 800 mg PO Q8H PRN pain #21 tabs 05/17/22 fluconazole 150 mg tablet 150 mg PO Q3D 2 doses #2 tabs 06/05/22 lidocaine 5 % topical ointment 1 applic topical QID PRN pain #30 03/12/23 grams prednisone 20 mg tablet 20 mg PO DAILY #6 tabs 09/18/23 Allergies Allergy/AdvReac Type Severity Reaction Status Date / Time vancomycin Allergy Intermediate Rash Verified 03/12/23 17:45 tramadol [From ULTRAM] Allergy Unknown Verified 03/12/23 17:45 Review of Systems Constitutional Constitutional: Reports system reviewed and no additional complaints, except as documented Cardiovascular Cardiovascular: Reports system reviewed and no additional complaints, except as documented Respiratory Respiratory: Reports system reviewed and no additional complaints, except as documented Gastrointestinal Gastrointestinal: Reports system reviewed and no additional complaints, except as documented Integumentary/Breasts Skin/Breast: Reports system reviewed and no additional complaints, except as documented Allergic/Immunologic Allergic/Immunologic: Reports system reviewed and no additional complaints, except as documented Patient History Medical History GERD (gastroesophageal reflux disease) HTN (hypertension) Diabetes Morbid obesity Lumbar strain Surgical History History of hip surgery Family History Mother Heart disease Father Heart disease Social History marital status: unmarried,living together household members: significant other occupational status: employed Smoking Status: Former smoker alcohol intake: current substance use type: marijuana Smoking Status: Former smoker tobacco type: cigarettes alcohol intake frequency: a few times a month Substance Use Type: marijuana Exam Initial Vital Signs Initial Vital Signs: Vital Signs Temperature 98.5 F 09/18/23 18:23 Pulse Rate 120 H 09/18/23 18:23 Respiratory Rate 30 H 09/18/23 18:23 Blood Pressure 147/68 H 09/18/23 18:23 Pulse Oximetry 97 09/18/23 18:23 Oxygen Delivery Method Room Air 09/18/23 18:23 Const General: cooperative and comfortable HENMT Head: normal to inspection and normocephalic Resp Effort & Inspection: not labored, no respiratory distress and tachypneic Auscultation: clear to auscultation bilaterally Cardio Rate: tachycardic Rhythm: regular rhythm GI Inspection: normal to inspection Extrem General: normal to inspection and capillary refill normal Course Orders Ordered: ED Orders 09/18/23 18:29 XR chest 2V Stat 09/18/23 18:32 Covid-19 + FLU A/B + RSV - PCR Stat 09/18/23 20:30 Basic Metabolic Panel Stat Complete Blood Count AUTO DIFF Stat D Dimer Stat Procalcitonin Stat 09/18/23 21:04 CT angio chest PE protocol Stat 09/18/23 21:17 EKG-12 Lead Stat Discontinued Medications Albuterol (Albuterol 2.5 Mg/3 Ml Neb (Adult)) 2.5 mg INH NOW ONE Stop: 09/18/23 20:19 Last Admin: 09/18/23 20:36 Dose: 2.5 mg Documented By: RAHEEM Albuterol (Albuterol Hfa Prepack) 1 box MISC SEEINSTR ONE Stop: 09/18/23 22:44 Last Admin: 09/18/23 22:49 Dose: 1 box Prednisone (Prednisone 20 Mg Tablet) 20 mg PO NOW ONE Stop: 09/18/23 22:44 Last Admin: 09/18/23 22:48 Dose: 20 mg Vital Signs Vital signs: Vital Signs - 8 hr 09/18/23 18:23 09/18/23 18:38 09/18/23 18:56 Temperature 98.5 F Pulse Rate 120 H 119 H Respiratory Rate 30 H Blood Pressure 147/68 H 157/90 H Pulse Oximetry 97 97 Oxygen Delivery Method Room Air 09/18/23 18:56 09/18/23 18:57 09/18/23 19:00 Temperature 98.3 F Pulse Rate 117 H 117 H Respiratory Rate 24 Blood Pressure 149/78 H Pulse Oximetry 96 Oxygen Delivery Method 09/18/23 19:00 09/18/23 19:30 09/18/23 19:30 Temperature Pulse Rate 112 H 107 H Respiratory Rate 18 Blood Pressure 131/82 Pulse Oximetry 94 95 Oxygen Delivery Method 09/18/23 20:00 09/18/23 20:00 09/18/23 20:30 Temperature Pulse Rate 101 H 110 H Respiratory Rate Blood Pressure 128/70 Pulse Oximetry 95 94 Oxygen Delivery Method Room Air 09/18/23 20:33 09/18/23 20:33 09/18/23 20:40 Temperature Pulse Rate 112 H 107 H Respiratory Rate 22 Blood Pressure 183/81 H Pulse Oximetry 95 95 Oxygen Delivery Method Room Air 09/18/23 21:00 09/18/23 21:00 09/18/23 21:38 Temperature Pulse Rate 108 H 107 H Respiratory Rate 18 Blood Pressure 145/78 H Pulse Oximetry 93 96 Oxygen Delivery Method Room Air 09/18/23 22:00 09/18/23 22:30 09/18/23 22:50 Temperature Pulse Rate 100 H 98 H Respiratory Rate 18 Blood Pressure 154/95 H Pulse Oximetry 95 93 Oxygen Delivery Method 09/18/23 22:50 Temperature Pulse Rate 99 H Respiratory Rate Blood Pressure Pulse Oximetry 97 Oxygen Delivery Method Medical Decision Making Lab Data Lab results reviewed: Yes I reviewed the patient's lab results. 09/18/23 20:30 09/18/23 20:30 Labs: Lab Results 09/18/23 09/18/23 Range/Units 18:32 20:30 WBC 9.1 (4.5-11.0) X10^3/uL RBC 5.50 (4.5-5.9) X10^6/uL Hgb 15.8 (13.5-17.5) g/dL Hct 45.6 (41-53) % MCV 82.8 (80-100) fL MCH 28.8 (26-34) PG MCHC 34.7 (30-36) % RDW 14.5 (11.6-14.8) % Plt Count 325 (150-400) X10^3/uL Neut % (Auto) 59.1 (50-75) % Lymph % (Auto) 31.2 (25-40) % Carver % (Auto) 7.3 (3-14) % Eos % (Auto) 1.3 L (2-4) % Baso % (Auto) 1.1 (0-2) % Neut # (Auto) 5400 (2090-3495) /uL Lymph # (Auto) 2800 (7677-2910) /uL Carver # (Auto) 700 (0-900) /uL Eos # (Auto) 100 (0-450) /uL Baso # (Auto) 100 (0-100) /uL D-Dimer 533 H (<500) ng/ml Sodium 134 L (137-145) mmol/L Potassium 4.1 (3.4-5.1) mmol/L Chloride 99 (98-107) mmol/L Carbon Dioxide 27 (22-32) mmol/L BUN 19 (9-20) mg/dL Creatinine 0.48 L (0.66-1.25) mg/dL Estimated GFR > 60 (>60) mL/min BUN/Creatinine Ratio 39.6 H (6-22) Glucose 347 H (70-100) mg/dL Calcium 10.1 (8.4-10.2) mg/dL Procalcitonin 0.07 (<0.5) ng/mL SARS-CoV-2 (PCR) Negative (Negative) Influenza A (RT-PCR) Flu a negative (NEGATIVE) Influenza B (RT-PCR) Flu b negative (NEGATIVE) RSV (PCR) Negative (Negative) Imaging Data Chest x-ray: Radiologist's Impression: PROCEDURE: XR CHEST 2V INDICATIONS: Eval for pneumonia TECHNIQUE: 2 views of the chest were acquired. COMPARISON: [facility], XR CHEST 1V, 06/05/2021, 10:36. [facility], CR, XR CHEST 1 VIEW, 11/12/2022, 16:21. FINDINGS: Surgical changes and devices: None. Lungs and pleura: An incomplete inspiratory result is noted, causing a crowded appearance to the lung markings. No focal infiltrates are seen. No pneumothorax or significant pleural effusions are seen. Mediastinum: Mediastinal contours are normal. Heart size is normal. Bones and chest wall: No suspicious bony abnormalities. Soft tissues appear unremarkable. IMPRESSION: Low lung volumes, without focal infiltrates. CT scan - chest: Radiologist's Impression: PROCEDURE: CT ANGIO CHEST PE PROTOCOL INDICATIONS: Chest pain, shortness of breath, tachycardia TECHNIQUE: After the administration of intravenous contrast, 2 mm thick sections acquired from the pulmonary apices to the posterior costophrenic angles. 3-dimensional maximum intensity projection (MIP) coronal and sagittal reformats were then acquired through the thorax. For radiation dose reduction, the following was used: automated exposure control, adjustment of mA and/or kV according to patient size. COMPARISON: [facility], , XR CHEST 2V, 09/18/2023, 18:43. FINDINGS: Image quality: Suboptimal opacification of central pulmonary arteries. Pulmonary arteries: Pulmonary arteries are normal in size, and demonstrate no intraluminal filling defects to suggest central pulmonary embolism. Lungs and pleura: Lungs are clear. No pleural effusions or pneumothorax. Central and peripheral airways are patent. Mediastinum: Heart size is normal, without pericardial effusion. Mild coronary artery atherosclerosis. No mediastinal or hilar adenopathy. Thoracic aorta is normal in caliber and enhancement. Esophagus is normal in caliber, without hiatal hernia. Bones and chest wall: No suspicious bony lesions. Ribs and thoracic spine appear intact throughout. Visualized thyroid gland is normal. No axillary or supraclavicular adenopathy. Abdomen: There is hepatic steatosis. Visualized upper abdominal solid organs appear normal in the early arterial phase of enhancement. IMPRESSION: 1. Suboptimal examination due to inadequate opacification of central pulmonary arteries. No definitive central pulmonary emboli. 2. Mild coronary artery atherosclerosis. 3. No acute pulmonary opacity or pleural effusion. ECG Data Attestation: I personally reviewed and interpreted this ECG as follows: Interpretation: Sinus rhythm Ventricular rate 99 Normal axis Normal QRS Normal QTC No ST T wave changes MDM Narrative Medical decision making narrative: During my initial evaluation the patient did not have any wheezing but he did develop some while he was here. He was given a albuterol which he states improved his symptoms tremendously. His chest x-ray was negative. His COVID and flu were negative. Given his tachycardia and his respiratory symptoms labs were obtained. D-dimer is elevated. CT scan of the chest shows no indication of PE or pneumonia. There was no indication for antibiotics. He did state that he felt better the nebulizer so will send home with a prescription for this and steroids. He was given return precautions. He expressed understanding and agreement. Discharge Plan Departure Patient Disposition: Home Clinical Impression: Bronchitis Instructions: Acute Bronchitis Activity Restrictions/Additional Instructions: I do recommend that you take the steroids on a daily basis like we discussed. [facility] Use the albuterol inhaler as needed. Return to the emergency department for new or worsening symptoms. Prescriptions: New prednisone 20 mg tablet 20 mg PO DAILY Qty: 6 0RF No Action metformin 1,000 mg Tablet 1,000 mg PO BID amlodipine [Norvasc] 5 mg Tablet 5 mg PO DAILY lisinopril 10 mg Tablet 10 mg PO DAILY insulin NPH and regular human 100 unit/mL (70-30) Syringe 50 unit SUBCUT QAM insulin NPH and regular human 100 unit/mL (70-30) Syringe 40 unit SUBCUT ONCE PM ibuprofen 800 mg tablet 800 mg PO Q8H PRN (Reason: pain) Qty: 21 0RF cephalexin 500 mg capsule 500 mg PO QID Qty: 28 0RF lidocaine 5 % ointment 1 applic topical QID PRN (Reason: pain) Qty: 30 2RF omeprazole 40 mg Capsule,Delayed Release(Dr/Ec) 40 mg PO DAILY fluconazole 150 mg tablet 150 mg PO Q3D Qty: 2 0RF Rx Instructions: may repeat second dose 72 hrs after first dose if symptoms persist Stand Alone Forms: Patient Portal/API
[2023-09-18 20:07] LABS: Influenza A - CEPHEID Flu A NEGATIVE (NEGATIVE); Influenza B - CEPHEID Flu B NEGATIVE (NEGATIVE); Respiratory Syncytial Virus Negative (Negative)
[2023-09-18 20:13] LABS: COVID-19 CEPHEID 4-PLEX PCR Negative (Negative)
[2023-09-18] MEDS: ALBUTEROL 2.5 MG/3 ML NEB (ADULT) INH (20:36)
[2023-09-18 20:49] LABS: BUN Creatinine Ratio 39.6 (6-22); Blood Urea Nitrogen 19 mg/dL (9-20); Calcium 10.1 mg/dL (8.4-10.2); Carbon Dioxide 27 mmol/L (22-32); Chloride 99 mmol/L (98-107); Estimated Glomerular Filt Rate > 60 mL/min (>60); Glucose 347 mg/dL (70-100); HEMOLYSIS < 15 (0-50); Potassium 4.1 mmol/L (3.4-5.1); Sodium 134 mmol/L (137-145)
[2023-09-18 20:57] LABS: D Dimer 533 ng/ml (<500)
[2023-09-18 21:00] LABS: Add Manual Diff / Slide Review NO; Basophils Absolute Auto 100 /uL (0-100); Basophils Percent Auto 1.1 % (0-2); Eosinophils Absolute Auto 100 /uL (0-450); Eosinophils Percent Auto 1.3 % (2-4); Hematocrit 45.6 % (41-53); Hemoglobin 15.8 g/dL (13.5-17.5); Lymphocytes Absolute Auto 2800 /uL (1100-4500); Lymphocytes Percent Auto 31.2 % (25-40); Mean Corpuscular HGB Conc 34.7 % (30-36); Mean Corpuscular Hemoglobin 28.8 PG (26-34); Mean Corpuscular Volume 82.8 fL (80-100); Monocytes Absolute Auto 700 /uL (0-900); Monocytes Percent Auto 7.3 % (3-14); Neutrophils Absolute Auto 5400 /uL (1500-7000); Neutrophils Percent Auto 59.1 % (50-75); Platelet Count 325 X10^3/uL (150-400); Red Cell Distribution Width 14.5 % (11.6-14.8); White Blood Cell Count 9.1 X10^3/uL (4.5-11.0)
--- NOTE | 2023-09-18 21:04 | DI.CT.S_ITS ---
PROCEDURE: CT ANGIO CHEST PE PROTOCOL INDICATIONS: Chest pain, shortness of breath, tachycardia TECHNIQUE: After the administration of intravenous contrast, 2 mm thick sections acquired from the pulmonary apices to the posterior costophrenic angles. 3-dimensional maximum intensity projection (MIP) coronal and sagittal reformats were then acquired through the thorax. For radiation dose reduction, the following was used: automated exposure control, adjustment of mA and/or kV according to patient size. COMPARISON: [facility], CR, XR CHEST 2V, 09/18/2023, 18:43. FINDINGS: Image quality: Suboptimal opacification of central pulmonary arteries. Pulmonary arteries: Pulmonary arteries are normal in size, and demonstrate no intraluminal filling defects to suggest central pulmonary embolism. Lungs and pleura: Lungs are clear. No pleural effusions or pneumothorax. Central and peripheral airways are patent. Mediastinum: Heart size is normal, without pericardial effusion. Mild coronary artery atherosclerosis. No mediastinal or hilar adenopathy. Thoracic aorta is normal in caliber and enhancement. Esophagus is normal in caliber, without hiatal hernia. Bones and chest wall: No suspicious bony lesions. Ribs and thoracic spine appear intact throughout. Visualized thyroid gland is normal. No axillary or supraclavicular adenopathy. Abdomen: There is hepatic steatosis. Visualized upper abdominal solid organs appear normal in the early arterial phase of enhancement. IMPRESSION: 1. Suboptimal examination due to inadequate opacification of central pulmonary arteries. No definitive central pulmonary emboli. 2. Mild coronary artery atherosclerosis. 3. No acute pulmonary opacity or pleural effusion. Dictated by: Mi Ribera M.D. on 09/18/2023 at 22:24 Approved by: Mi Ribera M.D. on 09/18/2023 at 22:29
[2023-09-18 21:07] LABS: Procalcitonin 0.07 ng/mL (<0.5)
[2023-09-18] MEDS: predniSONE 20 MG TABLET PO (22:48)
[2023-09-18] MEDS: ALBUTEROL HFA PREPACK 1 BOX MISC (22:49)
== END 2023-09-18 22:58 | disposition home or self-care (01) ==
PROVIDERS: Emergency Provider Emergency Medicine
DX: J40 Bronchitis, not specified as acute or chronic (principal); R00.0 Tachycardia, unspecified; R07.9 Chest pain, unspecified; Z20.822 Contact with and (suspected) exposure to COVID-19
CPT/HCPCS: 0241U; 36415; 71046; 71275; 80048; 84145; 85025; 85379; 93005; 94640; 99284; J7613; Q9967

== ENCOUNTER 2023-10-21 21:36 | Observation (INO) | payer OTHER, MEDICAID, SELFPAY ==
[2022-05-16 13:28] VITALS: BMI 53.1
[2023-10-21] VITALS (8 sets, daily range): BP systolic 127–157; BP diastolic 58–98; PULSE 134–142; RESP 20–33; TEMP 38.4; O2SAT 87–95; BMI 58.7
--- NOTE | 2023-10-21 21:44 | DI.RAD.S_ITS ---
PROCEDURE: XR CHEST 1V INDICATIONS: suspected sepsis TECHNIQUE: One view of the chest was acquired. COMPARISON: [facility], CT, CT ANGIO CHEST PE PROTOCOL, 09/18/2023, 21:17. [facility], CR, XR CHEST 1V, 12/26/2018, 15:42. FINDINGS: Surgical changes and devices: None. Lungs and pleura: Lungs are clear. No pleural effusions or pneumothorax. Mediastinum: Cardiac silhouette appears mildly enlarged, but may be exaggerated by portable technique and incomplete inspiration. Prominent epicardial fat is noted on prior CT from 09/18/2023 and likely accounts for the radiographic appearance. Bones and chest wall: No suspicious bony lesions. Overlying soft tissues appear unremarkable. IMPRESSION: No acute cardiopulmonary abnormality identified. Approved by: Willie Hilton M.D. on 10/21/2023 at 23:50
[2023-10-21] MEDS: KETOROLAC 30 MG/ML VIAL IV (22:02)
[2023-10-21] MEDS: SODIUM CHLORIDE 0.9% 615 ML IV (22:03)
[2023-10-21 22:04] LABS: Hematocrit 46.6 % (41-53); Hemoglobin 15.8 g/dL (13.5-17.5); INR 1.1 (0.9-1.3); Mean Corpuscular Hemoglobin 28.5 PG (26-34); Mean Corpuscular Volume 83.9 fL (80-100); Platelet Count 328 X10^3/uL (150-400); Prothrombin Time 12.4 SECONDS (9.4-12.5); Red Blood Cell Count 5.55 X10^6/uL (4.5-5.9); White Blood Cell Count 20.5 X10^3/uL (4.5-11.0)
[2023-10-21 22:07] LABS: PTT Partial Thromboplastin Tim 29 SECONDS (25.1-36.5)
[2023-10-21 22:12] LABS: Albumin 4.6 g/dL (3.5-5.0); Albumin Globulin Ratio 1.2 (1.0-2.8); Alkaline Phosphatase 87 U/L (38-126); Aspartate Aminotransferase 45 IU/L (17-59); BUN Creatinine Ratio 22.4 (6-22); Bilirubin Total 0.8 mg/dL (0.2-1.3); Blood Urea Nitrogen 13 mg/dL (9-20); Calcium 9.7 mg/dL (8.4-10.2); Carbon Dioxide 27 mmol/L (22-32); Chloride 96 mmol/L (98-107); Estimated Glomerular Filt Rate > 60 mL/min (>60); Globulin 3.8 g/dL (1.7-4.1); Glucose 286 mg/dL (70-100); HEMOLYSIS < 15 (0-50); Lipase 120 U/L (23-300); Potassium 3.6 mmol/L (3.4-5.1); Sodium 136 mmol/L (137-145); Total Protein 8.4 g/dL (6.3-8.2)
[2023-10-21 22:17] LABS: Alanine Aminotransferase 90 IU/L (<50); Lactate (Lactic Acid) 6.1 mmol/L (0.7-2.1)
[2023-10-21 22:22] LABS: Add Manual Diff / Slide Review YES
[2023-10-21 22:24] LABS: Neutrophils Absolute Manual 17835 /uL (3000-5900); RBC Morphology Normal Morphology; Total Cells Counted 100
[2023-10-21 22:28] LABS: Procalcitonin 0.11 ng/mL (<0.5)
--- NOTE | 2023-10-21 22:47 | ED_ITS ---
HPI - Sepsis General Chief Complaint: Fever Mode of arrival: EMS Source: EMS Evaluation Sepsis Screen: Possible Severe Sepsis Risk Sepsis Infection Criteria Present: Suspected New Infection Narrative: Patient is a 33-year-old male history of insulin-dependent diabetes hypertension obesity presenting today with fever tachycardia and significant right leg pain. He reports that he is had cellulitis in that leg before. He says he woke normal this morning however earlier this evening he had an increased pain unable to walk. He is noted to be tachycardic and febrile here in the ED. He arrived by EMS. Reports that he is had a cough ongoing since September when he was diagnosed with bronchitis. He says it is not any worse than normal. He denies any chest pain palpitations or shortness of breath. Although he is requiring 1- 2 L of oxygen. He also states that he is currently self treating for balanitis but says that is improving. He is no testicular pain Patient History Medical History GERD (gastroesophageal reflux disease) HTN (hypertension) Diabetes Morbid obesity Lumbar strain Surgical History History of hip surgery Family History Mother Heart disease Father Heart disease Social History marital status: unmarried,living together household members: significant other occupational status: employed Smoking Status: Former smoker alcohol intake: current substance use type: marijuana Smoking Status: Former smoker tobacco type: cigarettes alcohol intake frequency: a few times a month Substance Use Type: marijuana Exam Initial Vital Signs Initial Vital Signs: Vital Signs Temperature 101.1 F H 10/21/23 21:35 Pulse Rate 141 H 10/21/23 21:35 Respiratory Rate 24 10/21/23 21:35 Blood Pressure 157/98 H 10/21/23 21:35 Pulse Oximetry 95 10/21/23 21:35 Oxygen Delivery Method Room Air 10/21/23 21:35 GENERAL: Alert 33-year-old male appears to not feel well BMI 58 HEENT: Head atraumatic,EOMI, pupils reactive, face symmetric, moist mucous membranes CARDIOVASCULAR: Tachycardic RESPIRATORY: Decreased breath sounds bilaterally ABDOMEN: Soft, nontender. Normoactive bowel sounds all 4 quadrants. No guarding or rebound. : No scrotal or testicular involvement balanitis at tip of penis without cellulitis EXTREMITIES: Normal range of motion, no clubbing or edema. Neurovascularly intact NEUROLOGICAL: Alert and oriented x4.Normal gait and speech. SKIN: Left leg actually looks more erythematous in the right leg but he is tender right medial thigh slightly posterior his knee there is no erythema abscess or swelling at this area where he is painful. Course Orders Ordered: ED Orders 10/21/23 21:35 Complete Blood Count AUTO DIFF Stat Comprehensive Metabolic Panel Stat Lactate (Lactic Acid) Stat Lipase Stat PTT Partial Thromboplastin Peter Stat Procalcitonin Stat Prothrombin Time INR Stat 10/21/23 21:44 XR chest 1V Stat EKG-12 Lead Stat 10/21/23 21:48 Blood Culture Stat 10/21/23 22:49 BNP [NT-proBNP (BNP-Adult 18+)] Stat D Dimer Stat 10/21/23 22:55 Respiratory Panel (Film Array) Stat 10/22/23 01:05 CT LE RT w con Stat CT angio chest PE protocol Stat 10/22/23 01:23 Consult to Discharge Planning Routine 10/22/23 07:00 Comprehensive Metabolic Panel DAILY Magnesium DAILY 10/23/23 07:00 Comprehensive Metabolic Panel DAILY Magnesium DAILY 10/24/23 07:00 Comprehensive Metabolic Panel DAILY Magnesium DAILY Acetaminophen (Acetaminophen 325 Mg Tablet) 650 mg PO Q6H PRN PRN Reason: Fever/Mild Pain (1-3) Albuterol (Albuterol 2.5 Mg/3 Ml Neb (Adult)) 2.5 mg INH [id number] PRN PRN Reason: Dyspnea Amlodipine Besylate (Amlodipine 5 Mg Tablet) 5 mg PO DAILY MAXIMO Sodium Chloride (Normal Saline 0.9%) 1,000 mls @ 100 mls/hr IV CONT MAXIMO Last Admin: 10/22/23 02:32 Dose: 100 mls/hr Documented By: CHRISTELLE Ceftriaxone Sodium 2,000 mg/ (Sodium Chloride) 100 mls @ 200 mls/hr IV Q24H [facility] Insulin Human Isoph/Insulin Regular (Insulin 70-30 Kwikpen 100 Unit/Ml Insuln.Pen) 40 unit SUBCUT QPM MAXIMO Insulin Human Isoph/Insulin Regular (Insulin 70-30 Kwikpen 100 Unit/Ml Insuln.Pen) 50 unit SUBCUT DAILY MAXIMO Lisinopril (Lisinopril 10 Mg Tablet) 10 mg PO DAILY MAXIMO Lorazepam (Lorazepam 2 Mg/Ml Inj) 0.25 mg IV Q4HR PRN PRN Reason: Anxiety Melatonin (Melatonin 3 Mg Tablet) 9 mg PO BEDTIME PRN PRN Reason: insomnia Morphine Sulfate (Morphine 4 Mg/Ml Inj) 3 mg IV Q2HR PRN PRN Reason: Pain, Severe (7-10) Last Admin: 10/22/23 02:32 Dose: 3 mg Documented By: CHRISTELLE Naloxone HCl (Naloxone 0.4 Mg/Ml Vial) 0.2 mg IV Q2MIN PRN PRN Reason: Opiate Reversal Ondansetron HCl (Ondansetron 4 Mg/2 Ml Inj) 4 mg IV NOW PRN PRN Reason: Nausea And Vomiting Ondansetron HCl (Ondansetron 4 Mg Odt) 4 mg SL NOW PRN PRN Reason: Nausea And Vomiting Oxycodone HCl (Oxycodone Ir 5 Mg Tablet) 5 mg PO Q3H PRN PRN Reason: Pain, Moderate (4-6) Last Admin: 10/22/23 04:07 Dose: 5 mg Documented By: CESAR Pantoprazole Sodium (Pantoprazole Dr 40 Mg Tablet) 40 mg PO DAILY MAXIMO Discontinued Medications Sodium Chloride (Normal Saline 0.9%) 1,000 mls @ 1,000 mls/hr IV BOLUS ONE Stop: 10/21/23 22:43 Last Admin: 10/21/23 22:02 Dose: Not Given Documented By: CHRISTELLE Sodium Chloride (Normal Saline 0.9%) 1,845 mls @ 615 mls/hr 30 ml/kg infuse over 3 hr (1845 ml) IV NOW ONE Stop: 10/22/23 00:58 Last Infusion: 10/22/23 00:07 Dose: Infused Documented By: Admin: 10/21/23 22:03 Dose: 615 mls/hr Documented By: CHRISTELLE Ceftriaxone Sodium 1,000 mg/ (Sodium Chloride) 100 mls @ 200 mls/hr IV NOW ONE Stop: 10/21/23 22:48 Last Infusion: 10/21/23 23:44 Dose: Infused Documented By: Admin: 10/21/23 23:09 Dose: 200 mls/hr Documented By: CHRISTELLE Acetaminophen (Ofirmev) 1,000 mg in 100 mls @ 400 mls/hr IV NOW ONE Stop: 10/21/23 23:01 Last Infusion: 10/21/23 23:23 Dose: Infused Documented By: Admin: 10/21/23 23:06 Dose: 400 mls/hr Documented By: CHRISTELLE Sodium Chloride (Normal Saline 0.9%) 1,000 mls @ 615 mls/hr IV BOLUS ONE Stop: 10/22/23 01:44 Last Infusion: 10/22/23 02:13 Dose: Infused Documented By: Admin: 10/22/23 00:09 Dose: 615 mls/hr Documented By: CHRISTELLE Ketorolac Tromethamine (Ketorolac 30 Mg/Ml Vial) 30 mg IV NOW ONE Stop: 10/21/23 22:00 Last Admin: 10/21/23 22:02 Dose: 30 mg Documented By: CHRISTELLE Vital Signs Vital signs: Vital Signs - 8 hr 10/21/23 21:35 10/21/23 22:10 10/21/23 22:11 Temperature 101.1 F H Pulse Rate 141 H 135 H Respiratory Rate 24 20 Blood Pressure 157/98 H 146/66 H Pulse Oximetry 95 87 L Oxygen Delivery Method Room Air Room Air Nasal Cannula Oxygen Flow Rate 3 10/21/23 22:29 10/21/23 22:29 10/21/23 22:30 Temperature Pulse Rate 142 H 142 H Respiratory Rate Blood Pressure 131/60 Pulse Oximetry 89 L 88 L Oxygen Delivery Method Room Air Room Air Oxygen Flow Rate 10/21/23 22:30 10/21/23 23:00 10/21/23 23:13 Temperature Pulse Rate 134 H 135 H Respiratory Rate 32 H 33 H Blood Pressure 127/59 L Pulse Oximetry 94 94 93 Oxygen Delivery Method Nasal Cannula Nasal Cannula Nasal Cannula Oxygen Flow Rate 3 3 3 10/21/23 23:13 10/21/23 23:30 10/21/23 23:34 Temperature Pulse Rate 136 H Respiratory Rate 26 H Blood Pressure 137/59 L 129/58 L Pulse Oximetry 94 Oxygen Delivery Method Nasal Cannula Oxygen Flow Rate 3 10/21/23 23:34 10/22/23 00:00 10/22/23 00:00 Temperature 99.4 F Pulse Rate 134 H 128 H Respiratory Rate 22 24 Blood Pressure 127/60 Pulse Oximetry 94 92 Oxygen Delivery Method Nasal Cannula Nasal Cannula Oxygen Flow Rate 3 3 10/22/23 00:30 10/22/23 00:30 10/22/23 01:00 Temperature Pulse Rate 123 H 119 H Respiratory Rate 31 H 25 H Blood Pressure 130/62 Pulse Oximetry 93 Oxygen Delivery Method Nasal Cannula Oxygen Flow Rate 3 10/22/23 01:00 10/22/23 01:44 10/22/23 01:47 Temperature Pulse Rate 119 H 121 H Respiratory Rate 17 Blood Pressure 124/59 L Pulse Oximetry 96 97 Oxygen Delivery Method Nasal Cannula Nasal Cannula Oxygen Flow Rate 3 3 10/22/23 01:47 10/22/23 02:00 10/22/23 02:00 Temperature Pulse Rate 119 H Respiratory Rate 24 Blood Pressure 131/60 130/62 Pulse Oximetry 91 Oxygen Delivery Method Nasal Cannula Oxygen Flow Rate 3 10/22/23 02:30 10/22/23 02:30 Temperature Pulse Rate 120 H Respiratory Rate 31 H Blood Pressure 128/59 L Pulse Oximetry 93 Oxygen Delivery Method Nasal Cannula Oxygen Flow Rate 3 Sepsis Evaluation (ED) Triage Screening Sepsis Screen: Possible Severe Sepsis Risk Level 1 - Infection Sepsis Infection Criteria Present: Suspected New Infection Response It is my opinion that his patient have a likely infectious etiology for meeting sepsis criteria: Does Fluid calculation based on 30 mL/kg within 1hr of criteria: IBW used due to BMI>30 Antibiotics initiated within 1 hr of Sepis dx: Yes Tissue Perfusion Reassessed within 6 hrs of infusion start time: Yes Date of Tissue Perfusion Reassessment completed: 10/22/23 Time Tissue Perfusion Reassessment completed: 00:10 MDM - Sepsis Lab Data 10/21/23 21:35 10/21/23 21:35 Labs: Lab Results 10/21/23 10/21/23 10/21/23 Range/Units 21:35 22:49 22:55 WBC 20.5 H (4.5-11.0) X10^3/uL RBC 5.55 (4.5-5.9) X10^6/uL Hgb 15.8 (13.5-17.5) g/dL Hct 46.6 (41-53) % MCV 83.9 (80-100) fL MCH 28.5 (26-34) PG MCHC 34.0 (30-36) % RDW 14.0 (11.6-14.8) % Plt Count 328 (150-400) X10^3/uL Neut % (Auto) Not Reportable Lymph % (Auto) Not Reportable [facility] % (Auto) Not Reportable Eos % (Auto) Not Reportable Baso % (Auto) Not Reportable Lymph # (Auto) Not Reportable [facility] # (Auto) Not Reportable Baso # (Auto) Not Reportable Total Counted 100 Seg Neutrophils % 76.0 H (38-70) % Band Neutrophils % 11.0 H (3-7) % Lymphocytes % (Manual) 9.0 L (25-45) % Monocytes % (Manual) 3.0 (2-11) % Eosinophils % (Manual) 1.0 L (2-4) % Neutrophils # (Manual) 49274 H (8332-2764) /uL RBC Morphology Normal morphology PT 12.4 (9.4-12.5) SECONDS INR 1.1 (0.9-1.3) APTT 29 (25.1-36.5) SECONDS D-Dimer 592 H (<500) ng/ml Sodium 136 L (137-145) mmol/L Potassium 3.6 (3.4-5.1) mmol/L Chloride 96 L (98-107) mmol/L Carbon Dioxide 27 (22-32) mmol/L BUN 13 (9-20) mg/dL Creatinine 0.58 L (0.66-1.25) mg/dL Estimated GFR > 60 (>60) mL/min BUN/Creatinine Ratio 22.4 H (6-22) Glucose 286 H (70-100) mg/dL Lactate 6.1 H* (0.7-2.1) mmol/L Calcium 9.7 (8.4-10.2) mg/dL Total Bilirubin 0.8 (0.2-1.3) mg/dL AST 45 (17-59) IU/L ALT 90 H (<50) IU/L Alkaline Phosphatase 87 (38-126) U/L NT-Pro-B Natriuret Pep < 20 (<125) pg/mL Total Protein 8.4 H (6.3-8.2) g/dL Albumin 4.6 (3.5-5.0) g/dL Globulin 3.8 (1.7-4.1) g/dL Albumin/Globulin Ratio 1.2 (1.0-2.8) Lipase 120 (23-300) U/L Procalcitonin 0.11 (<0.5) ng/mL Nasal Screen MRSA (PCR) Chlamy pneumoniae PCR Not detected (Not Detect) Adenovirus (PCR) Not detected (Not Detect) B.parapertussis DNA PCR Not detected (Not Detecte) Coronavirus OC43 (PCR) Not detected (Not Detect) Coronavirus HKU1 (PCR) Not detected (Not Detect) Coronavirus 229E (PCR) Not detected (Not Detect) SARS-CoV-2 (PCR) Not detected (Not Detecte) Coronavirus NL63 (PCR) Not detected (Not Detect) Human Metapneumovir PCR Not detected (Not Detect) Influenza Type A (PCR) Not detected (Not Detect) Influenza Type B (PCR) Not detected (Not Detect) M. pneumoniae (PCR) Not detected (Not Detect) Parainfluenza 1 (PCR) Not detected (Not Detect) Parainfluenza 2 (PCR) Not detected (Not Detect) Parainfluenza 3 (PCR) Not detected (Not Detect) Parainfluenza 4 (PCR) Not detected (Not Detect) RSV (PCR) Not detected (Not Detect) Entero/Rhino (PCR) Not detected (Not Detect) 10/21/23 10/22/23 Range/Units 23:49 01:50 WBC (4.5-11.0) X10^3/uL RBC (4.5-5.9) X10^6/uL Hgb (13.5-17.5) g/dL Hct (41-53) % MCV (80-100) fL MCH (26-34) PG MCHC (30-36) % RDW (11.6-14.8) % Plt Count (150-400) X10^3/uL Neut % (Auto) Lymph % (Auto) [facility] % (Auto) Eos % (Auto) Baso % (Auto) Lymph # (Auto) [facility] # (Auto) Baso # (Auto) Total Counted Seg Neutrophils % (38-70) % Band Neutrophils % (3-7) % Lymphocytes % (Manual) (25-45) % Monocytes % (Manual) (2-11) % Eosinophils % (Manual) (2-4) % Neutrophils # (Manual) (3565-6859) /uL RBC Morphology PT (9.4-12.5) SECONDS INR (0.9-1.3) APTT (25.1-36.5) SECONDS D-Dimer (<500) ng/ml Sodium (137-145) mmol/L Potassium (3.4-5.1) mmol/L Chloride (98-107) mmol/L Carbon Dioxide (22-32) mmol/L BUN (9-20) mg/dL Creatinine (0.66-1.25) mg/dL Estimated GFR (>60) mL/min BUN/Creatinine Ratio (6-22) Glucose (70-100) mg/dL Lactate 2.0 (0.7-2.1) mmol/L Calcium (8.4-10.2) mg/dL Total Bilirubin (0.2-1.3) mg/dL AST (17-59) IU/L ALT (<50) IU/L Alkaline Phosphatase (38-126) U/L NT-Pro-B Natriuret Pep (<125) pg/mL Total Protein (6.3-8.2) g/dL Albumin (3.5-5.0) g/dL Globulin (1.7-4.1) g/dL Albumin/Globulin Ratio (1.0-2.8) Lipase (23-300) U/L Procalcitonin (<0.5) ng/mL Nasal Screen MRSA (PCR) Cancelled Chlamy pneumoniae PCR (Not Detect) Adenovirus (PCR) (Not Detect) B.parapertussis DNA PCR (Not Detecte) Coronavirus OC43 (PCR) (Not Detect) Coronavirus HKU1 (PCR) (Not Detect) Coronavirus 229E (PCR) (Not Detect) SARS-CoV-2 (PCR) (Not Detecte) Coronavirus NL63 (PCR) (Not Detect) Human Metapneumovir PCR (Not Detect) Influenza Type A (PCR) (Not Detect) Influenza Type B (PCR) (Not Detect) M. pneumoniae (PCR) (Not Detect) Parainfluenza 1 (PCR) (Not Detect) Parainfluenza 2 (PCR) (Not Detect) Parainfluenza 3 (PCR) (Not Detect) Parainfluenza 4 (PCR) (Not Detect) RSV (PCR) (Not Detect) Entero/Rhino (PCR) (Not Detect) Point of Care Testing Glucose POC 278 Imaging Data Chest x-ray: Radiologist's Impression: PROCEDURE: XR CHEST 1V INDICATIONS: suspected sepsis TECHNIQUE: One view of the chest was acquired. COMPARISON: [facility], CT, CT ANGIO CHEST PE PROTOCOL, 09/18/2023, 21:17. [facility], CR, XR CHEST 1V, 12/26/2018, 15:42. FINDINGS: Surgical changes and devices: None. Lungs and pleura: Lungs are clear. No pleural effusions or pneumothorax. Mediastinum: Cardiac silhouette appears mildly enlarged, but may be exaggerated by portable technique and incomplete inspiration. Prominent epicardial fat is noted on prior CT from 09/18/2023 and likely accounts for the radiographic appearance. Bones and chest wall: No suspicious bony lesions. Overlying soft tissues appear unremarkable. IMPRESSION: No acute cardiopulmonary abnormality identified. Approved by: Willie Hilton M.D. on 10/21/2023 at 23:50 CT scan - chest: Radiologist's Impression: PROCEDURE: CT ANGIO CHEST PE PROTOCOL INDICATIONS: hypoxia TECHNIQUE: After the administration of intravenous contrast, 2 mm thick sections acquired from the pulmonary apices to the posterior costophrenic angles. 3-dimensional maximum intensity projection (MIP) coronal and sagittal reformats were then acquired through the thorax. For radiation dose reduction, the following was used: automated exposure control, adjustment of mA and/or kV according to patient size. COMPARISON: [facility], CT, CT ANGIO CHEST PE PROTOCOL, 09/18/2023, 21:17. FINDINGS: Image quality: Suboptimal opacification of the pulmonary arteries is seen related to the timing of the contrast bolus, which compromises evaluation of smaller peripheral subsegmental pulmonary arteries. Pulmonary arteries: Pulmonary arteries are normal in size, and demonstrate no intraluminal filling defects to suggest central pulmonary embolism. Lungs and pleura: Lungs are clear. No pleural effusions or pneumothorax. Central and peripheral airways are patent. Mediastinum: Heart size is mildly enlarged, without pericardial effusion. No mediastinal or hilar adenopathy. Thoracic aorta is normal in caliber and enhancement. Esophagus is normal in caliber, without hiatal hernia. Bones and chest wall: No suspicious bony lesions. Ribs and thoracic spine appear intact throughout. No axillary or supraclavicular adenopathy. No thyroid nodules which require sonographic follow up, per consensus guidelines. Upper Abdomen: Diffuse hepatic steatosis. Visualized upper abdominal solid organs appear normal in the early arterial phase of enhancement. IMPRESSION: 1. No acute central pulmonary embolus, although there is suboptimal timing of the contrast bolus and the peripheral pulmonary arteries are not optimally evaluated. 2. No acute abnormality identified in the chest. 3. Mild cardiomegaly. 4. Marked hepatic steatosis. Approved by: Willie Hilton M.D. on 10/22/2023 at 2:51 CT LE: Radiologist's Impression: PROCEDURE: CT LE RT W CON INDICATIONS: spesis, pain, r/o nec fac and abcess TECHNIQUE: After the administration of intravenous contrast, 3 mm axial sections acquired of the right thigh, with coronal and sagittal reformats. COMPARISON: None. FINDINGS: Image quality: Excellent. Bones: No acute osseous fracture or dislocation. 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 No focal osseous erosion or cortical destruction. Soft tissues: No significant focal soft tissue edema. No soft tissue gas. No focal fluid collection is seen. No intermuscular fascial edema. The thigh musculature is normal in bulk. There is a small right medial popliteal cyst. No significant right knee effusion is seen. Mildly prominent right inguinal lymph nodes are nonspecific and may be reactive. Included pelvic soft tissues demonstrate no acute abnormality. IMPRESSION: 1. No signs of fasciitis or osteomyelitis. No soft tissue gas or focal fluid collection. 2. 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 Approved by: Willie Hilton M.D. on 10/22/2023 at 2:55 MDM Narrative Medical decision making narrative: Patient 73-year-old male presents with sepsis fever and tachycardia. He would sudden onset of right-sided leg pain . Blood work reveals leukocytosis of 20,000 with a lactate of 6.0 which did improve to 2.0, procalcitonin 0.11 no evidence of acute kidney injury or other abnormalities. Negative respiratory Patient overall appears to not feel well really complaining of right leg pain. Left leg looks more erythematous to me the right. CT of the right lower leg does not show any evidence of abscess air or gas this time low suspicion for necrotizing fasciitis. CT angio was done. Patient is mildly hypoxic. He denies any chest pain cough or shortness breath. He is tachycardic. CT does not show any evidence of a pneumonia or pulmonary embolism. Patient's heart rate improved with treatment of fever sepsis fluids and antibiotics. He reports that he has had allergic reactions to vancomycin so he is given Rocephin. He does require CPAP here in the ED which helps with his hypoxia. I think there is probably some hypoventilation secondary to obesity causing the mild hypoxia. Patient is resting comfortably. Blood pressure remained stable map greater than 65. Fever and heart rate both improved. Dr. Cantu accepts patient. Discharge Plan Departure Patient Disposition: Admitted As Inpatient Clinical Impression: Sepsis, Cellulitis Admit Date/Time: 10/22/23 02:49 Admit Provider: Sha Cantu
[2023-10-21] MEDS: ACETAMINOPHEN IV 1,000 MG/100 ML VIAL 400 MG IV (23:06)
[2023-10-21] MEDS: cefTRIAXone 1,000 MG in SODIUM CHLORIDE 0.9% 100 ML 200 MG IV (23:09)
[2023-10-21 23:10] LABS: D Dimer 592 ng/ml (<500)
[2023-10-21 23:20] LABS: NT-proBNP (BNP-Adult 18+) < 20 pg/mL (<125)
[2023-10-21 23:28] LABS: Reflexed Lactate in 2 Hours Y
[2023-10-21 23:53] LABS: Adenovirus Not Detected (Not Detect); B. parapertussis Not Detected (Not Detecte); Bordetella pertussis Not Detected (Not Detect); Chlamydophila pneumoniae Not Detected (Not Detect); Coronavirus 229E Not Detected (Not Detect); Coronavirus HKU1 Not Detected (Not Detect); Coronavirus NL 63 Not Detected (Not Detect); Coronavirus OC43 Not Detected (Not Detect); Human Metapneumovirus Not Detected (Not Detect); Human Rhinovirus/Enterovirus Not Detected (Not Detect); Influenza A Not Detected (Not Detect); Influenza B Not Detected (Not Detect); Mycoplasma pneumoniae Not Detected (Not Detect); Parainfluenza Virus 1 Not Detected (Not Detect); Parainfluenza Virus 2 Not Detected (Not Detect); Parainfluenza Virus 3 Not Detected (Not Detect); Parainfluenza Virus 4 Not Detected (Not Detect); Respiratory Syncytial Virus Not Detected (Not Detect); SARS- CoV-2 Not Detected (Not Detecte)
[2023-10-22] VITALS (60 sets, daily range): BP systolic 124–136; BP diastolic 56–75; PULSE 11–189; RESP 15–34; TEMP 36.8–37.5; O2SAT 91–99; BMI 58.7
[2023-10-22] MEDS: SODIUM CHLORIDE 0.9% 1,000 ML 615 ML IV (00:09)
--- NOTE | 2023-10-22 01:05 | DI.CT.S_ITS ---
PROCEDURE: CT ANGIO CHEST PE PROTOCOL INDICATIONS: hypoxia TECHNIQUE: After the administration of intravenous contrast, 2 mm thick sections acquired from the pulmonary apices to the posterior costophrenic angles. 3-dimensional maximum intensity projection (MIP) coronal and sagittal reformats were then acquired through the thorax. For radiation dose reduction, the following was used: automated exposure control, adjustment of mA and/or kV according to patient size. COMPARISON: [facility], CT, CT ANGIO CHEST PE PROTOCOL, 09/18/2023, 21:17. FINDINGS: Image quality: Suboptimal opacification of the pulmonary arteries is seen related to the timing of the contrast bolus, which compromises evaluation of smaller peripheral subsegmental pulmonary arteries. Pulmonary arteries: Pulmonary arteries are normal in size, and demonstrate no intraluminal filling defects to suggest central pulmonary embolism. Lungs and pleura: Lungs are clear. No pleural effusions or pneumothorax. Central and peripheral airways are patent. Mediastinum: Heart size is mildly enlarged, without pericardial effusion. No mediastinal or hilar adenopathy. Thoracic aorta is normal in caliber and enhancement. Esophagus is normal in caliber, without hiatal hernia. Bones and chest wall: No suspicious bony lesions. Ribs and thoracic spine appear intact throughout. No axillary or supraclavicular adenopathy. No thyroid nodules which require sonographic follow up, per consensus guidelines. Upper Abdomen: Diffuse hepatic steatosis. Visualized upper abdominal solid organs appear normal in the early arterial phase of enhancement. IMPRESSION: 1. No acute central pulmonary embolus, although there is suboptimal timing of the contrast bolus and the peripheral pulmonary arteries are not optimally evaluated. 2. No acute abnormality identified in the chest. 3. Mild cardiomegaly. 4. Marked hepatic steatosis. Approved by: Willie Hilton M.D. on 10/22/2023 at 2:51
--- NOTE | 2023-10-22 01:05 | DI.CT.S_ITS ---
PROCEDURE: CT LE RT W CON INDICATIONS: spesis, pain, r/o nec fac and abcess TECHNIQUE: After the administration of intravenous contrast, 3 mm axial sections acquired of the right thigh, with coronal and sagittal reformats. COMPARISON: None. FINDINGS: Image quality: Excellent. Bones: No acute osseous fracture or dislocation. 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 No focal osseous erosion or cortical destruction. Soft tissues: No significant focal soft tissue edema. No soft tissue gas. No focal fluid collection is seen. No intermuscular fascial edema. The thigh musculature is normal in bulk. There is a small right medial popliteal cyst. No significant right knee effusion is seen. Mildly prominent right inguinal lymph nodes are nonspecific and may be reactive. Included pelvic soft tissues demonstrate no acute abnormality. IMPRESSION: 1. No signs of fasciitis or osteomyelitis. No soft tissue gas or focal fluid collection. 2. 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 Approved by: Willie Hilton M.D. on 10/22/2023 at 2:55
--- NOTE | 2023-10-22 01:36 | PC.NURSE ---
23:00- this nurse and STEVEN Flores and STEVEN Smith did a skin check on patient. Red and foul smell between groin. Small paper-cut like lacerations of head of penis. Patient reports HSV. Left lower leg red and taut. Right lower leg painful to touch, no redness.
[2023-10-22] MEDS: MORPHINE 4 MG/ML INJ 3 MG IV ×4 (02:32→19:47)
[2023-10-22] MEDS: SODIUM CHLORIDE 0.9% 1,000 ML 100 ML IV ×3 (02:32→22:29)
[2023-10-22] MEDS: OXYCODONE IR 5 MG TABLET PO ×2 (04:07→08:42)
--- NOTE | 2023-10-22 04:42 | P.HP_ITS ---
History of Present Illness History of Present Illness Chief complaint: Fever Narrative: 33 years old male with history of insulin-dependent diabetes, hypertension, GERD, morbidly obesity presented to the ED with fever, tachycardia and right leg pain since yesterday. He also was unable to walk due to pain. Reports having cellulitis the same leg. Denies any shortness of breath, cough, chest pain, palpitations, nausea, vomiting, abdominal pain, diarrhea or dysuria. Allergic to vancomycin and tobramycin with hives. She also reports some balanitis and testicular pain but self treating. Initial laboratory shows WBC 20, H&H 15.8/46.6, platelets 328, D-dimer 592, sodium 136, potassium 3.6, creatinine 0.58, blood sugar 286, BNP 20, procalcitonin 0.11, respiratory viral panel negative, chest x-ray unremarkable. Initial vital signs temperature 101.1, pulse 141, blood pressure 146/66, oxygen saturation 93% on nasal cannula. He was started on ceftriaxone 1 g IV, Toradol 30 mg IV, NS bolus 2 L, Zofran IV and Tylenol p.o. [facility], LATER [facility] Medical History GERD (gastroesophageal reflux disease) HTN (hypertension) Diabetes Morbid obesity Lumbar strain Surgical History History of hip surgery Family History Mother Heart disease Father Heart disease Social History marital status: unmarried,living together household members: significant other occupational status: employed Smoking Status: Former smoker alcohol intake: current substance use type: marijuana Meds Home Medications and Allergies Home Medications Medication Instructions Recorded Confirmed Type omeprazole 40 mg capsule,delayed 40 mg PO DAILY 12/26/18 05/16/22 History release amlodipine 5 mg tablet (Norvasc) 5 mg PO DAILY 06/05/21 05/16/22 History insulin NPH-reg human insulin 100 40 unit SUBCUT ONCE PM 06/05/21 05/16/22 History unit/mL (70-30) subcutaneous syringe insulin NPH-reg human insulin 100 50 unit SUBCUT QAM 06/05/21 05/16/22 History unit/mL (70-30) subcutaneous syringe lisinopril 10 mg tablet 10 mg PO DAILY 06/05/21 05/16/22 History metformin 1,000 mg tablet 1,000 mg PO BID 06/05/21 05/16/22 History cephalexin 500 mg capsule 500 mg PO QID #28 caps 05/17/22 Rx ibuprofen 800 mg tablet 800 mg PO Q8H PRN pain #21 tabs 05/17/22 Rx fluconazole 150 mg tablet 150 mg PO Q3D 2 doses #2 tabs 06/05/22 Rx lidocaine 5 % topical ointment 1 applic topical QID PRN pain #30 03/12/23 Rx grams prednisone 20 mg tablet 20 mg PO DAILY #6 tabs 09/18/23 Rx Allergies Allergy/AdvReac Type Severity Reaction Status Date / Time vancomycin Allergy Intermediate Rash Verified 10/21/23 21:43 tramadol [From ULTRAM] Allergy Unknown Verified 10/21/23 21:43 tobramycin Allergy Rash Verified 10/21/23 21:43 Review of Systems Review of Systems ROS: Yes All systems reviewed with the patient and are negative except as otherwise documented Constitutional Constitutional: Reports as per HPI and Reports system reviewed and no additional complaints, except as documented Eyes Eyes: Reports as per HPI and Reports system reviewed and no additional complaints, except as documented ENT Ears, Nose, Mouth, and Throat: Yes as per HPI and Yes system reviewed and no additional complaints, except as documented Cardiovascular Cardiovascular: Reports system reviewed and no additional complaints, except as documented Respiratory Respiratory: Reports system reviewed and no additional complaints, except as documented Gastrointestinal Gastrointestinal: Reports system reviewed and no additional complaints, except as documented Genitourinary Genitourinary: Reports system reviewed and no additional complaints, except as documented Musculoskeletal Musculoskeletal: Reports system reviewed and no additional complaints, except as documented, Reports abnormal gait and Reports numbness Neurologic Neurologic: Reports system reviewed and no additional complaints, except as documented, Reports abnormal gait, Reports confusion and Reports numbness Psychiatric Psychiatric: Reports system reviewed and no additional complaints, except as documented and Reports confusion Exam Vital Signs (past 8 hours): - 10/21/23 21:35 10/21/23 22:10 10/21/23 22:11 Temperature 101.1 F H Pulse Rate 141 H 135 H Respiratory Rate 24 20 Blood Pressure 157/98 H 146/66 H Pulse Oximetry 95 87 L Oxygen Delivery Method Room Air Room Air Nasal Cannula Oxygen Flow Rate 3 10/21/23 22:29 10/21/23 22:29 10/21/23 22:30 Temperature Pulse Rate 142 H 142 H Respiratory Rate Blood Pressure 131/60 Pulse Oximetry 89 L 88 L Oxygen Delivery Method Room Air Room Air Oxygen Flow Rate 10/21/23 22:30 10/21/23 23:00 10/21/23 23:13 Temperature Pulse Rate 134 H 135 H Respiratory Rate 32 H 33 H Blood Pressure 127/59 L Pulse Oximetry 94 94 93 Oxygen Delivery Method Nasal Cannula Nasal Cannula Nasal Cannula Oxygen Flow Rate 3 3 3 10/21/23 23:13 10/21/23 23:30 10/21/23 23:34 Temperature Pulse Rate 136 H Respiratory Rate 26 H Blood Pressure 137/59 L 129/58 L Pulse Oximetry 94 Oxygen Delivery Method Nasal Cannula Oxygen Flow Rate 3 10/21/23 23:34 10/22/23 00:00 10/22/23 00:00 Temperature 99.4 F Pulse Rate 134 H 128 H Respiratory Rate 22 24 Blood Pressure 127/60 Pulse Oximetry 94 92 Oxygen Delivery Method Nasal Cannula Nasal Cannula Oxygen Flow Rate 3 3 10/22/23 00:30 10/22/23 00:30 10/22/23 01:00 Temperature Pulse Rate 123 H 119 H Respiratory Rate 31 H 25 H Blood Pressure 130/62 Pulse Oximetry 93 Oxygen Delivery Method Nasal Cannula Oxygen Flow Rate 3 10/22/23 01:00 10/22/23 01:44 10/22/23 01:47 Temperature Pulse Rate 119 H 121 H Respiratory Rate 17 Blood Pressure 124/59 L Pulse Oximetry 96 97 Oxygen Delivery Method Nasal Cannula Nasal Cannula Oxygen Flow Rate 3 3 10/22/23 01:47 10/22/23 02:00 10/22/23 02:00 Temperature Pulse Rate 119 H Respiratory Rate 24 Blood Pressure 131/60 130/62 Pulse Oximetry 91 Oxygen Delivery Method Nasal Cannula Oxygen Flow Rate 3 10/22/23 02:30 10/22/23 02:30 10/22/23 03:00 Temperature Pulse Rate 120 H 117 H Respiratory Rate 31 H 28 H Blood Pressure 128/59 L Pulse Oximetry 93 95 Oxygen Delivery Method Nasal Cannula Oxygen Flow Rate 3 10/22/23 03:30 10/22/23 03:40 Temperature 99.5 F Pulse Rate 118 H 120 H Respiratory Rate 27 H Blood Pressure 127/69 Pulse Oximetry 98 95 Oxygen Delivery Method Room Air Oxygen Flow Rate 3 Oxygen Delivery Method Room Air Oxygen Flow Rate 3 Const General: cooperative, comfortable and well developed Orientation: alert and oriented x3 [facility] Head: normal to inspection, normocephalic and atraumatic Face and sinus: normal facial exam Mouth: oral mucosae normal and moist mucous membranes Throat: posterior oropharynx normal Eyes General: appearance normal, both eyes and all related structures Pupils: PERRL EOM: EOM intact bilaterally Neck Neck: normal visual inspection and full ROM Chest Chest: normal inspection of the chest Resp Effort & Inspection: normal respiratory effort and able to speak in complete sentences Auscultation: clear to auscultation bilaterally Cardio Palpation: normal PMI Rate: regular rate Rhythm: regular rhythm Heart Sounds: S1 normal and S2 normal GI Inspection: normal to inspection Palpation: soft and no hepatosplenomegaly Auscultation: normal bowel sounds Skin General: no rashes or lesions noted Lesions: no lesions Rashes: no rashes Trauma: no lacerations or abrasions Neuro General: patient alert, patient awake, patient oriented x3 and no focal motor deficits Cranial Nerves: CN's II-XI intact bilaterally Cognition: normal cognition Speech: speech normal Gait: normal gait Motor: muscle tone normal throughout Sensory Exam: no sensory deficits noted Extrem General: full ROM and no calf tenderness Psych Appearance: grossly normal Mental Status: mental status grossly normal Speech and Movement: speech and movement normal Objective Labs 10/21/23 21:35 10/21/23 21:35 Labs: Laboratory Results - last 24 hr 10/21/23 10/21/23 10/21/23 21:35 22:49 22:55 WBC 20.5 H RBC 5.55 Hgb 15.8 Hct 46.6 MCV 83.9 MCH 28.5 MCHC 34.0 RDW 14.0 Plt Count 328 Neut % (Auto) Not Reportable Lymph % (Auto) Not Reportable [place] % (Auto) Not Reportable Eos % (Auto) Not Reportable Baso % (Auto) Not Reportable Lymph # (Auto) Not Reportable [place] # (Auto) Not Reportable Baso # (Auto) Not Reportable Total Counted 100 Seg Neutrophils % 76.0 H Band Neutrophils % 11.0 H Lymphocytes % (Manual) 9.0 L Monocytes % (Manual) 3.0 Eosinophils % (Manual) 1.0 L Neutrophils # (Manual) 80491 H RBC Morphology Normal morphology PT 12.4 INR 1.1 APTT 29 D-Dimer 592 H Sodium 136 L Potassium 3.6 Chloride 96 L Carbon Dioxide 27 BUN 13 Creatinine 0.58 L Estimated GFR > 60 BUN/Creatinine Ratio 22.4 H Glucose 286 H Lactate 6.1 H* Calcium 9.7 Total Bilirubin 0.8 AST 45 ALT 90 H Alkaline Phosphatase 87 NT-Pro-B Natriuret Pep < 20 Total Protein 8.4 H Albumin 4.6 Globulin 3.8 Albumin/Globulin Ratio 1.2 Lipase 120 Procalcitonin 0.11 Nasal Screen MRSA (PCR) Chlamy pneumoniae PCR Not detected Adenovirus (PCR) Not detected B.parapertussis DNA PCR Not detected Coronavirus OC43 (PCR) Not detected Coronavirus HKU1 (PCR) Not detected Coronavirus 229E (PCR) Not detected SARS-CoV-2 (PCR) Not detected Coronavirus NL63 (PCR) Not detected Human Metapneumovir PCR Not detected Influenza Type A (PCR) Not detected Influenza Type B (PCR) Not detected M. pneumoniae (PCR) Not detected Parainfluenza 1 (PCR) Not detected Parainfluenza 2 (PCR) Not detected Parainfluenza 3 (PCR) Not detected Parainfluenza 4 (PCR) Not detected RSV (PCR) Not detected Entero/Rhino (PCR) Not detected 10/21/23 10/22/23 23:49 01:50 WBC RBC Hgb Hct MCV MCH MCHC RDW Plt Count Neut % (Auto) Lymph % (Auto) [place] % (Auto) Eos % (Auto) Baso % (Auto) Lymph # (Auto) [place] # (Auto) Baso # (Auto) Total Counted Seg Neutrophils % Band Neutrophils % Lymphocytes % (Manual) Monocytes % (Manual) Eosinophils % (Manual) Neutrophils # (Manual) RBC Morphology PT INR APTT D-Dimer Sodium Potassium Chloride Carbon Dioxide BUN Creatinine Estimated GFR BUN/Creatinine Ratio Glucose Lactate 2.0 Calcium Total Bilirubin AST ALT Alkaline Phosphatase NT-Pro-B Natriuret Pep Total Protein Albumin Globulin Albumin/Globulin Ratio Lipase Procalcitonin Nasal Screen MRSA (PCR) Cancelled Chlamy pneumoniae PCR Adenovirus (PCR) B.parapertussis DNA PCR Coronavirus OC43 (PCR) Coronavirus HKU1 (PCR) Coronavirus 229E (PCR) SARS-CoV-2 (PCR) Coronavirus NL63 (PCR) Human Metapneumovir PCR Influenza Type A (PCR) Influenza Type B (PCR) M. pneumoniae (PCR) Parainfluenza 1 (PCR) Parainfluenza 2 (PCR) Parainfluenza 3 (PCR) Parainfluenza 4 (PCR) RSV (PCR) Entero/Rhino (PCR) Assessment & Plan Assessment and plan (1) Cellulitis of right lower leg: Problem details: With the criteria for sepsis Status: Acute Plan: IV fluids Pain medications and Tylenol for fever as needed Continue antibiotics IV Follow-up on the blood cultures (2) Diabetes: Status: Acute Plan: ADA diet, restart home insulin regimen, check A1c Monitor blood sugar ACHS Hold metformin during hospital stay (3) GERD (gastroesophageal reflux disease): Status: Acute Plan: Restart PPI (4) HTN (hypertension): Status: Acute Plan: Restart lisinopril (5) Morbid obesity: Status: Acute Plan: Low calorie diet Time Spent With Patient Time with patient: 50 to 69 minutes with 50% spent counseling/coordinating care Quality VTE Deep Vein Thrombosis/Pulmonary Embolism Present on Admission: No MIPS - Admit I confirm the patient?s Advance Care Plan is present, Code status is documented, Surrogate decision maker is in patient?s record [If Yes, STOP here]: Yes MIPS - Meds 'Current medications' to include all prescriptions, [id number] products, herbals, cannabis/cannabidiol products, and vitamin/mineral/dietary (nutritional) supplements. I have utilized all available resources to obtain, update, or review the patient?s current medications. [If Yes, STOP here]: Yes
--- NOTE | 2023-10-22 06:15 | PC.NURSE ---
Admit Note-Patient brought to ICU room at 0340. Fatigued but orientedx4. ST 120s, oral temp 99.5, face flushed, skin moist, BLEs hot to touch and slightly erythemic, right inner thigh painful. On 3L NC, apnea noted, C-pap placed with 2.5L O2 bleed-in (was initiated in ED) Denies shortness of breath. Yeast appearance to tip of penis with superficial small scratches/lesions.
[2023-10-22 06:48] LABS: MRSA (Nasal) PCR Not Detected (Not Detect)
[2023-10-22] MEDS: lisinopriL 10 MG TABLET PO (08:41)
[2023-10-22] MEDS: PANTOPRAZOLE DR 40 MG TABLET PO (08:42)
[2023-10-22] MEDS: AMLODIPINE 5 MG TABLET PO (08:42)
[2023-10-22] MEDS: INSULIN 70-30 KwikPen 100 UNIT/ML INSULN.PEN 50 UNIT SUBCUT (08:48)
[2023-10-22 08:53] LABS: Alanine Aminotransferase 45 IU/L (<50); Albumin 3.7 g/dL (3.5-5.0); Albumin Globulin Ratio 1.2 (1.0-2.8); Alkaline Phosphatase 66 U/L (38-126); Aspartate Aminotransferase 24 IU/L (17-59); BUN Creatinine Ratio 21.1 (6-22); Bilirubin Total 0.8 mg/dL (0.2-1.3); Blood Urea Nitrogen 12 mg/dL (9-20); Calcium 8.3 mg/dL (8.4-10.2); Carbon Dioxide 25 mmol/L (22-32); Chloride 101 mmol/L (98-107); Estimated Glomerular Filt Rate > 60 mL/min (>60); Globulin 3.1 g/dL (1.7-4.1); Glucose 304 mg/dL (70-100); HEMOLYSIS < 15 (0-50); Magnesium 1.5 mg/dL (1.6-2.3); Potassium 4.2 mmol/L (3.4-5.1); Sodium 134 mmol/L (137-145); Total Protein 6.8 g/dL (6.3-8.2)
[2023-10-22 10:13] LABS: Bilirubin Urine UA NEGATIVE (NEGATIVE); Glucose Urine UA 2+ g/dL (Negative); Ketones Urine UA TRACE (NEGATIVE); Leukocyte Esterase Urine UA TRACE (NEGATIVE); Nitrite Urine UA NEGATIVE (Negative); Occult Blood Urine UA TRACE-INTACT (Negative); Protein Urine UA 1+ (Negative); Urobilinogen Urine UA 0.2 E.U./dL (0.2); pH Urine UA 5.5 (4.5-8.0)
[2023-10-22 10:23] LABS: Appearance Urine UA CLOUDY; Color Urine UA ORANGE
[2023-10-22 10:25] LABS: Bacteria Urine Few (2-10); RBC Urine 1-5/HPF (0-5/HPF); Squamous Epithelial Cell Urine 1-5 /HPF (0-5/HPF); WBC Urine 1-5/HPF (0-5/HPF)
[2023-10-22 10:26] LABS: Culture Indicated Urine Specimen Cultured
[2023-10-22] MEDS: MAGNESIUM CHLORIDE 64 MG TABLET 128 MG PO (10:28)
[2023-10-22] MEDS: FLUCONAZOLE 100 MG TABLET 150 MG PO (12:09)
--- NOTE | 2023-10-22 12:54 | PC.NURSE ---
Addendum entered by Stephanie Shannon R.N. 10/22/23 18:58: pt slept this afternoon. family in visiting. Original Note: CBG [address] Cuevas notified and wants to con't 70/30 BID.
--- NOTE | 2023-10-22 13:11 | PM.PN.1 ---
Subjective Subjective Interval history: 33M with PMH of cellulitis admitted with recurrence of RLE cellulitis. Continues to have a lot of pain, difficulty with ambulation, and swelling today. No changes reported this morning, may be slightly improved. Exam Vital Signs (past 8 hours): - 10/22/23 05:30 10/22/23 05:31 10/22/23 05:31 Temperature Pulse Rate 117 H 117 H Respiratory Rate 29 H 27 H Blood Pressure 132/62 Pulse Oximetry 97 97 Oxygen Delivery Method Oxygen Flow Rate Fraction of Inspired Oxygen 10/22/23 06:00 10/22/23 06:00 10/22/23 06:30 Temperature Pulse Rate 119 H 121 H Respiratory Rate 34 H 31 H Blood Pressure 127/56 L Pulse Oximetry 96 93 Oxygen Delivery Method Oxygen Flow Rate Fraction of Inspired Oxygen 10/22/23 07:00 10/22/23 07:00 10/22/23 07:30 Temperature Pulse Rate 122 H 122 H Respiratory Rate 22 22 Blood Pressure 133/63 Pulse Oximetry 94 96 Oxygen Delivery Method Oxygen Flow Rate Fraction of Inspired Oxygen 10/22/23 08:00 10/22/23 08:00 10/22/23 08:30 Temperature Pulse Rate 122 H 121 H Respiratory Rate 30 H 29 H Blood Pressure 136/65 Pulse Oximetry 93 95 Oxygen Delivery Method Oxygen Flow Rate Fraction of Inspired Oxygen 10/22/23 08:37 10/22/23 08:41 10/22/23 09:00 Temperature 98.8 F Pulse Rate 122 H 119 H 119 H Respiratory Rate 31 H Blood Pressure 135/65 Pulse Oximetry 95 95 Oxygen Delivery Method Nasal Cannula Oxygen Flow Rate 3 Fraction of Inspired Oxygen 32 10/22/23 09:06 10/22/23 09:06 10/22/23 09:30 Temperature Pulse Rate 119 H 116 H Respiratory Rate 33 H 30 H Blood Pressure 128/56 L Pulse Oximetry 96 94 Oxygen Delivery Method Oxygen Flow Rate Fraction of Inspired Oxygen 10/22/23 10:00 10/22/23 10:00 10/22/23 10:30 Temperature Pulse Rate 118 H 115 H Respiratory Rate 28 H 26 H Blood Pressure 132/59 L Pulse Oximetry 93 Oxygen Delivery Method Oxygen Flow Rate Fraction of Inspired Oxygen 10/22/23 11:00 10/22/23 11:30 10/22/23 12:00 Temperature Pulse Rate 108 H 106 H 110 H Respiratory Rate 29 H 27 H 20 Blood Pressure Pulse Oximetry 96 96 97 Oxygen Delivery Method Oxygen Flow Rate Fraction of Inspired Oxygen 10/22/23 12:12 10/22/23 12:12 10/22/23 12:13 Temperature Pulse Rate 110 H 110 H Respiratory Rate 25 H 18 Blood Pressure 134/68 134/68 Pulse Oximetry 97 96 Oxygen Delivery Method Oxygen Flow Rate 3 Fraction of Inspired Oxygen Fraction of Inspired Oxygen 32 SaO2/FiO2 Ratio 296 Oxygen Delivery Method Nasal Cannula Oxygen Flow Rate 3 Narrative Exam Narrative: Gen: ill appearing male, obese, no acute distress CV: RRR no m/r/g CV: CTA b/l Abd; S NT ND : white plaque of foreskin with mild erythema of his penile head, no cutaneous lesions Ext: b/l chronic venous stasis changes, with RLE erythema and warmth of his lower leg circumferentially. Objective Labs 10/21/23 21:35 10/22/23 08:15 Labs: Laboratory Results - last 24 hr 10/21/23 10/21/23 10/21/23 21:35 22:49 22:55 WBC 20.5 H RBC 5.55 Hgb 15.8 Hct 46.6 MCV 83.9 MCH 28.5 MCHC 34.0 RDW 14.0 Plt Count 328 Neut % (Auto) Not Reportable Lymph % (Auto) Not Reportable [place] % (Auto) Not Reportable Eos % (Auto) Not Reportable Baso % (Auto) Not Reportable Lymph # (Auto) Not Reportable [place] # (Auto) Not Reportable Baso # (Auto) Not Reportable Total Counted 100 Seg Neutrophils % 76.0 H Band Neutrophils % 11.0 H Lymphocytes % (Manual) 9.0 L Monocytes % (Manual) 3.0 Eosinophils % (Manual) 1.0 L Neutrophils # (Manual) 09307 H RBC Morphology Normal morphology PT 12.4 INR 1.1 APTT 29 D-Dimer 592 H Sodium 136 L Potassium 3.6 Chloride 96 L Carbon Dioxide 27 BUN 13 Creatinine 0.58 L Estimated GFR > 60 BUN/Creatinine Ratio 22.4 H Glucose 286 H Lactate 6.1 H* Calcium 9.7 Magnesium Total Bilirubin 0.8 AST 45 ALT 90 H Alkaline Phosphatase 87 NT-Pro-B Natriuret Pep < 20 Total Protein 8.4 H Albumin 4.6 Globulin 3.8 Albumin/Globulin Ratio 1.2 Lipase 120 Procalcitonin 0.11 Urine Color Urine Appearance Urine pH Ur Specific [place] Urine Protein Urine Glucose (UA) Urine Ketones Urine Occult Blood Urine Nitrate Urine Bilirubin Urine Urobilinogen Ur Leukocyte Esterase Urine RBC Urine WBC Ur Squamous Epith Cells Urine Bacteria Ur Culture Indicated? Nasal Screen MRSA (PCR) Chlamy pneumoniae PCR Not detected Adenovirus (PCR) Not detected B.parapertussis DNA PCR Not detected Coronavirus OC43 (PCR) Not detected Coronavirus HKU1 (PCR) Not detected Coronavirus 229E (PCR) Not detected SARS-CoV-2 (PCR) Not detected Coronavirus NL63 (PCR) Not detected Human Metapneumovir PCR Not detected Influenza Type A (PCR) Not detected Influenza Type B (PCR) Not detected M. pneumoniae (PCR) Not detected Parainfluenza 1 (PCR) Not detected Parainfluenza 2 (PCR) Not detected Parainfluenza 3 (PCR) Not detected Parainfluenza 4 (PCR) Not detected RSV (PCR) Not detected Entero/Rhino (PCR) Not detected 10/21/23 10/22/23 10/22/23 23:49 04:30 08:15 WBC RBC Hgb Hct MCV MCH MCHC RDW Plt Count Neut % (Auto) Lymph % (Auto) [place] % (Auto) Eos % (Auto) Baso % (Auto) Lymph # (Auto) [place] # (Auto) Baso # (Auto) Total Counted Seg Neutrophils % Band Neutrophils % Lymphocytes % (Manual) Monocytes % (Manual) Eosinophils % (Manual) Neutrophils # (Manual) RBC Morphology PT INR APTT D-Dimer Sodium 134 L Potassium 4.2 Chloride 101 Carbon Dioxide 25 BUN 12 Creatinine 0.57 L Estimated GFR > 60 BUN/Creatinine Ratio 21.1 Glucose 304 H Lactate 2.0 Calcium 8.3 L Magnesium 1.5 L Total Bilirubin 0.8 AST 24 ALT 45 Alkaline Phosphatase 66 NT-Pro-B Natriuret Pep Total Protein 6.8 Albumin 3.7 Globulin 3.1 Albumin/Globulin Ratio 1.2 Lipase Procalcitonin Urine Color Urine Appearance Urine pH Ur Specific [place] Urine Protein Urine Glucose (UA) Urine Ketones Urine Occult Blood Urine Nitrate Urine Bilirubin Urine Urobilinogen Ur Leukocyte Esterase Urine RBC Urine WBC Ur Squamous Epith Cells Urine Bacteria Ur Culture Indicated? Nasal Screen MRSA (PCR) Not detected Chlamy pneumoniae PCR Adenovirus (PCR) B.parapertussis DNA PCR Coronavirus OC43 (PCR) Coronavirus HKU1 (PCR) Coronavirus 229E (PCR) SARS-CoV-2 (PCR) Coronavirus NL63 (PCR) Human Metapneumovir PCR Influenza Type A (PCR) Influenza Type B (PCR) M. pneumoniae (PCR) Parainfluenza 1 (PCR) Parainfluenza 2 (PCR) Parainfluenza 3 (PCR) Parainfluenza 4 (PCR) RSV (PCR) Entero/Rhino (PCR) 10/22/23 08:28 WBC RBC Hgb Hct MCV MCH MCHC RDW Plt Count Neut % (Auto) Lymph % (Auto) [place] % (Auto) Eos % (Auto) Baso % (Auto) Lymph # (Auto) [place] # (Auto) Baso # (Auto) Total Counted Seg Neutrophils % Band Neutrophils % Lymphocytes % (Manual) Monocytes % (Manual) Eosinophils % (Manual) Neutrophils # (Manual) RBC Morphology PT INR APTT D-Dimer Sodium Potassium Chloride Carbon Dioxide BUN Creatinine Estimated GFR BUN/Creatinine Ratio Glucose Lactate Calcium Magnesium Total Bilirubin AST ALT Alkaline Phosphatase NT-Pro-B Natriuret Pep Total Protein Albumin Globulin Albumin/Globulin Ratio Lipase Procalcitonin Urine Color [place] Urine Appearance Cloudy Urine pH 5.5 Ur Specific [place] 1.020 Urine Protein 1+ H Urine Glucose (UA) 2+ H Urine Ketones Trace H Urine Occult Blood Trace-intact Urine Nitrate Negative Urine Bilirubin Negative Urine Urobilinogen 0.2 Ur Leukocyte Esterase Trace H Urine RBC 1-5/hpf Urine WBC 1-5/hpf Ur Squamous Epith Cells 1-5 /hpf Urine Bacteria Few (2-10) H Ur Culture Indicated? Specimen cultured Nasal Screen MRSA (PCR) Chlamy pneumoniae PCR Adenovirus (PCR) B.parapertussis DNA PCR Coronavirus OC43 (PCR) Coronavirus HKU1 (PCR) Coronavirus 229E (PCR) SARS-CoV-2 (PCR) Coronavirus NL63 (PCR) Human Metapneumovir PCR Influenza Type A (PCR) Influenza Type B (PCR) M. pneumoniae (PCR) Parainfluenza 1 (PCR) Parainfluenza 2 (PCR) Parainfluenza 3 (PCR) Parainfluenza 4 (PCR) RSV (PCR) Entero/Rhino (PCR) [facility] Medical History GERD (gastroesophageal reflux disease) HTN (hypertension) Diabetes Morbid obesity Lumbar strain Surgical History History of hip surgery Family History Mother Heart disease Father Heart disease Social History marital status: unmarried,living together household members: significant other occupational status: employed Smoking Status: Former smoker alcohol intake: current substance use type: marijuana Assessment & Plan Assessment & Plan narrative: #Cellulitis of right lower leg: - similar presentation last year with tachycardia, fever and improved with treatments /antibiotics, discharged on cephalexin with reported improvement. - continue ceftriaxone for now - #Diabetes: - restart home NPH (70-30 mix) 40 PM, 50 AM with adjustments as necessary and sliding scale. # GERD (gastroesophageal reflux disease): - continue home PPI with pantoprazole. # HTN (hypertension): - continue home amlodipine, lisinopril 10 # Morbid obesity: - The patient is at much higher risk for medical and surgical complications because of their obesity. This increases the difficulty and complexity of medical and surgical interventions and increases the chances of poor outcomes such as morbidity and mortality. #fungal infection of foreskin and penis - given one dose of fluconazole given extent of pain, ketoconazole cream ordered as well. Code: Full Dispo: Probable discharge home in 1-2 days Quality VTE Deep Vein Thrombosis/Pulmonary Embolism Present on Admission: No
--- NOTE | 2023-10-22 13:43 | P.HP_ITS ---
History of Present Illness History of Present Illness Date Patient Seen: 10/22/23 Time Patient Seen: 09:00 Chief complaint: Fever Narrative: Per overnight provider, 33 years old male with history of insulin-dependent diabetes, hypertension, GERD, morbidly obesity presented to the ED with fever, tachycardia and right leg pain since yesterday. He also was unable to walk due to pain. Reports having cellulitis the same leg. Denies any shortness of breath, cough, chest pain, palpitations, nausea, vomiting, abdominal pain, diarrhea or dysuria. Allergic to vancomycin and tobramycin with hives. She also reports some balanitis and testicular pain but self treating. Initial laboratory shows WBC 20, H&H 15.8/46.6, platelets 328, D-dimer 592, sodium 136, potassium 3.6, creatinine 0.58, blood sugar 286, BNP 20, procalcitonin 0.11, respiratory viral panel negative, chest x-ray unremarkable. Initial vital signs temperature 101.1, pulse 141, blood pressure 146/66, oxygen saturation 93% on nasal cannula. He was started on ceftriaxone 1 g IV, Toradol 30 mg IV, NS bolus 2 L, Zofran IV and Tylenol p.o. This morning Continues to have a lot of pain, difficulty with ambulation, and swelling today. No changes reported this morning, may be slightly improved. ON LICENSE OF [facility] Medical History GERD (gastroesophageal reflux disease) HTN (hypertension) Diabetes Morbid obesity Lumbar strain Surgical History History of hip surgery Family History Mother Heart disease Father Heart disease Social History marital status: unmarried,living together household members: significant other occupational status: employed Smoking Status: Former smoker alcohol intake: current substance use type: marijuana Meds Home Medications and Allergies Home Medications Medication Instructions Recorded Confirmed Type omeprazole 40 mg capsule,delayed 40 mg PO DAILY 12/26/18 10/22/23 History release amlodipine 5 mg tablet (Norvasc) 5 mg PO DAILY 06/05/21 10/22/23 History insulin NPH-reg human insulin 100 40 unit SUBCUT ONCE PM 06/05/21 10/22/23 History unit/mL (70-30) subcutaneous syringe insulin NPH-reg human insulin 100 50 unit SUBCUT QAM 06/05/21 10/22/23 History unit/mL (70-30) subcutaneous syringe lisinopril 10 mg tablet 10 mg PO DAILY 06/05/21 10/22/23 History ibuprofen 800 mg tablet 800 mg PO Q8H PRN pain #21 tabs 05/17/22 10/22/23 Rx fluconazole 150 mg tablet 150 mg PO Q3D 2 doses #2 tabs 06/05/22 10/22/23 Rx lidocaine 5 % topical ointment 1 applic topical QID PRN pain #30 03/12/23 10/22/23 Rx grams liraglutide 0.6 mg/0.1 mL (18 mg/3 1.8 mg SUBCUT DAILY 10/22/23 10/22/23 History mL) subcutaneous pen injector (GrabInboxtoza 3-Mike) Allergies Allergy/AdvReac Type Severity Reaction Status Date / Time vancomycin Allergy Intermediate Rash Verified 10/21/23 21:43 tramadol [From ULTRAM] Allergy Unknown Verified 10/21/23 21:43 tobramycin Allergy Rash Verified 10/21/23 21:43 Review of Systems Review of Systems Narrative: All other systems reviewed with the patient and are negative unless otherwise stated. Exam Vital Signs (past 8 hours): - 10/22/23 06:00 10/22/23 06:00 10/22/23 06:30 Temperature Pulse Rate 119 H 121 H Respiratory Rate 34 H 31 H Blood Pressure 127/56 L Pulse Oximetry 96 93 Oxygen Delivery Method Oxygen Flow Rate Fraction of Inspired Oxygen 10/22/23 07:00 10/22/23 07:00 10/22/23 07:30 Temperature Pulse Rate 122 H 122 H Respiratory Rate 22 22 Blood Pressure 133/63 Pulse Oximetry 94 96 Oxygen Delivery Method Oxygen Flow Rate Fraction of Inspired Oxygen 10/22/23 08:00 10/22/23 08:00 10/22/23 08:30 Temperature Pulse Rate 122 H 121 H Respiratory Rate 30 H 29 H Blood Pressure 136/65 Pulse Oximetry 93 95 Oxygen Delivery Method Oxygen Flow Rate Fraction of Inspired Oxygen 10/22/23 08:37 10/22/23 08:41 10/22/23 09:00 Temperature 98.8 F Pulse Rate 122 H 119 H 119 H Respiratory Rate 31 H Blood Pressure 135/65 Pulse Oximetry 95 95 Oxygen Delivery Method Nasal Cannula Oxygen Flow Rate 3 Fraction of Inspired Oxygen 32 10/22/23 09:06 10/22/23 09:06 10/22/23 09:30 Temperature Pulse Rate 119 H 116 H Respiratory Rate 33 H 30 H Blood Pressure 128/56 L Pulse Oximetry 96 94 Oxygen Delivery Method Oxygen Flow Rate Fraction of Inspired Oxygen 10/22/23 10:00 10/22/23 10:00 10/22/23 10:30 Temperature Pulse Rate 118 H 115 H Respiratory Rate 28 H 26 H Blood Pressure 132/59 L Pulse Oximetry 93 Oxygen Delivery Method Oxygen Flow Rate Fraction of Inspired Oxygen 10/22/23 11:00 10/22/23 11:30 10/22/23 12:00 Temperature Pulse Rate 108 H 106 H 110 H Respiratory Rate 29 H 27 H 20 Blood Pressure Pulse Oximetry 96 96 97 Oxygen Delivery Method Oxygen Flow Rate Fraction of Inspired Oxygen 10/22/23 12:12 10/22/23 12:12 10/22/23 12:13 Temperature Pulse Rate 110 H 110 H Respiratory Rate 25 H 18 Blood Pressure 134/68 134/68 Pulse Oximetry 97 96 Oxygen Delivery Method Oxygen Flow Rate 3 Fraction of Inspired Oxygen Fraction of Inspired Oxygen 32 SaO2/FiO2 Ratio 296 Oxygen Delivery Method Nasal Cannula Oxygen Flow Rate 3 Narrative Exam Narrative: Gen: ill appearing male, obese, no acute distress CV: RRR no m/r/g CV: CTA b/l Abd; S NT ND : white plaque of foreskin with mild erythema of his penile head, no cutaneous lesions Ext: b/l chronic venous stasis changes, with RLE erythema and warmth of his lower leg circumferentially. Objective Labs 10/21/23 21:35 10/22/23 08:15 Labs: Laboratory Results - last 24 hr 10/21/23 10/21/23 10/21/23 21:35 22:49 22:55 WBC 20.5 H RBC 5.55 Hgb 15.8 Hct 46.6 MCV 83.9 MCH 28.5 MCHC 34.0 RDW 14.0 Plt Count 328 Neut % (Auto) Not Reportable Lymph % (Auto) Not Reportable [place] % (Auto) Not Reportable Eos % (Auto) Not Reportable Baso % (Auto) Not Reportable Lymph # (Auto) Not Reportable [place] # (Auto) Not Reportable Baso # (Auto) Not Reportable Total Counted 100 Seg Neutrophils % 76.0 H Band Neutrophils % 11.0 H Lymphocytes % (Manual) 9.0 L Monocytes % (Manual) 3.0 Eosinophils % (Manual) 1.0 L Neutrophils # (Manual) 06502 H RBC Morphology Normal morphology PT 12.4 INR 1.1 APTT 29 D-Dimer 592 H Sodium 136 L Potassium 3.6 Chloride 96 L Carbon Dioxide 27 BUN 13 Creatinine 0.58 L Estimated GFR > 60 BUN/Creatinine Ratio 22.4 H Glucose 286 H Lactate 6.1 H* Calcium 9.7 Magnesium Total Bilirubin 0.8 AST 45 ALT 90 H Alkaline Phosphatase 87 NT-Pro-B Natriuret Pep < 20 Total Protein 8.4 H Albumin 4.6 Globulin 3.8 Albumin/Globulin Ratio 1.2 Lipase 120 Procalcitonin 0.11 Urine Color Urine Appearance Urine pH Ur Specific [place] Urine Protein Urine Glucose (UA) Urine Ketones Urine Occult Blood Urine Nitrate Urine Bilirubin Urine Urobilinogen Ur Leukocyte Esterase Urine RBC Urine WBC Ur Squamous Epith Cells Urine Bacteria Ur Culture Indicated? Nasal Screen MRSA (PCR) Chlamy pneumoniae PCR Not detected Adenovirus (PCR) Not detected B.parapertussis DNA PCR Not detected Coronavirus OC43 (PCR) Not detected Coronavirus HKU1 (PCR) Not detected Coronavirus 229E (PCR) Not detected SARS-CoV-2 (PCR) Not detected Coronavirus NL63 (PCR) Not detected Human Metapneumovir PCR Not detected Influenza Type A (PCR) Not detected Influenza Type B (PCR) Not detected M. pneumoniae (PCR) Not detected Parainfluenza 1 (PCR) Not detected Parainfluenza 2 (PCR) Not detected Parainfluenza 3 (PCR) Not detected Parainfluenza 4 (PCR) Not detected RSV (PCR) Not detected Entero/Rhino (PCR) Not detected 10/21/23 10/22/23 10/22/23 23:49 04:30 08:15 WBC RBC Hgb Hct MCV MCH MCHC RDW Plt Count Neut % (Auto) Lymph % (Auto) [place] % (Auto) Eos % (Auto) Baso % (Auto) Lymph # (Auto) [place] # (Auto) Baso # (Auto) Total Counted Seg Neutrophils % Band Neutrophils % Lymphocytes % (Manual) Monocytes % (Manual) Eosinophils % (Manual) Neutrophils # (Manual) RBC Morphology PT INR APTT D-Dimer Sodium 134 L Potassium 4.2 Chloride 101 Carbon Dioxide 25 BUN 12 Creatinine 0.57 L Estimated GFR > 60 BUN/Creatinine Ratio 21.1 Glucose 304 H Lactate 2.0 Calcium 8.3 L Magnesium 1.5 L Total Bilirubin 0.8 AST 24 ALT 45 Alkaline Phosphatase 66 NT-Pro-B Natriuret Pep Total Protein 6.8 Albumin 3.7 Globulin 3.1 Albumin/Globulin Ratio 1.2 Lipase Procalcitonin Urine Color Urine Appearance Urine pH Ur Specific [place] Urine Protein Urine Glucose (UA) Urine Ketones Urine Occult Blood Urine Nitrate Urine Bilirubin Urine Urobilinogen Ur Leukocyte Esterase Urine RBC Urine WBC Ur Squamous Epith Cells Urine Bacteria Ur Culture Indicated? Nasal Screen MRSA (PCR) Not detected Chlamy pneumoniae PCR Adenovirus (PCR) B.parapertussis DNA PCR Coronavirus OC43 (PCR) Coronavirus HKU1 (PCR) Coronavirus 229E (PCR) SARS-CoV-2 (PCR) Coronavirus NL63 (PCR) Human Metapneumovir PCR Influenza Type A (PCR) Influenza Type B (PCR) M. pneumoniae (PCR) Parainfluenza 1 (PCR) Parainfluenza 2 (PCR) Parainfluenza 3 (PCR) Parainfluenza 4 (PCR) RSV (PCR) Entero/Rhino (PCR) 10/22/23 08:28 WBC RBC Hgb Hct MCV MCH MCHC RDW Plt Count Neut % (Auto) Lymph % (Auto) [place] % (Auto) Eos % (Auto) Baso % (Auto) Lymph # (Auto) [place] # (Auto) Baso # (Auto) Total Counted Seg Neutrophils % Band Neutrophils % Lymphocytes % (Manual) Monocytes % (Manual) Eosinophils % (Manual) Neutrophils # (Manual) RBC Morphology PT INR APTT D-Dimer Sodium Potassium Chloride Carbon Dioxide BUN Creatinine Estimated GFR BUN/Creatinine Ratio Glucose Lactate Calcium Magnesium Total Bilirubin AST ALT Alkaline Phosphatase NT-Pro-B Natriuret Pep Total Protein Albumin Globulin Albumin/Globulin Ratio Lipase Procalcitonin Urine Color [place] Urine Appearance Cloudy Urine pH 5.5 Ur Specific [place] 1.020 Urine Protein 1+ H Urine Glucose (UA) 2+ H Urine Ketones Trace H Urine Occult Blood Trace-intact Urine Nitrate Negative Urine Bilirubin Negative Urine Urobilinogen 0.2 Ur Leukocyte Esterase Trace H Urine RBC 1-5/hpf Urine WBC 1-5/hpf Ur Squamous Epith Cells 1-5 /hpf Urine Bacteria Few (2-10) H Ur Culture Indicated? Specimen cultured Nasal Screen MRSA (PCR) Chlamy pneumoniae PCR Adenovirus (PCR) B.parapertussis DNA PCR Coronavirus OC43 (PCR) Coronavirus HKU1 (PCR) Coronavirus 229E (PCR) SARS-CoV-2 (PCR) Coronavirus NL63 (PCR) Human Metapneumovir PCR Influenza Type A (PCR) Influenza Type B (PCR) M. pneumoniae (PCR) Parainfluenza 1 (PCR) Parainfluenza 2 (PCR) Parainfluenza 3 (PCR) Parainfluenza 4 (PCR) RSV (PCR) Entero/Rhino (PCR) Assessment & Plan Assessment & Plan narrative: #Cellulitis of right lower leg: - similar presentation last year with tachycardia, fever and improved with treatments /antibiotics, discharged on cephalexin with reported improvement. - continue ceftriaxone for now #Diabetes: - restart home NPH (70-30 mix) 40 PM, 50 AM with adjustments as necessary and sliding scale. # GERD (gastroesophageal reflux disease): - continue home PPI with pantoprazole. # HTN (hypertension): - continue home amlodipine, lisinopril 10 # Morbid obesity: - The patient is at much higher risk for medical and surgical complications because of their obesity. This increases the difficulty and complexity of medical and surgical interventions and increases the chances of poor outcomes such as morbidity and mortality. #fungal infection of foreskin and penis - given one dose of fluconazole given extent of pain, ketoconazole cream ordered as well. Code: Full Dispo: Probable discharge home in 1-2 days I have utilized all available immediate resources to obtain, update, or review the patient's current medications. Quality VTE Deep Vein Thrombosis/Pulmonary Embolism Present on Admission: No
[2023-10-22] MEDS: INSULIN 70-30 KwikPen 100 UNIT/ML INSULN.PEN 40 UNIT SUBCUT (16:56)
--- NOTE | 2023-10-22 16:59 | CM.DANOTE ---
DCP Assessment Note Patient is a 33 yo M here following cellulites in his leg. PCP Yoselin Santos [facility] and medicaid LEAD SYSTEMS ENGINEER reviewed EMR. Per provider, likely home in a day or two. Per RN, floor care status. Can't stand on leg. LEAD SYSTEMS ENGINEER entered room and introduced self and role. Patient resting in bed. Pt lives with gómez Holloway [phone] in [place]. 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 Pt is indep/drives at baseline. Pt reports no needs from CM team. Plan: home with gómez when stable. fiance to transport. No needs from CM team at this time. CM team will continue to follow as needed CHIDI Ashley Discharge Planning/Care Management CM Discharge Assessment Start: 10/22/23 16:58 Freq: Status: Active Protocol: Document 10/22/23 16:58 (Rec: 10/22/23 16:59 [id number]) Discharge Planning Assessment Assigned Opener Tender CHIDI Elmore DPOA/Assigned Designee Name Jewel camilo) Contact Information [phone] Advance Directives? No History Provided By Patient,Medical Record Prior Living Arrangements Apartment/Condo Household Members significant other Type of transporation used prior to Drives own vehicle admit Independent with ADL's Yes Is patient alert and oriented? Yes Discharge Plan Home Transportation Arrangement self or partner will transport Referrals Initiated None needed Whiteboard Updated in Patient Room with Yes name and ext. # of Opener Tender Review Status In Process Next Review Type Continued Stay Review
[2023-10-22] MEDS: ACETAMINOPHEN 325 MG TABLET 650 MG PO (19:58)
[2023-10-22] MEDS: cefTRIAXone 2,000 MG in SODIUM CHLORIDE 0.9% 100 ML 200 MG IV (20:31)
[2023-10-23] VITALS (19 sets, daily range): BP systolic 106–153; BP diastolic 59–83; PULSE 88–104; RESP 9–31; TEMP 35.8–37.8; O2SAT 92–98
[2023-10-23] MEDS: MORPHINE 4 MG/ML INJ 3 MG IV (03:38)
[2023-10-23] MEDS: ACETAMINOPHEN 325 MG TABLET 650 MG PO ×3 (03:39→18:50)
--- NOTE | 2023-10-23 05:55 | PC.NURSE ---
Variety Saw Operator Note-Patient has had significant pain to RLE, erythema darker and small scattered blisters formed to anterior contreras, rates pain 8-9/10, 3mg IV prn has been effective. Also has ''severe headache and neck stiffness temp 100.0. Tylenol has been effective. HR 115 at beginning of shift, down to 80s in am. Use own C-pap with 2.5L O2 bleed-in.
[2023-10-23] MEDS: lisinopriL 10 MG TABLET PO (08:20)
[2023-10-23] MEDS: AMLODIPINE 5 MG TABLET PO (08:20)
[2023-10-23] MEDS: PANTOPRAZOLE DR 40 MG TABLET PO (08:20)
[2023-10-23] MEDS: KETOCONAZOLE 2% CREAM 15 GM 1 APPLIC TOP (08:24)
[2023-10-23] MEDS: INSULIN 70-30 KwikPen 100 UNIT/ML INSULN.PEN 50 UNIT SUBCUT ×2 (08:25→17:15)
[2023-10-23] MEDS: SODIUM CHLORIDE 0.9% 1,000 ML 100 ML IV ×2 (08:26→18:50)
[2023-10-23 09:21] LABS: Alanine Aminotransferase 40 IU/L (<50); Albumin 3.4 g/dL (3.5-5.0); Albumin Globulin Ratio 1.1 (1.0-2.8); Alkaline Phosphatase 67 U/L (38-126); Aspartate Aminotransferase 25 IU/L (17-59); BUN Creatinine Ratio 26.8 (6-22); Bilirubin Total 0.5 mg/dL (0.2-1.3); Blood Urea Nitrogen 11 mg/dL (9-20); Calcium 8.5 mg/dL (8.4-10.2); Carbon Dioxide 28 mmol/L (22-32); Chloride 103 mmol/L (98-107); Estimated Glomerular Filt Rate > 60 mL/min (>60); Globulin 3.2 g/dL (1.7-4.1); Glucose 216 mg/dL (70-100); HEMOLYSIS < 15 (0-50); Sodium 136 mmol/L (137-145); Total Protein 6.6 g/dL (6.3-8.2)
[2023-10-23] MEDS: methocarbamoL 500 MG TABLET 750 MG PO ×2 (11:23→18:56)
--- NOTE | 2023-10-23 11:56 | P.PN_ITS ---
Subjective Subjective Interval history: 33 M admitted with RLE cellulitis. He continues to have significant pain today though erythema and swelling are a bit improved. Tmax 100 overnight. Otherwise feels a bit better today. Exam Vital Signs (past 8 hours): - 10/23/23 08:00 10/23/23 08:00 10/23/23 08:54 Pulse Rate 95 H 94 H Respiratory Rate 26 H Blood Pressure 127/64 Pulse Oximetry 96 96 Oxygen Delivery Method Nasal Cannula Nasal Cannula Oxygen Flow Rate 2 2 Fraction of Inspired Oxygen 28 Fraction of Inspired Oxygen 28 SaO2/FiO2 Ratio 342 Oxygen Delivery Method Nasal Cannula Oxygen Flow Rate 2 Narrative Exam Narrative: Gen: ill appearing male, obese, no acute distress CV: RRR no m/r/g CV: CTA b/l Abd; S NT ND Ext: b/l chronic venous stasis changes, with RLE erythema and warmth of his lower leg circumferentially. Objective Labs 10/21/23 21:35 10/23/23 08:30 Labs: Laboratory Results - last 24 hr 10/23/23 08:30 Sodium 136 L Potassium 4.0 Chloride 103 Carbon Dioxide 28 BUN 11 Creatinine 0.41 L Estimated GFR > 60 BUN/Creatinine Ratio 26.8 H Glucose 216 H Calcium 8.5 Magnesium 2.0 Total Bilirubin 0.5 AST 25 ALT 40 Alkaline Phosphatase 67 Total Protein 6.6 Albumin 3.4 L Globulin 3.2 Albumin/Globulin Ratio 1.1 [facility] Medical History GERD (gastroesophageal reflux disease) HTN (hypertension) Diabetes Morbid obesity Lumbar strain Surgical History History of hip surgery Family History Mother Heart disease Father Heart disease Social History marital status: unmarried,living together household members: significant other occupational status: employed Smoking Status: Former smoker alcohol intake: current substance use type: marijuana Assessment & Plan Assessment & Plan narrative: #Cellulitis of right lower leg: - similar presentation last year with tachycardia, fever and improved with treatments /antibiotics, discharged on cephalexin with reported improvement. - continue ceftriaxone for now only, he has improvement today in erythema, though pain continues - increase oral pain medications, add muscle relaxants. #Diabetes: - restarted home NPH (70-30 mix) 40 PM, 50 AM with adjustments as necessary and sliding scale. - will increase to 55 units in PM, 55 units AM as glucose levels persistently >200. # GERD (gastroesophageal reflux disease): - continue home PPI with pantoprazole. # HTN (hypertension): - continue home amlodipine, lisinopril 10 # Morbid obesity: - The patient is at much higher risk for medical and surgical complications because of their obesity. This increases the difficulty and complexity of medical and surgical interventions and increases the chances of poor outcomes such as morbidity and mortality. #fungal infection of foreskin and penis - given one dose of fluconazole given extent of pain, ketoconazole cream ordered as well. Fluconazole can be repeated after 72 hours if still persistent. Code: Full Dispo: Probable discharge home in 1-2 days, Inpatient status I have utilized all available immediate resources to obtain, update, or review the patient's current medications. Quality VTE Deep Vein Thrombosis/Pulmonary Embolism Present on Admission: No
[2023-10-23] MEDS: OXYCODONE IR 10 MG TABLET PO ×2 (12:19→18:50)
[2023-10-23] MEDS: IBUPROFEN 600 MG TABLET PO ×2 (12:20→18:50)
[2023-10-23] MEDS: LIDOCAINE 2% (GLYDO) 6 ML GEL TOP (14:43)
--- NOTE | 2023-10-23 17:37 | PC.NURSE ---
Day Shift Note Pt alert and oriented x3, afebrile this shift. SpO2 upper 90s on RA while awake, on 2L NC while sleeping (with or without home CPAP) to maintain saturations above 92%. Denies headache this AM, reports neck soreness as improved. Main source of pain reported to be right leg which is erythemic from knee to the ankle, small contained blisters along contreras. Received prn oxycodone, robaxin, tylenol, and ibuprofen which pt reported as effective. Up to shower today with help of Oliva Juan. Pt applied ketoconazole to penis for fungal infection, also applied lidocaine to help with pain control. Pt concerned about possible outbreak of herpes, Dr. Cuevas had assessed penis yesterday for same but pt requesting reassessment at this time. This was relayed to Dr. Cuevas. Call light within reach, using appropriately to make needs known.
[2023-10-23] MEDS: cefTRIAXone 2,000 MG in SODIUM CHLORIDE 0.9% 100 ML 200 MG IV (21:05)
[2023-10-24] VITALS: BP 120/72; PULSE 87; RESP 18; TEMP 36.1; O2SAT 98
[2023-10-24 04:00] VITALS: BP 108/59; PULSE 84; RESP 17; TEMP 36.3; O2SAT 98
[2023-10-24] MEDS: SODIUM CHLORIDE 0.9% 1,000 ML 100 ML IV (05:45)
--- NOTE | 2023-10-24 06:38 | PC.NURSE ---
pt was awake until almost midnight, then he put on his cpap and has slept the remainder of the shift; he has not complained of pain this shift
[2023-10-24 08:00] VITALS: BP 139/71; PULSE 88; RESP 22; TEMP 35.9; O2SAT 97
[2023-10-24 08:44] VITALS: BP 138/77; PULSE 93
[2023-10-24] MEDS: lisinopriL 10 MG TABLET PO (08:44)
[2023-10-24] MEDS: PANTOPRAZOLE DR 40 MG TABLET PO (08:47)
[2023-10-24] MEDS: INSULIN 70-30 KwikPen 100 UNIT/ML INSULN.PEN 55 UNIT SUBCUT (08:48)
[2023-10-24] MEDS: AMLODIPINE 5 MG TABLET PO (08:48)
[2023-10-24] MEDS: KETOCONAZOLE 2% CREAM 15 GM 1 APPLIC TOP (08:55)
[2023-10-24 09:43] LABS: Alanine Aminotransferase 44 IU/L (<50); Albumin 3.3 g/dL (3.5-5.0); Albumin Globulin Ratio 1.1 (1.0-2.8); Alkaline Phosphatase 68 U/L (38-126); Aspartate Aminotransferase 33 IU/L (17-59); BUN Creatinine Ratio 33.3 (6-22); Bilirubin Total 0.5 mg/dL (0.2-1.3); Blood Urea Nitrogen 13 mg/dL (9-20); Calcium 8.6 mg/dL (8.4-10.2); Carbon Dioxide 26 mmol/L (22-32); Chloride 106 mmol/L (98-107); Estimated Glomerular Filt Rate > 60 mL/min (>60); Glucose 244 mg/dL (70-100); HEMOLYSIS 15 (0-50); Potassium 4.1 mmol/L (3.4-5.1); Sodium 138 mmol/L (137-145); Total Protein 6.3 g/dL (6.3-8.2)
[2023-10-24 10:11] LABS: Add Manual Diff / Slide Review NO; Basophils Absolute Auto 0 /uL (0-100); Basophils Percent Auto 0.5 % (0-2); Eosinophils Absolute Auto 100 /uL (0-450); Eosinophils Percent Auto 1.2 % (2-4); Hematocrit 39.3 % (41-53); Hemoglobin 13.8 g/dL (13.5-17.5); Lymphocytes Absolute Auto 1200 /uL (1100-4500); Lymphocytes Percent Auto 19.7 % (25-40); Mean Corpuscular HGB Conc 35.1 % (30-36); Mean Corpuscular Hemoglobin 29.1 PG (26-34); Mean Corpuscular Volume 82.9 fL (80-100); Monocytes Absolute Auto 500 /uL (0-900); Monocytes Percent Auto 8.6 % (3-14); Neutrophils Absolute Auto 4100 /uL (1500-7000); Platelet Count 251 X10^3/uL (150-400); Red Blood Cell Count 4.74 X10^6/uL (4.5-5.9); Red Cell Distribution Width 14.1 % (11.6-14.8); White Blood Cell Count 5.9 X10^3/uL (4.5-11.0)
[2023-10-24 12:00] VITALS: BP 149/89; PULSE 94; RESP 20; TEMP 36.3; O2SAT 96
[2023-10-24 13:00] VITALS: O2SAT 92
--- NOTE | 2023-10-24 13:39 | P.DS_ITS ---
History of Present Illness History of Present Illness Date Patient Seen: 10/22/23 Time Patient Seen: 09:00 Chief complaint: Fever Narrative: Per overnight provider, 33 years old male with history of insulin-dependent diabetes, hypertension, GERD, morbidly obesity presented to the ED with fever, tachycardia and right leg pain since yesterday. He also was unable to walk due to pain. Reports having cellulitis the same leg. Denies any shortness of breath, cough, chest pain, palpitations, nausea, vomiting, abdominal pain, diarrhea or dysuria. Allergic to vancomycin and tobramycin with hives. She also reports some balanitis and testicular pain but self treating. Initial laboratory shows WBC 20, H&H 15.8/46.6, platelets 328, D-dimer 592, sodium 136, potassium 3.6, creatinine 0.58, blood sugar 286, BNP 20, procalcitonin 0.11, respiratory viral panel negative, chest x-ray unremarkable. Initial vital signs temperature 101.1, pulse 141, blood pressure 146/66, oxygen saturation 93% on nasal cannula. He was started on ceftriaxone 1 g IV, Toradol 30 mg IV, NS bolus 2 L, Zofran IV and Tylenol p.o. This morning Continues to have a lot of pain, difficulty with ambulation, and swelling today. No changes reported this morning, may be slightly improved. Discharge Providers Provider Date of admission: 10/22/23 02:49 Discharge Date: 10/24/23 Consults: 10/22/23 01:23 Consult to Discharge Planning Routine Comment: Discharge provider: Holger Emanuel DO Summary Hospital Course Discharge Diagnosis: #Cellulitis of right lower leg: - similar presentation last year with tachycardia, fever and improved with treatments /antibiotics, discharged on cephalexin with reported improvement. - continue ceftriaxone for now only, he has improvement today in erythema, though pain continues - increase oral pain medications, add muscle relaxants. - redness and warmth fully resolved, discharged to finish 5 day course on 2 more days of po cefdinir #Diabetes: - restarted home NPH (70-30 mix) 40 PM, 50 AM with adjustments as necessary and sliding scale. - will increase to 55 units in PM, 55 units AM as glucose levels persistently >200. # GERD (gastroesophageal reflux disease): - continue home PPI with pantoprazole. # HTN (hypertension): - continue home amlodipine, lisinopril 10 # Morbid obesity: - The patient is at much higher risk for medical and surgical complications because of their obesity. This increases the difficulty and complexity of medical and surgical interventions and increases the chances of poor outcomes such as morbidity and mortality. #fungal infection of foreskin and penis - given one dose of fluconazole given extent of pain, ketoconazole cream ordered as well. Fluconazole can be repeated after 72 hours if still persistent. Hospital Course: Admitted for rapidly developing RLE cellulitis. Improved with rocephin IV. Developed fungal rash on penis which improved with antifungal cream and dose of diflucan. Discharged home on po cefdinir to finish 5 day course of abx. Exam Vital Signs (past 8 hours): - 10/24/23 07:00 10/24/23 08:00 10/24/23 08:44 Temperature 96.6 F L Pulse Rate 88 93 H Respiratory Rate 22 Blood Pressure 139/71 138/77 Pulse Oximetry 97 Oxygen Delivery Method Room Air Oxygen Flow Rate 0 10/24/23 12:00 10/24/23 13:00 Temperature 97.4 F L Pulse Rate 94 H Respiratory Rate 20 Blood Pressure 149/89 H Pulse Oximetry 96 92 Oxygen Delivery Method Oxygen Flow Rate 0 2 Fraction of Inspired Oxygen 28 SaO2/FiO2 Ratio 342 Oxygen Delivery Method Room Air Oxygen Flow Rate 2 Narrative Exam Narrative: Gen: obese, no acute distress CV: RRR no m/r/g CV: CTA b/l Abd; S NT ND Ext: b/l chronic venous stasis changes with edema, with RLE erythema and warmth of his lower leg completely resolved Objective Labs 10/24/23 09:58 10/24/23 09:14 Labs: Laboratory Results - last 24 hr 10/24/23 10/24/23 09:14 09:58 WBC 5.9 RBC 4.74 Hgb 13.8 Hct 39.3 L MCV 82.9 MCH 29.1 MCHC 35.1 RDW 14.1 Plt Count 251 Neut % (Auto) 70.0 Lymph % (Auto) 19.7 L [place] % (Auto) 8.6 Eos % (Auto) 1.2 L Baso % (Auto) 0.5 Neut # (Auto) 4100 Lymph # (Auto) 1200 [place] # (Auto) 500 Eos # (Auto) 100 Baso # (Auto) 0 Sodium 138 Potassium 4.1 Chloride 106 Carbon Dioxide 26 BUN 13 Creatinine 0.39 L Estimated GFR > 60 BUN/Creatinine Ratio 33.3 H Glucose 244 H Calcium 8.6 Magnesium 2.0 Total Bilirubin 0.5 AST 33 ALT 44 Alkaline Phosphatase 68 Total Protein 6.3 Albumin 3.3 L Globulin 3.0 Albumin/Globulin Ratio 1.1 PFS Medical History GERD (gastroesophageal reflux disease) HTN (hypertension) Diabetes Morbid obesity Lumbar strain Surgical History History of hip surgery Family History Mother Heart disease Father Heart disease Social History marital status: unmarried,living together household members: significant other occupational status: employed Smoking Status: Former smoker alcohol intake: current substance use type: marijuana Discharge Plan Discharge Plan Patient Disposition: Home Provider Discharge Comment: You were admitted for a right leg skin infection. You received IV antibiotics while in the hospital and your infection improved. You will now need to finish a course of oral antibiotics at home for 2 more days. Discharge orders & Medications Prescriptions: New cefdinir 300 mg capsule 300 mg PO BID 2 Days Qty: 4 0RF Rx Instructions: start on 10/25 Continued amlodipine [Norvasc] 5 mg Tablet 5 mg PO DAILY lisinopril 10 mg Tablet 10 mg PO DAILY insulin NPH and regular human 100 unit/mL (70-30) Syringe 50 unit SUBCUT QAM insulin NPH and regular human 100 unit/mL (70-30) Syringe 40 unit SUBCUT ONCE PM ibuprofen 800 mg tablet 800 mg PO Q8H PRN (Reason: pain) Qty: 21 0RF lidocaine 5 % ointment 1 applic topical QID PRN (Reason: pain) Qty: 30 2RF omeprazole 40 mg Capsule,Delayed Release(Dr/Ec) 40 mg PO DAILY fluconazole 150 mg tablet 150 mg PO Q3D Qty: 2 0RF Patient Comments: No longer taking Rx Instructions: may repeat second dose 72 hrs after first dose if symptoms persist Victoza 3-Mike 0.6 mg/0.1 mL (18 mg/3 mL) pen injector 1.8 mg SUBCUT DAILY Patient Comments: inject 0.6 milligram subcutaneously daily for 7 days then INCREAS... (REFER TO PRESCRIPTION NOTES). Visit Report/Discharge Packet Stand Alone Forms: Patient Portal/API, Stroke Signs & Symptoms Quality VTE Deep Vein Thrombosis/Pulmonary Embolism Present on Admission: No
--- NOTE | 2023-10-24 14:41 | PC.NURSE ---
pt discharged, A/Ox4, taken by wheelchair to POV driven by [employer].
--- NOTE | 2023-10-24 15:30 | CM.DPC ---
DCP Discharge Home Per MD, pt is medically stable to d/c home today with no identified barriers to discharge and po meds and outpt f/u. Per RN, no concerns noted and discharge instructions provided and pt has transport home. Plan: Patient to d/c home today to her nearby apartment via [facility] POV and no further SW needs at this time. CHIDI Jaramillo
== END 2023-10-24 14:40 | disposition home or self-care (01) | DRG 720 ==
LOC: ED 23:18 → ICU 10-22 03:52 → AC 11-05 12:39
PROVIDERS: Student in an Organized Health Care Education/Training Program; Admitting Provider Internal Medicine; Emergency Provider Emergency Medicine; Referring Provider Emergency Medicine; Visit Provider Internal Medicine
DX: A41.9 Sepsis, unspecified organism (principal); L03.115 Cellulitis of right lower limb; E66.01 Morbid (severe) obesity due to excess calories; E11.9 Type 2 diabetes mellitus without complications; K21.9 Gastro-esophageal reflux disease without esophagitis; I10 Essential (primary) hypertension; B36.9 Superficial mycosis, unspecified; Z68.43 Body mass index [BMI] 50.0-59.9, adult; Z79.84 Long term (current) use of oral hypoglycemic drugs; Z79.4 Long term (current) use of insulin; Z87.891 Personal history of nicotine dependence
CPT/HCPCS: 36415; 71045; 71275; 73701; 80053; 81001; 82962; 83605; 83690; 83735; 83880; 84145; 85007; 85025; 85379; 85610; 85730; 87040; 87077; 87086; 87633; 87797; 93005; 94762; 96365; 96375; 99285; G0378; J0131; J0696; J1815; J1885; J2270; Q9967